=== PATIENT | female | born 1955 | race Caucasian/White ===

== ENCOUNTER 2018-01-27 13:28 | Emergency (ER) | payer MEDICARE, OTHER ==
[~2018-01-27] VITALS: Ht 160 cm; Wt 92.5 kg
[~2018-01-27 13:28] MED LIST: ALBIPROI; ALBU90OI INH; ALPR.25 PO; AMIT10 PO; AMOCLA500 PO; BUPR150T2; BUSP10 PO; BUSP15 PO; CYCL10 PO; Diflucan100 MG PO; ESCI20 PO; ESTR.625; FOLI1 PO; FURO40; GLIP5 PO; HUMIRA40 MG/0.1 SQ; HYDACE5 PO; HYDGUAL120 PO; HYDMOR2; Lantus100 UNIT/1 SC; MESA400ER; METHOTREXA25 MG/1 M3; METTREX2.5; MONT10T PO; Mucinex600 MG PO; OXYC10TA19; PANT40; PHENA200 PO; PRED20 PO; Prednisone20 MG PO; Prinivil10 MG PO; SITA100T2 PO; SULTRIDS PO; Simvastatin20 MG PO; TIOT18 IH; TIZANIDINE HCL4 MG PO; TRAZ100 PO; VITAMIN C500 MG PO; ZINC50 MG; Zithromax250 MG PO
[2018-01-27 14:43] LABS: BASOPHILS ABSOLUTE AUTO 0.02 K/mm3 (0.00-0.23); BASOPHILS PERCENT AUTO 0 % (0-2); EOSINOPHILS PERCENT AUTO 0 % (0-6); Hematocrit 43.3 % (33.0-51.0); Hemoglobin 14.5 g/dL (11.5-16.0); IMMATURE GRAN ABSOLUTE AUTO 0.07 K/mm3 (0.00-0.10); IMMATURE GRAN PERCENT AUTO 1 % (0-1); LYMPHOCYTES ABSOLUTE AUTO 0.75 K/mm3 (0.84-5.20); LYMPHOCYTES PERCENT AUTO 5 % (21-46); MONOCYTES ABSOLUTE AUTO 0.42 K/mm3 (0.16-1.47); MONOCYTES PERCENT AUTO 3 % (4-13); Mean Corpuscular HGB 31.2 pg (26.0-34.0); Mean Corpuscular HGB Conc 33.5 g/dL (31.5-36.5); Mean Corpuscular Volume 93 fL (80-100); Mean Platelet Volume 10.8 fL (9.1-12.4); NEUTROPHILS ABSOLUTE AUTO 13.31 K/mm3 (1.96-9.15); NEUTROPHILS PERCENT AUTO 91 % (41-73); Platelet Count 142 K/mm3 (150-400); RDW Coefficient Variation 13.2 % (11.7-14.2); Red Blood Cell Count 4.65 M/mm3 (3.80-5.20); White Blood Cell Count 14.57 K/mm3 (4.00-11.30)
[2018-01-27 15:02] LABS: Alanine Aminotransfer (ALT/SGP 26 U/L (12-78); Albumin, Blood 3.5 g/dL (3.4-5.0); Albumin/Globulin Ratio 0.9 (0.8-1.8); Alk Phos 91 U/L (50-136); Anion Gap 9 mmol/L (6-16); Aspartate Aminotrans (AST/SGOT 24 U/L (12-37); Bilirubin, Total 0.6 mg/dL (0.1-1.0); Blood Urea Nitrogen 16 mg/dL (8-24); CO2, Blood 29 mmol/L (21-32); Chloride, Blood 100 mmol/L (98-108); Creatinine, Blood 0.67 mg/dL (0.40-1.00); Globulin, Blood 3.9 g/dL (2.2-4.0); Glomerular Filtration Rate >60 (60-); Glucose, Blood 325 mg/dL (70-99); Potassium, Blood 3.7 mmol/L (3.5-5.5); Sodium, Blood 138 mmol/L (136-145); Total Protein, Blood 7.4 g/dL (6.4-8.2)
[2018-01-27] MEDS ORDERED: INSULANPEN (15:06)
[2018-01-27] MEDS ORDERED: BASAGLAR K100 UNIT/1 (15:08)
[2018-01-27] MEDS ORDERED: PRED20 PO (17:29)
[2018-01-27] MEDS ORDERED: Norco 10-325 T1 EACH PO (17:34)
== END 2018-01-27 17:14 | disposition home or self-care (01) ==
LOC: ER 13:28
PROVIDERS: Emergency Medicine
DX: K50.90 Crohn's disease, unspecified, without complications (principal); Z88.8 Allergy status to other drugs, medicaments and biological substances; Z88.2 Allergy status to sulfonamides; Z88.5 Allergy status to narcotic agent; Z88.1 Allergy status to other antibiotic agents; Z79.899 Other long term (current) drug therapy; Z79.4 Long term (current) use of insulin; Z79.891 Long term (current) use of opiate analgesic; Z79.52 Long term (current) use of systemic steroids; I10 Essential (primary) hypertension; J44.9 Chronic obstructive pulmonary disease, unspecified; E11.9 Type 2 diabetes mellitus without complications; F17.200 Nicotine dependence, unspecified, uncomplicated
CPT/HCPCS: 36415; 74177; 80053; 83690; 85025; 99284; Q9967

== ENCOUNTER 2018-02-20 20:44 | Inpatient (IN) | payer MEDICARE, OTHER ==
[~2018-02-20] VITALS: Ht 160 cm; Wt 93.8 kg
[2018-02-20 21:20] LABS: BASOPHILS ABSOLUTE AUTO 0.01 K/mm3 (0.00-0.23); BASOPHILS PERCENT AUTO 0 % (0-2); EOSINOPHILS ABSOLUTE AUTO 0.01 K/mm3 (0.00-0.68); EOSINOPHILS PERCENT AUTO 0 % (0-6); Hematocrit 41.7 % (33.0-51.0); Hemoglobin 13.8 g/dL (11.5-16.0); IMMATURE GRAN ABSOLUTE AUTO 0.06 K/mm3 (0.00-0.10); IMMATURE GRAN PERCENT AUTO 0 % (0-1); LYMPHOCYTES PERCENT AUTO 9 % (21-46); MONOCYTES ABSOLUTE AUTO 1.32 K/mm3 (0.16-1.47); MONOCYTES PERCENT AUTO 10 % (4-13); Mean Corpuscular HGB 31.7 pg (26.0-34.0); Mean Corpuscular HGB Conc 33.1 g/dL (31.5-36.5); Mean Corpuscular Volume 96 fL (80-100); Mean Platelet Volume 11.3 fL (9.1-12.4); NEUTROPHILS ABSOLUTE AUTO 11.18 K/mm3 (1.96-9.15); NEUTROPHILS PERCENT AUTO 81 % (41-73); Platelet Count 144 K/mm3 (150-400); RDW Coefficient Variation 14.2 % (11.7-14.2); RDW Standard Deviation 50.1 fL (35.1-46.3); Red Blood Cell Count 4.36 M/mm3 (3.80-5.20); White Blood Cell Count 13.88 K/mm3 (4.00-11.30)
[2018-02-20 21:32] LABS: Alanine Aminotransfer (ALT/SGP 33 U/L (12-78); Albumin, Blood 3.3 g/dL (3.4-5.0); Albumin/Globulin Ratio 0.9 (0.8-1.8); Alk Phos 65 U/L (50-136); Anion Gap 9 mmol/L (6-16); Aspartate Aminotrans (AST/SGOT 21 U/L (12-37); Bilirubin, Total 0.5 mg/dL (0.1-1.0); Blood Urea Nitrogen 21 mg/dL (8-24); Bun/Creatinine Ratio 26.2 (12.0-20.0); CO2, Blood 28 mmol/L (21-32); Calcium, Blood 9.2 mg/dL (8.5-10.1); Chloride, Blood 102 mmol/L (98-108); Globulin, Blood 3.8 g/dL (2.2-4.0); Glomerular Filtration Rate >60 (60-); Glucose, Blood 299 mg/dL (70-99); Potassium, Blood 4.3 mmol/L (3.5-5.5); Sodium, Blood 139 mmol/L (136-145); Total Protein, Blood 7.1 g/dL (6.4-8.2)
[2018-02-20 21:36] LABS: Source, Urine Clean Catch
[2018-02-20 21:46] LABS: Bilirubin, Urine Neg (Neg); Blood, Urine 5+ (Neg); Glucose Qualitative, Urine Neg (Neg); Ketones, Urine Neg (Neg); Leukocyte Esterase, Urine 2+ (Neg); Nitrite, Urine Neg (Neg); Protein, Urine Neg (Neg); Specific Gravity, Urine 1.025 (1.003-1.022); Urobilinogen, Urine NORM (Normal)
[2018-02-20 21:51] LABS: Appearance, Urine Clear (Clear); Color, Urine Yellow (P-Yellow)
[2018-02-20 21:52] LABS: Bacteria Many /hpf; Red Blood Cells, Urine 0-2 /hpf (0-2); Squamous Epithelial Cells Mod /hpf (Few)
[2018-02-21 03:29] LABS: Adenovirus F 40/41 Not Detected (NOT DETECT); Astrovirus Not Detected (NOT DETECT); Campylobacter Sp Not Detected (NOT DETECT); Cryptosporidium Not Detected (NOT DETECT); Cyclospora Cayetanensis Not Detected (NOT DETECT); E. Coli O157 Not Detected (NOT DETECT); Entamoeba Histolytica Not Detected (NOT DETECT); Enteroaggregative E. coli-EAEC Not Detected (NOT DETECT); Enteropathogenic E. coli-EPEC Not Detected (NOT DETECT); Enterotoxigenic E. coli-ETEC Not Detected (NOT DETECT); Giardia Lamblia Not Detected (NOT DETECT); Norovirus GI/GII Not Detected (NOT DETECT); Plesiomonas Shigelloides Not Detected (NOT DETECT); Rotavirus A Not Detected (NOT DETECT); Salmonella Sp Not Detected (NOT DETECT); Sapovirus Not Detected (NOT DETECT); Shiga Toxin-prod E. coli-STEC Not Detected (NOT DETECT); Shigella/Enteroin E. coli-EIEC Not Detected (NOT DETECT); Vibrio Cholerae Not Detected (NOT DETECT); Vibrio Sp Not Detected (NOT DETECT); Yersinia Enterocolitica Not Detected (NOT DETECT)
[2018-02-21 10:22] LABS: Hematocrit 39.5 % (33.0-51.0); Hemoglobin 13.1 g/dL (11.5-16.0); Mean Corpuscular HGB 31.3 pg (26.0-34.0); Mean Corpuscular HGB Conc 33.2 g/dL (31.5-36.5); Mean Corpuscular Volume 94 fL (80-100); Platelet Count 126 K/mm3 (150-400); RDW Coefficient Variation 14.3 % (11.7-14.2); RDW Standard Deviation 49.8 fL (35.1-46.3); Red Blood Cell Count 4.19 M/mm3 (3.80-5.20); White Blood Cell Count 14.63 K/mm3 (4.00-11.30)
[2018-02-21 10:42] LABS: Alanine Aminotransfer (ALT/SGP 32 U/L (12-78); Albumin, Blood 2.9 g/dL (3.4-5.0); Albumin/Globulin Ratio 0.9 (0.8-1.8); Alk Phos 53 U/L (50-136); Anion Gap 8 mmol/L (6-16); Aspartate Aminotrans (AST/SGOT 17 U/L (12-37); Bilirubin, Total 0.9 mg/dL (0.1-1.0); Blood Urea Nitrogen 17 mg/dL (8-24); Bun/Creatinine Ratio 28.2 (12.0-20.0); CO2, Blood 30 mmol/L (21-32); Calcium, Blood 8.4 mg/dL (8.5-10.1); Chloride, Blood 104 mmol/L (98-108); Globulin, Blood 3.4 g/dL (2.2-4.0); Glomerular Filtration Rate >60 (60-); Glucose, Blood 212 mg/dL (70-99); Potassium, Blood 4.4 mmol/L (3.5-5.5); Sodium, Blood 142 mmol/L (136-145); Total Protein, Blood 6.3 g/dL (6.4-8.2)
[2018-02-22 05:09] LABS: BASOPHILS ABSOLUTE AUTO 0.01 K/mm3 (0.00-0.23); BASOPHILS PERCENT AUTO 0 % (0-2); EOSINOPHILS PERCENT AUTO 0 % (0-6); Hematocrit 40.9 % (33.0-51.0); Hemoglobin 13.6 g/dL (11.5-16.0); IMMATURE GRAN ABSOLUTE AUTO 0.07 K/mm3 (0.00-0.10); IMMATURE GRAN PERCENT AUTO 1 % (0-1); LYMPHOCYTES ABSOLUTE AUTO 0.48 K/mm3 (0.84-5.20); LYMPHOCYTES PERCENT AUTO 4 % (21-46); MONOCYTES PERCENT AUTO 3 % (4-13); Mean Corpuscular HGB 31.4 pg (26.0-34.0); Mean Corpuscular HGB Conc 33.3 g/dL (31.5-36.5); Mean Corpuscular Volume 95 fL (80-100); Mean Platelet Volume 11.2 fL (9.1-12.4); NEUTROPHILS ABSOLUTE AUTO 11.31 K/mm3 (1.96-9.15); NEUTROPHILS PERCENT AUTO 93 % (41-73); Platelet Count 117 K/mm3 (150-400); RDW Coefficient Variation 13.8 % (11.7-14.2); Red Blood Cell Count 4.33 M/mm3 (3.80-5.20); White Blood Cell Count 12.17 K/mm3 (4.00-11.30)
[2018-02-22 05:29] LABS: Anion Gap 9 mmol/L (6-16); Blood Urea Nitrogen 19 mg/dL (8-24); Bun/Creatinine Ratio 35.5 (12.0-20.0); CO2, Blood 27 mmol/L (21-32); Calcium, Blood 8.4 mg/dL (8.5-10.1); Chloride, Blood 105 mmol/L (98-108); Creatinine, Blood 0.54 mg/dL (0.40-1.00); Glomerular Filtration Rate >60 (60-); Glucose, Blood 279 mg/dL (70-99); Sodium, Blood 141 mmol/L (136-145)
[2018-02-23 04:39] LABS: BASOPHILS ABSOLUTE AUTO 0.01 K/mm3 (0.00-0.23); BASOPHILS PERCENT AUTO 0 % (0-2); EOSINOPHILS PERCENT AUTO 0 % (0-6); Hematocrit 39.4 % (33.0-51.0); Hemoglobin 13.1 g/dL (11.5-16.0); IMMATURE GRAN ABSOLUTE AUTO 0.09 K/mm3 (0.00-0.10); IMMATURE GRAN PERCENT AUTO 1 % (0-1); LYMPHOCYTES ABSOLUTE AUTO 0.42 K/mm3 (0.84-5.20); LYMPHOCYTES PERCENT AUTO 3 % (21-46); MONOCYTES ABSOLUTE AUTO 0.53 K/mm3 (0.16-1.47); MONOCYTES PERCENT AUTO 4 % (4-13); Mean Corpuscular HGB 30.8 pg (26.0-34.0); Mean Corpuscular HGB Conc 33.2 g/dL (31.5-36.5); Mean Corpuscular Volume 93 fL (80-100); Mean Platelet Volume 11.2 fL (9.1-12.4); NEUTROPHILS ABSOLUTE AUTO 13.42 K/mm3 (1.96-9.15); NEUTROPHILS PERCENT AUTO 93 % (41-73); Platelet Count 110 K/mm3 (150-400); RDW Coefficient Variation 13.9 % (11.7-14.2); RDW Standard Deviation 47.6 fL (35.1-46.3); Red Blood Cell Count 4.25 M/mm3 (3.80-5.20); White Blood Cell Count 14.47 K/mm3 (4.00-11.30)
[2018-02-23 04:56] LABS: Anion Gap 7 mmol/L (6-16); Blood Urea Nitrogen 20 mg/dL (8-24); Bun/Creatinine Ratio 40.2 (12.0-20.0); CO2, Blood 28 mmol/L (21-32); Calcium, Blood 8.2 mg/dL (8.5-10.1); Chloride, Blood 107 mmol/L (98-108); Glomerular Filtration Rate >60 (60-); Glucose, Blood 300 mg/dL (70-99); Potassium, Blood 3.9 mmol/L (3.5-5.5); Sodium, Blood 142 mmol/L (136-145)
[2018-02-24 09:06] LABS: BASOPHILS ABSOLUTE AUTO 0.01 K/mm3 (0.00-0.23); BASOPHILS PERCENT AUTO 0 % (0-2); EOSINOPHILS PERCENT AUTO 0 % (0-6); Hemoglobin 13.4 g/dL (11.5-16.0); IMMATURE GRAN ABSOLUTE AUTO 0.11 K/mm3 (0.00-0.10); IMMATURE GRAN PERCENT AUTO 1 % (0-1); LYMPHOCYTES ABSOLUTE AUTO 0.36 K/mm3 (0.84-5.20); LYMPHOCYTES PERCENT AUTO 2 % (21-46); MONOCYTES ABSOLUTE AUTO 0.67 K/mm3 (0.16-1.47); MONOCYTES PERCENT AUTO 4 % (4-13); Mean Corpuscular HGB 30.9 pg (26.0-34.0); Mean Corpuscular HGB Conc 33.5 g/dL (31.5-36.5); Mean Corpuscular Volume 92 fL (80-100); Mean Platelet Volume 10.9 fL (9.1-12.4); NEUTROPHILS ABSOLUTE AUTO 14.22 K/mm3 (1.96-9.15); NEUTROPHILS PERCENT AUTO 93 % (41-73); Platelet Count 112 K/mm3 (150-400); RDW Standard Deviation 47.4 fL (35.1-46.3); Red Blood Cell Count 4.33 M/mm3 (3.80-5.20); White Blood Cell Count 15.37 K/mm3 (4.00-11.30)
[2018-02-24 09:30] LABS: Anion Gap 9 mmol/L (6-16); Blood Urea Nitrogen 21 mg/dL (8-24); CO2, Blood 28 mmol/L (21-32); Calcium, Blood 8.7 mg/dL (8.5-10.1); Chloride, Blood 107 mmol/L (98-108); Creatinine, Blood 0.57 mg/dL (0.40-1.00); Glomerular Filtration Rate >60 (60-); Glucose, Blood 298 mg/dL (70-99); Potassium, Blood 3.8 mmol/L (3.5-5.5); Sodium, Blood 144 mmol/L (136-145)
[2018-02-24] MEDS ORDERED: INSDET100 SC (11:58)
[2018-02-24] MEDS ORDERED: METCAR500 PO (12:00)
[2018-02-24] MEDS ORDERED: PRED20 PO (12:00)
[2018-02-24] MEDS ORDERED: CIPR500 PO (12:01)
[2018-02-24] MEDS ORDERED: AZO CRANBERRY1 EAC1 PO (12:02)
[2018-02-24] MEDS ORDERED: Novolog Fl100 UNIT/1 SC (12:07)
[2018-02-24] MEDS ORDERED: NICO21TP TOP (12:08)
== END 2018-02-24 12:47 | disposition home or self-care (01) | DRG 386 ==
LOC: ER 20:44 → MEDS 02-21
PROVIDERS: Emergency Medicine; Family Medicine; Internal Medicine
DX: K50.918 Crohn's disease, unspecified, with other complication (principal); K92.1 Melena; E86.0 Dehydration; E11.65 Type 2 diabetes mellitus with hyperglycemia; R30.0 Dysuria; B37.9 Candidiasis, unspecified; J44.9 Chronic obstructive pulmonary disease, unspecified; E66.9 Obesity, unspecified; Z68.35 Body mass index [BMI] 35.0-35.9, adult; F17.210 Nicotine dependence, cigarettes, uncomplicated; Z79.4 Long term (current) use of insulin; Z79.52 Long term (current) use of systemic steroids; Z79.891 Long term (current) use of opiate analgesic; Z79.899 Other long term (current) drug therapy
CPT/HCPCS: 36415; 80048; 80053; 81001; 82947; 84145; 85025; 85027; 85651; 86140; 87015; 87045; 87046; 87086; 87205; 87493; 87507; 87899; 94640; 94760; 96361; 96374; 96375; 99285-25; J0744; J1720; J1815; J2405; J2930; J3010; J7030

== ENCOUNTER → 2018-02-20 | Outpatient (CLI) | payer MEDICARE, OTHER ==
[~2018-02-20] MED LIST changes: +BASAGLAR K100 UNIT/1; +INSULANPEN; +Norco 10-325 T1 EACH PO
== END | disposition home or self-care (01) ==
LOC: LAB 15:22 → LAB FUT 02-19 15:50
DX: K50.113 Crohn's disease of large intestine with fistula (principal)
CPT/HCPCS: 87493

== ENCOUNTER 2018-03-11 17:55 | Inpatient (IN) | payer MEDICARE ==
[~2018-03-11] VITALS: Ht 160 cm; Wt 91.3 kg
[~2018-03-11 17:55] MED LIST changes: +AZO CRANBERRY1 EAC1 PO; +CIPR500 PO; +INSDET100 SC; +METCAR500 PO; +NICO21TP TOP; +Novolog Fl100 UNIT/1 SC; -ZINC50 MG; +ZINC50 MG PO
[2018-03-11 19:03] LABS: BASOPHILS ABSOLUTE AUTO 0.01 K/mm3 (0.00-0.23); BASOPHILS PERCENT AUTO 0 % (0-2); EOSINOPHILS PERCENT AUTO 0 % (0-6); Hematocrit 42.5 % (33.0-51.0); Hemoglobin 14.2 g/dL (11.5-16.0); IMMATURE GRAN ABSOLUTE AUTO 0.05 K/mm3 (0.00-0.10); IMMATURE GRAN PERCENT AUTO 1 % (0-1); LYMPHOCYTES ABSOLUTE AUTO 0.38 K/mm3 (0.84-5.20); LYMPHOCYTES PERCENT AUTO 4 % (21-46); MONOCYTES ABSOLUTE AUTO 0.19 K/mm3 (0.16-1.47); MONOCYTES PERCENT AUTO 2 % (4-13); Mean Corpuscular HGB 31.6 pg (26.0-34.0); Mean Corpuscular HGB Conc 33.4 g/dL (31.5-36.5); Mean Corpuscular Volume 94 fL (80-100); Mean Platelet Volume 10.8 fL (9.1-12.4); NEUTROPHILS ABSOLUTE AUTO 9.35 K/mm3 (1.96-9.15); NEUTROPHILS PERCENT AUTO 94 % (41-73); Platelet Count 106 K/mm3 (150-400); RDW Coefficient Variation 14.3 % (11.7-14.2); RDW Standard Deviation 49.9 fL (35.1-46.3); White Blood Cell Count 9.98 K/mm3 (4.00-11.30)
[2018-03-11 19:12] LABS: Alanine Aminotransfer (ALT/SGP 49 U/L (12-78); Albumin, Blood 3.1 g/dL (3.4-5.0); Albumin/Globulin Ratio 0.9 (0.8-1.8); Alk Phos 70 U/L (50-136); Anion Gap 8 mmol/L (6-16); Aspartate Aminotrans (AST/SGOT 24 U/L (12-37); Bilirubin, Total 0.6 mg/dL (0.1-1.0); Blood Urea Nitrogen 12 mg/dL (8-24); Bun/Creatinine Ratio 19.6 (12.0-20.0); CO2, Blood 29 mmol/L (21-32); Calcium, Blood 8.6 mg/dL (8.5-10.1); Chloride, Blood 100 mmol/L (98-108); Creatinine, Blood 0.61 mg/dL (0.40-1.00); Globulin, Blood 3.6 g/dL (2.2-4.0); Glomerular Filtration Rate >60 (60-); Glucose, Blood 452 mg/dL (70-99); Sodium, Blood 137 mmol/L (136-145); Total Protein, Blood 6.7 g/dL (6.4-8.2)
[2018-03-12] MEDS ORDERED: TIZANIDINE HCL4 MG PO (00:06)
[2018-03-12] MEDS ORDERED: Bisoprolol Fumar5 MG PO (00:16)
[2018-03-12 03:20] LABS: Source, Urine Clean Catch
[2018-03-12 03:25] LABS: Bilirubin, Urine Neg (Neg); Blood, Urine Neg (Neg); Glucose Qualitative, Urine 3+ (Neg); Ketones, Urine Neg (Neg); Leukocyte Esterase, Urine Neg (Neg); Nitrite, Urine Neg (Neg); Protein, Urine Neg (Neg); Urobilinogen, Urine NORM (Normal)
[2018-03-12 03:36] LABS: Appearance, Urine Clear (Clear); Color, Urine Yellow (P-Yellow)
[2018-03-13 04:22] LABS: BASOPHILS ABSOLUTE AUTO 0.01 K/mm3 (0.00-0.23); BASOPHILS PERCENT AUTO 0 % (0-2); EOSINOPHILS PERCENT AUTO 0 % (0-6); Hematocrit 40.8 % (33.0-51.0); Hemoglobin 13.5 g/dL (11.5-16.0); IMMATURE GRAN ABSOLUTE AUTO 0.03 K/mm3 (0.00-0.10); IMMATURE GRAN PERCENT AUTO 0 % (0-1); LYMPHOCYTES ABSOLUTE AUTO 0.62 K/mm3 (0.84-5.20); LYMPHOCYTES PERCENT AUTO 6 % (21-46); MONOCYTES PERCENT AUTO 4 % (4-13); Mean Corpuscular HGB 30.9 pg (26.0-34.0); Mean Corpuscular HGB Conc 33.1 g/dL (31.5-36.5); Mean Corpuscular Volume 93 fL (80-100); Mean Platelet Volume 11.2 fL (9.1-12.4); NEUTROPHILS ABSOLUTE AUTO 9.83 K/mm3 (1.96-9.15); NEUTROPHILS PERCENT AUTO 90 % (41-73); Platelet Count 104 K/mm3 (150-400); RDW Coefficient Variation 14.4 % (11.7-14.2); RDW Standard Deviation 49.6 fL (35.1-46.3); Red Blood Cell Count 4.37 M/mm3 (3.80-5.20); White Blood Cell Count 10.89 K/mm3 (4.00-11.30)
[2018-03-13 04:44] LABS: Alanine Aminotransfer (ALT/SGP 39 U/L (12-78); Albumin, Blood 2.9 g/dL (3.4-5.0); Albumin/Globulin Ratio 0.9 (0.8-1.8); Alk Phos 59 U/L (50-136); Anion Gap 7 mmol/L (6-16); Aspartate Aminotrans (AST/SGOT 18 U/L (12-37); Bilirubin, Total 1.1 mg/dL (0.1-1.0); Blood Urea Nitrogen 17 mg/dL (8-24); Bun/Creatinine Ratio 33.1 (12.0-20.0); C-REACTIVE PROTEIN, EXT RANGE 0.294 mg/dL (0.000-0.300); CO2, Blood 30 mmol/L (21-32); Calcium, Blood 8.7 mg/dL (8.5-10.1); Chloride, Blood 108 mmol/L (98-108); Creatinine, Blood 0.51 mg/dL (0.40-1.00); Globulin, Blood 3.4 g/dL (2.2-4.0); Glomerular Filtration Rate >60 (60-); Glucose, Blood 116 mg/dL (70-99); Potassium, Blood 3.9 mmol/L (3.5-5.5); Sodium, Blood 145 mmol/L (136-145); Total Protein, Blood 6.3 g/dL (6.4-8.2)
[2018-03-14] MEDS ORDERED: SIME80CH PO (09:33)
== END 2018-03-14 13:24 | disposition home or self-care (01) | DRG 387 ==
LOC: ER 17:55 → MEDS 23:46 → ENPENDDIS 03-14 08:42 → MEDS 03-14 13:24
PROVIDERS: Emergency Medicine; Internal Medicine
DX: K50.10 Crohn's disease of large intestine without complications (principal); Z90.49 Acquired absence of other specified parts of digestive tract; I10 Essential (primary) hypertension; J44.9 Chronic obstructive pulmonary disease, unspecified; F17.210 Nicotine dependence, cigarettes, uncomplicated; E11.9 Type 2 diabetes mellitus without complications; Z79.4 Long term (current) use of insulin; E78.5 Hyperlipidemia, unspecified; K76.0 Fatty (change of) liver, not elsewhere classified; E66.9 Obesity, unspecified
CPT/HCPCS: 36415; 80053; 81003; 82947; 83690; 85025; 86140; 96361; 96374; 99285-25; J1650; J2920; J2930; J3010; J7030

== ENCOUNTER 2018-03-19 06:02 | Observation (INO) | payer MEDICARE, OTHER ==
[~2018-03-19] VITALS: Ht 160 cm; Wt 93.1 kg
[~2018-03-19 06:02] MED LIST changes: +AZIT500 PO; +Bisoprolol Fumar5 MG PO; +GUAI600T33 PO; +Nystatin100000 UN1 PO; -OXYC10TA19; +OXYC10TA19 PO; +PRED5EL PO; +SIME80CH PO
[2018-03-19] MEDS ORDERED: PRED20 PO (06:38)
[2018-03-19 06:43] LABS: BASOPHILS ABSOLUTE AUTO 0.02 K/mm3 (0.00-0.23); BASOPHILS PERCENT AUTO 0 % (0-2); EOSINOPHILS ABSOLUTE AUTO 0.16 K/mm3 (0.00-0.68); EOSINOPHILS PERCENT AUTO 2 % (0-6); Hematocrit 43.1 % (33.0-51.0); Hemoglobin 13.8 g/dL (11.5-16.0); IMMATURE GRAN ABSOLUTE AUTO 0.07 K/mm3 (0.00-0.10); IMMATURE GRAN PERCENT AUTO 1 % (0-1); LYMPHOCYTES ABSOLUTE AUTO 1.76 K/mm3 (0.84-5.20); LYMPHOCYTES PERCENT AUTO 18 % (21-46); MONOCYTES ABSOLUTE AUTO 2.34 K/mm3 (0.16-1.47); MONOCYTES PERCENT AUTO 24 % (4-13); Mean Corpuscular HGB 31.7 pg (26.0-34.0); Mean Corpuscular Volume 99 fL (80-100); Mean Platelet Volume 10.9 fL (9.1-12.4); NEUTROPHILS ABSOLUTE AUTO 5.46 K/mm3 (1.96-9.15); NEUTROPHILS PERCENT AUTO 56 % (41-73); Platelet Count 117 K/mm3 (150-400); RDW Coefficient Variation 13.6 % (11.7-14.2); RDW Standard Deviation 50.2 fL (35.1-46.3); Red Blood Cell Count 4.36 M/mm3 (3.80-5.20); White Blood Cell Count 9.81 K/mm3 (4.00-11.30)
[2018-03-19 06:59] LABS: Alanine Aminotransfer (ALT/SGP 32 U/L (12-78); Albumin, Blood 2.9 g/dL (3.4-5.0); Albumin/Globulin Ratio 0.8 (0.8-1.8); Alk Phos 69 U/L (50-136); Anion Gap 2 mmol/L (6-16); Aspartate Aminotrans (AST/SGOT 16 U/L (12-37); Bilirubin, Total 0.8 mg/dL (0.1-1.0); Blood Urea Nitrogen 8 mg/dL (8-24); Bun/Creatinine Ratio 15.5 (12.0-20.0); CO2, Blood 43 mmol/L (21-32); Calcium, Blood 8.4 mg/dL (8.5-10.1); Chloride, Blood 100 mmol/L (98-108); Creatinine, Blood 0.52 mg/dL (0.40-1.00); Globulin, Blood 3.8 g/dL (2.2-4.0); Glomerular Filtration Rate >60 (60-); Glucose, Blood 125 mg/dL (70-99); Potassium, Blood 3.7 mmol/L (3.5-5.5); Sodium, Blood 145 mmol/L (136-145); Total Protein, Blood 6.7 g/dL (6.4-8.2)
[2018-03-24 10:54] LABS: Source, Urine Clean Catch
[2018-03-24] MEDS ORDERED: METO50ER PO (10:57)
[2018-03-24] MEDS ORDERED: Budesonide0.5 MG/2 M INH (10:57)
[2018-03-24] MEDS ORDERED: PRED S O P BOTHEYES (10:58)
[2018-03-24] MEDS ORDERED: Humalog100 UNIT/3 SC ×2 (10:59→11:03)
[2018-03-24 11:04] LABS: Bilirubin, Urine Neg (Neg); Blood, Urine Neg (Neg); Glucose Qualitative, Urine Neg (Neg); Ketones, Urine Neg (Neg); Leukocyte Esterase, Urine Neg (Neg); Nitrite, Urine Neg (Neg); Protein, Urine Neg (Neg); Specific Gravity, Urine 1.015 (1.003-1.022); Urobilinogen, Urine NORM (Normal)
[2018-03-24] MEDS ORDERED: LEVFLO500 PO (11:04)
[2018-03-24] MEDS ORDERED: ALBU3IS INH (11:04)
[2018-03-24] MEDS ORDERED: Acidophilus La1 EACH PO (11:04)
[2018-03-24] MEDS ORDERED: VARE1 PO (11:05)
[2018-03-24] MEDS ORDERED: NYST237S PO (11:05)
[2018-03-24 11:09] LABS: Appearance, Urine Clear (Clear); Color, Urine Yellow (P-Yellow)
== END 2018-03-24 14:11 | disposition home or self-care (01) ==
LOC: ER 06:02 → MEDS 06:03 → ER 06:03 → MEDS 06:03 → ER 03-20 06:03 → MEDS 03-20 06:03
PROVIDERS: Emergency Medicine; Internal Medicine
DX: J96.21 Acute and chronic respiratory failure with hypoxia (principal); J44.1 Chronic obstructive pulmonary disease with (acute) exacerbation; E11.9 Type 2 diabetes mellitus without complications; K50.90 Crohn's disease, unspecified, without complications; E87.6 Hypokalemia; K75.81 Nonalcoholic steatohepatitis (NASH); K74.60 Unspecified cirrhosis of liver; I10 Essential (primary) hypertension; F17.210 Nicotine dependence, cigarettes, uncomplicated; Z88.5 Allergy status to narcotic agent; Z88.6 Allergy status to analgesic agent; Z88.1 Allergy status to other antibiotic agents; Z79.899 Other long term (current) drug therapy; Z79.4 Long term (current) use of insulin; Z79.2 Long term (current) use of antibiotics
CPT/HCPCS: 36415; 71046; 80053; 81003; 82947; 85025; 87070; 87205; 93005; 93010; 94640; 94667; 94760; 94761; 96365; 96366; 96375; 99285-25; A9270; G0378; J1650; J1956; J2930

== ENCOUNTER → 2018-11-01 | Outpatient (CLI) | payer MEDICARE, OTHER ==
[~2018-11-01] MED LIST changes: +ALBU3IS INH; +Acidophilus La1 EACH PO; +Budesonide0.5 MG/2 M INH; +Humalog100 UNIT/3 SC; +LEVFLO500 PO; +METO50ER PO; +NYST237S PO; +Narcan 0.40.4 MG/ML; +PRED S O P BOTHEYES; +VARE1 PO
== END | disposition home or self-care (01) ==
LOC: LAB SHORT 16:02 → LAB SRC 16:02
DX: R30.0 Dysuria (principal)
CPT/HCPCS: 87077; 87086; 87186

== ENCOUNTER → 2018-12-13 | Outpatient (CLI) | payer MEDICARE, OTHER ==
[2018-12-13 15:47] LABS: Source, Urine Clean Catch
[2018-12-13 17:25] LABS: Bilirubin, Urine Neg (Neg); Blood, Urine Neg (Neg); Glucose Qualitative, Urine Neg (Neg); Ketones, Urine 1+ (Neg); Leukocyte Esterase, Urine 1+ (Neg); Nitrite, Urine Neg (Neg); Protein, Urine 1+ (Neg); Specific Gravity, Urine 1.025 (1.003-1.022); Urobilinogen, Urine 1+ (Normal)
[2018-12-13 17:55] LABS: Appearance, Urine Hazy (Clear); Color, Urine Yellow (P-Yellow)
[2018-12-13 17:56] LABS: Bacteria Mod /hpf; Squamous Epithelial Cells Many /hpf (Few)
[2018-12-13 17:57] LABS: Calcium Oxalate Crystals Mod /hpf
== END | disposition home or self-care (01) ==
LOC: LAB SHORT 15:45 → LAB SRC 15:45 → EDSTATUS 11-03 12:30 → LAB FUT 11-03 12:30
PROVIDERS: Nurse Practitioner Family
DX: N30.00 Acute cystitis without hematuria (principal)
CPT/HCPCS: 81001; 87086

== ENCOUNTER → 2019-01-21 | Outpatient (CLI) | payer MEDICARE, OTHER ==
[2019-01-26 08:14] LABS: HPV 16 Positive (Negative); HPV 18 Negative (Negative); HPV OTHER HR TYPES Negative (Negative)
== END | disposition home or self-care (01) ==
LOC: LAB SHORT 17:19 → LAB 17:19
PROVIDERS: Registered Nurse
DX: Z12.4 Encounter for screening for malignant neoplasm of cervix (principal)
CPT/HCPCS: 87624; G0123

== ENCOUNTER 2020-02-10 12:06 | Day surgery (SDC) | payer MEDICARE, OTHER ==
[~2020-02-10] VITALS: Ht 160 cm; Wt 94.1 kg
[~2020-02-10 12:06] MED LIST changes: +ANORO ELLIPTA1 EAC1 INH; +BASAGLAR K100 UNIT/3 SC; +Cymbalta20 MG PO; +FURO40 PO; +Flovent Disku250 MCG INH; +IPRAT-ALBUT 0.5-3 ML INH; +PULMICORT0.5 MG/21 INH
--- NOTE | 2020-02-10 14:58 | NUR ---
02/10/20 1458 Dorothea Arias SIMETHICONE USED DURING PROCEDURE.
--- NOTE | 2020-02-10 16:18 | NUR ---
02/10/20 7693 Dorothea Arias PROVIDED AT 7203. PT TOLERATED WELL.
== END 2020-02-10 16:24 | disposition home or self-care (01) ==
LOC: ORSCSDS 12:06
PROVIDERS: Internal Medicine Gastroenterology
PROC: 0DBE8ZX Excision of Large Intestine, Via Natural or Artificial Opening Endoscopic, Diagnostic (ICD-10-PCS; principal; 2020-02-10 13:15)
PROC: 0DBN8ZX Excision of Sigmoid Colon, Via Natural or Artificial Opening Endoscopic, Diagnostic (ICD-10-PCS; principal; 2020-02-10 13:15)
DX: K50.90 Crohn's disease, unspecified, without complications (principal); D12.5 Benign neoplasm of sigmoid colon; R10.31 Right lower quadrant pain; K64.8 Other hemorrhoids; R19.7 Diarrhea, unspecified; I10 Essential (primary) hypertension; I25.10 Atherosclerotic heart disease of native coronary artery without angina pectoris; J44.9 Chronic obstructive pulmonary disease, unspecified; K21.9 Gastro-esophageal reflux disease without esophagitis; F17.210 Nicotine dependence, cigarettes, uncomplicated; E11.9 Type 2 diabetes mellitus without complications; E78.5 Hyperlipidemia, unspecified; Z99.81 Dependence on supplemental oxygen; E66.01 Morbid (severe) obesity due to excess calories; Z68.36 Body mass index [BMI] 36.0-36.9, adult; Z79.4 Long term (current) use of insulin; Z79.899 Other long term (current) drug therapy
CPT/HCPCS: 82947; 88305; J2704; J7120

== ENCOUNTER → 2021-03-13 | Outpatient (CLI) | payer MEDICARE, OTHER | LOC: LAB SHORT 14:30 | DX: Z48.817 Encounter for surgical aftercare following surgery on the skin and subcutaneous tissue (principal); Z48.02 Encounter for removal of sutures | CPT/HCPCS: 87070; 87205 ==

== ENCOUNTER → 2021-06-12 | Outpatient (CLI) | payer MEDICARE, OTHER | END | disposition home or self-care (01) | LOC: LAB SHORT 20:00 | DX: I10 Essential (primary) hypertension (principal); E11.51 Type 2 diabetes mellitus with diabetic peripheral angiopathy without gangrene | CPT/HCPCS: 82043 ==

== ENCOUNTER 2021-09-06 09:53 | Day surgery (SDC) | payer MEDICARE, OTHER ==
[~2021-09-06] VITALS: Ht 160 cm; Wt 96.8 kg
== END 2021-09-06 12:54 | disposition home or self-care (01) ==
LOC: ORSCSDS 09:53
PROVIDERS: Internal Medicine Gastroenterology
PROC: 0DJ08ZZ Inspection of Upper Intestinal Tract, Via Natural or Artificial Opening Endoscopic (ICD-10-PCS; principal; 2021-09-06 11:15)
DX: K74.60 Unspecified cirrhosis of liver (principal); I85.00 Esophageal varices without bleeding; Z13.810 Encounter for screening for upper gastrointestinal disorder; K76.6 Portal hypertension; J44.9 Chronic obstructive pulmonary disease, unspecified; K31.89 Other diseases of stomach and duodenum; K21.9 Gastro-esophageal reflux disease without esophagitis; E66.9 Obesity, unspecified; Z68.37 Body mass index [BMI] 37.0-37.9, adult; F41.8 Other specified anxiety disorders; E11.9 Type 2 diabetes mellitus without complications; I10 Essential (primary) hypertension; F17.210 Nicotine dependence, cigarettes, uncomplicated; Z79.84 Long term (current) use of oral hypoglycemic drugs; Z79.899 Other long term (current) drug therapy
CPT/HCPCS: 82947; J2001; J2250; J2405; J2704; J7120; J7799

== ENCOUNTER → 2021-10-28 | Outpatient (CLI) | payer MEDICARE, OTHER | LOC: LAB SHORT 12:54 | DX: L02.211 Cutaneous abscess of abdominal wall (principal) | CPT/HCPCS: 87070; 87205 ==

== ENCOUNTER 2021-12-14 00:11 | Inpatient (IN) | payer MEDICARE, OTHER ==
[~2021-12-14] VITALS: Ht 160 cm; Wt 84.3 kg
[~2021-12-14 00:11] MED LIST changes: +Bupropion HCl75 MG PO; +Buspirone HCl15 MG PO; +ERYT1OIN; +FLUC150A PO; +HUMIRA PEN40 MG/0.2 SC; +LISI20 PO; +NALOXONE HCL4 MG; +OMEP20ER PO; +TRELEGY ELLIPT1 EAC1 INH; +TRIA15CR3
[2021-12-14 01:56] LABS: BASOPHILS ABSOLUTE AUTO 0.08 K/mm3 (0.00-0.23); BASOPHILS PERCENT AUTO 1 % (0-2); EOSINOPHILS ABSOLUTE AUTO 0.26 K/mm3 (0.00-0.68); EOSINOPHILS PERCENT AUTO 3 % (0-6); Hematocrit 35.9 % (33.0-51.0); Hemoglobin 11.7 g/dL (11.5-16.0); IMMATURE GRAN ABSOLUTE AUTO 0.05 K/mm3 (0.00-0.10); IMMATURE GRAN PERCENT AUTO 1 % (0-1); LYMPHOCYTES ABSOLUTE AUTO 1.49 K/mm3 (0.84-5.20); LYMPHOCYTES PERCENT AUTO 18 % (21-46); MONOCYTES PERCENT AUTO 13 % (4-13); Mean Corpuscular HGB 30.5 pg (26.0-34.0); Mean Corpuscular HGB Conc 32.6 g/dL (31.5-36.5); Mean Corpuscular Volume 94 fL (80-100); Mean Platelet Volume 10.7 fL (9.1-12.4); NEUTROPHILS ABSOLUTE AUTO 5.52 K/mm3 (1.96-9.15); NEUTROPHILS PERCENT AUTO 65 % (41-73); Platelet Count 127 K/mm3 (150-400); RDW Coefficient Variation 14.7 % (11.7-14.2); Red Blood Cell Count 3.84 M/mm3 (3.80-5.20)
[2021-12-14 01:59] LABS: Albumin, Blood 2.3 g/dL (3.4-5.0); Albumin/Globulin Ratio 0.5 (0.8-1.8); Bilirubin, Total 1.6 mg/dL (0.1-1.0); Bun/Creatinine Ratio 22.6 (12.0-20.0); Calcium, Blood 9.2 mg/dL (8.5-10.1); Creatinine, Blood 1.33 mg/dL (0.40-1.00); Globulin, Blood 4.4 g/dL (2.2-4.0); Potassium, Blood 3.4 mmol/L (3.5-5.5); Total Protein, Blood 6.7 g/dL (6.4-8.2)
[2021-12-14 02:32] LABS: Bilirubin, Direct 0.8 mg/dL (0.0-0.3)
[2021-12-14 02:40] LABS: International Normalized Ratio 1.44; Prothrombin Time Results 14.8 Sec (9.7-11.5)
[2021-12-14 06:23] LABS: Bun/Creatinine Ratio 22.8 (12.0-20.0); Calcium, Blood 8.6 mg/dL (8.5-10.1); Creatinine, Blood 1.14 mg/dL (0.40-1.00); Potassium, Blood 3.5 mmol/L (3.5-5.5)
--- NOTE | 2021-12-14 21:45 | NUR ---
NURSE NOTE: ALEXA HUANG NOTIFIED PATIENTS INABILITY TO TAKE SCHEDULED PO MEDICATIONS DUE TO CONTINUED NAUSEA AND VOMITING. PATIENT UNABLE TO TOLERATE SIPS OF ANY FLUID. PATIENT HAS NO PRN ANTIEMETIC MEDICATIONS ORDERED DUE TO PROLONGED QT INTERVAL- INFORMED PLAN TO ADMINISTER IV ATIVAN. CONCERN OF PATIENT BEING A DIABETIC AND UNABLE TO TAKE PO'S, CURRENT FLUIDS OF NORMAL SALINE- REQUESTING IF APPROPRIATE TO CHANGE FLUIDS TO HAVE DEXTROSE. ALEXA HUANG GAVE TELEPHONE ORDER FOR ONE TIME DOSE 12.5MG IV PHENERGAN, CHANGE FLUIDS TO D5 0.45 NS TO RUN AT 125ML/HR. REQUESTED UPDATED MAG AND POTASSIUM DUE TO CONTINUED VOMITING, MD DECLINED DUE TO NOT BEING NECESSARY, RECENT LAB DRAW- NEW LABS NOT REQUIRED AT THIS TIME. 2249- ALEXA HUANG NOTIFIED MAGNESIUM WAS NEVER COLLECTED, REQUESTING LAB DUE TO CONTINUED VOMITING. APPROVED FOR LAB DRAW- REQUEST FOR LAB TO OBTAIN OFF OF PRIOR BLOOD DRAW PRIOR TO STICKING PATIENT. INFORMED CONTINUED VOMITING POST ADMINISTRATION OF IV ATIVAN AND PHENERGAN. GAVE TELEPHONE ORDER FOR PRN IV COMPAZINE 5 MG Q4 HOURS PRN.
--- NOTE | 2021-12-15 02:05 | NUR ---
NURSE NOTE: MD NOTIFIED OF INCREASED CONCERN FOR PATIENTS CONDITION. PT UNABLE TO CALL FOR ASSISTANCE, WHEN ROUNDING PATIENT HAS BEEN FOUND 5 TIMES COVERED IN EMESIS. PT EMESIS HAS CHANGED COLOR FROM A GREEN BILE APPEARANCE TO RED/BROWN. CONCERN FOR POSSIBLE BLEED AND FOR PATIENTS ABILITY TO PROTECT AIRWAY DUE TO INCREASED VOMITING, INABLITY TO CONTROL SECRETIONS DUE TO CONFUSION. INCREASED CONFUSION PATIENT IS OCCASIONALLY ORIENTED TO SELF ONLY RESPONDING TO HER NAME, VISUAL AND AUDITORY HALLUCINATIONS AND INABLITY TO FOLLOW COMMANDS. DUE TO CURRENT STATE MD ORDERED TRANSFER TO PCU- PLAN TO PLACE NG TUBE, RECTAL TUBE TO BE PLACED ONCE TRANSFERRED ON UNIT.
[2021-12-15 02:21] LABS: BASOPHILS ABSOLUTE AUTO 0.05 K/mm3 (0.00-0.23); BASOPHILS PERCENT AUTO 1 % (0-2); EOSINOPHILS ABSOLUTE AUTO 0.05 K/mm3 (0.00-0.68); EOSINOPHILS PERCENT AUTO 1 % (0-6); Hematocrit 34.7 % (33.0-51.0); Hemoglobin 11.4 g/dL (11.5-16.0); IMMATURE GRAN ABSOLUTE AUTO 0.05 K/mm3 (0.00-0.10); IMMATURE GRAN PERCENT AUTO 1 % (0-1); LYMPHOCYTES ABSOLUTE AUTO 1.36 K/mm3 (0.84-5.20); LYMPHOCYTES PERCENT AUTO 14 % (21-46); MONOCYTES ABSOLUTE AUTO 1.24 K/mm3 (0.16-1.47); MONOCYTES PERCENT AUTO 13 % (4-13); Mean Corpuscular HGB 30.8 pg (26.0-34.0); Mean Corpuscular HGB Conc 32.9 g/dL (31.5-36.5); Mean Corpuscular Volume 94 fL (80-100); Mean Platelet Volume 10.6 fL (9.1-12.4); NEUTROPHILS ABSOLUTE AUTO 6.85 K/mm3 (1.96-9.15); NEUTROPHILS PERCENT AUTO 71 % (41-73); Platelet Count 128 K/mm3 (150-400); RDW Standard Deviation 51.2 fL (35.1-46.3)
[2021-12-15 02:39] LABS: Albumin, Blood 2.4 g/dL (3.4-5.0); Albumin/Globulin Ratio 0.6 (0.8-1.8); Bilirubin, Total 1.7 mg/dL (0.1-1.0); Bun/Creatinine Ratio 22.3 (12.0-20.0); Calcium, Blood 8.7 mg/dL (8.5-10.1); Creatinine, Blood 1.03 mg/dL (0.40-1.00); Globulin, Blood 4.2 g/dL (2.2-4.0); Potassium, Blood 3.7 mmol/L (3.5-5.5); Total Protein, Blood 6.6 g/dL (6.4-8.2)
[2021-12-15 03:19] LABS: Source, Urine Foley catheter
[2021-12-15 03:21] LABS: Bilirubin, Urine Neg (Neg); Blood, Urine Neg (Neg); Glucose Qualitative, Urine Neg (Neg); Ketones, Urine 2+ (Neg); Leukocyte Esterase, Urine Neg (Neg); Nitrite, Urine Neg (Neg); Protein, Urine 1+ (Neg); Urobilinogen, Urine NORM (Normal)
[2021-12-15 03:26] LABS: Appearance, Urine Clear (Clear); Color, Urine Yellow (P-Yellow)
--- NOTE | 2021-12-15 06:38 | NUR ---
SHIFT SUMMARY PATIENT ARRIVED TO ICU AT 0225 FROM MEDICAL FLOOR. PATIENT ARRIVED ON 2LPM VIA NC-USES 3LPM AT HOME. PATIENT IS CONFUSED, NONSENSICAL BUT ANSWERS TO HER NAME, TRACKS TO SOUND, AND FOLLOWS SIMPLE COMMANDS. NGT PLACED ON ARRIVAL WITH IMMEDIATE 100ML OF DARK REDDISH BROWN OUT. BY END OF SHIFT IT HAS TURNED LIGHT RED. ZAYAS PLACED AND LACTULOSE ENEMA ADMINISTERED. AMMONIA IMPROVED FROM 136 TO 39. NO OTHER CHANGES DURING SHIFT.
--- NOTE | 2021-12-15 08:00 | NUR ---
[place] of Care: Care assumed at 0700hr. Patient appears to be sleeping, but occasionally restless in bed, moving all extremities. Opens eyes to verbal stimuli, but quickly falls back to sleep. Only mumbles words, incomprehensible. Follows simple commands to squeeze hands, move extremities. VSS, heart rhythm shows sinus tach, 100-110. NG in place to LIS, small amount of maroon colored drainage noted in tubing. Peripheral IV's x2 patent and intact. Johnson cath patent and intact, draining clear yellow urine. Lactulose enema administered this morning. Small amount of stool, mixed with enema per incontinent BM following enema. Stool appeared brown and loose, no s/s of blood.
--- NOTE | 2021-12-15 10:00 | NUR ---
Tx to PCU: Bed assignment received ([id number]). Transfered to PCU 12 via bed without difficulty. All belongings sent with patient to new room. Medications including Sandostatin send with patient. Report called to Tyler LIU. Tyler states she would administer new medication orders placed by Dr. Epps.
[2021-12-15 11:12] LABS: Influenza A, PCR NEGATIVE (NEGATIVE); Influenza B, PCR NEGATIVE (NEGATIVE); Resp Syncytial Virus, PCR NEGATIVE (NEGATIVE); SARS-Cov-2 (COVID-19) PCR, MMC NEGATIVE (NEGATIVE)
--- NOTE | 2021-12-15 14:46 | NUR ---
12/15/21 1446 Jennifer Arceo A procedure cancelled by anesthesia. due to increased levol of confusion
--- NOTE | 2021-12-15 18:34 | NUR ---
SHIFT SUMMARY: PT TRANSFERED TO PCU F/ICU, ARRIVING TO UNIT APPROX 1015 TODAY. PT CONTINUES CONFUSED, ORIENTED TO SELF AND CITY. PT INTERMITTENTLY AGITATED, MUMBLING, AND PULLING AT TUBES/CORDS, BILATERAL SOFT WRIST RESTRAINTS IN PLACE T/OUT SHIFT TO PROTECT PT AND EQUIPMENT. PT MAINTATINS O2 SATS ON 2 L/MIN. SIN TACH ON MONITOR. PT TO/FROM IMAGING DEPT FOR CT SCAN. NGT REMAINS IN PLACE TO LIS WITH GREENISH BROWN OUTPUT. ZAYAS CATHETER PATENT, DRAINING TO GRAVITY. PT W/SMALL AMOUNT OF STOOL T/OUT SHIFT, CLEANED NEEDED. PT REPOSITIONED PER PROTOCOL. FAMILY AT BEDSIDE DURING VISITING HOURS. WILL CONTINUE TO MONITOR AND TREAT ACCORDINGLY UNTIL CHANGE OF SHIFT.
--- NOTE | 2021-12-15 22:35 | NUR ---
NEURO: A/O to self only, responds to verbal stimuli. Speech is garbled and nonsensical and mumbled. Pupils 3 sluggish bl, wont open eyes upon command, eyes constant movement. Tremors noted t/o body. According to boyfriend, the tremors began 4 months ago in her hands, and 2 months ago in her legs. States that pt has been falling more recently and 3 wks ago had a fall that he believes she injured her head then, which is also when the confusion/N/V began. Patient has on bl SWR to protect lines, falls, and NGT. PAIN: States she has pain in her back, FACES scale 5. Reposition q2. RESP: Clear on top, fine crackles at bases. Maintains over 93% on 1L NC. CARDIOVASCULAR: Sinus tach on tele. Last QT measured at 0.32, BP stable. Strong +2 radial pulses bl, and faint tibial/pedal bl. Trace edema bl forearms. GI: Moderate abdominal distention noted with hypoactive bowel sounds. NGT secured in R nostril and draining green/brown fluid to intermittent suction. URINARY: Johnson cath in place draining small amounts of bi urine. Placement rechecked considering amount of fluid patient has received and catheter is patent. INTEGUMENTARY: Scattered bruising BUE, small abrasion on R knee. PSYCHOSOCIAL: Patient seems anxious and appears to be hallucinating, talking to no one in her room. Will update as changes occur
[2021-12-16 03:41] LABS: BASOPHILS ABSOLUTE AUTO 0.05 K/mm3 (0.00-0.23); BASOPHILS PERCENT AUTO 0 % (0-2); EOSINOPHILS ABSOLUTE AUTO 0.46 K/mm3 (0.00-0.68); EOSINOPHILS PERCENT AUTO 3 % (0-6); Hematocrit 30.4 % (33.0-51.0); Hemoglobin 10.2 g/dL (11.5-16.0); IMMATURE GRAN ABSOLUTE AUTO 0.09 K/mm3 (0.00-0.10); IMMATURE GRAN PERCENT AUTO 1 % (0-1); LYMPHOCYTES ABSOLUTE AUTO 1.64 K/mm3 (0.84-5.20); LYMPHOCYTES PERCENT AUTO 12 % (21-46); MONOCYTES ABSOLUTE AUTO 2.19 K/mm3 (0.16-1.47); MONOCYTES PERCENT AUTO 16 % (4-13); Mean Corpuscular HGB Conc 33.6 g/dL (31.5-36.5); Mean Corpuscular Volume 92 fL (80-100); Mean Platelet Volume 10.5 fL (9.1-12.4); NEUTROPHILS ABSOLUTE AUTO 9.69 K/mm3 (1.96-9.15); NEUTROPHILS PERCENT AUTO 69 % (41-73); Platelet Count 114 K/mm3 (150-400); RDW Coefficient Variation 15.1 % (11.7-14.2); RDW Standard Deviation 50.7 fL (35.1-46.3); Red Blood Cell Count 3.29 M/mm3 (3.80-5.20); White Blood Cell Count 14.12 K/mm3 (4.00-11.30)
[2021-12-16 03:57] LABS: Alanine Aminotransfer (ALT/SGP 39 U/L (12-78); Albumin, Blood 2.2 g/dL (3.4-5.0); Albumin/Globulin Ratio 0.6 (0.8-1.8); Alk Phos 59 U/L (50-136); Anion Gap 5 mmol/L (6-16); Aspartate Aminotrans (AST/SGOT 48 U/L (12-37); Bilirubin, Total 1.7 mg/dL (0.1-1.0); Blood Urea Nitrogen 14 mg/dL (8-24); CO2, Blood 34 mmol/L (21-32); Calcium, Blood 8.1 mg/dL (8.5-10.1); Chloride, Blood 101 mmol/L (98-108); Creatinine, Blood 0.87 mg/dL (0.40-1.00); Glomerular Filtration Rate >60 (60-); Glucose, Blood 242 mg/dL (70-99); Potassium, Blood 3.2 mmol/L (3.5-5.5); Sodium, Blood 140 mmol/L (136-145); Total Protein, Blood 6.2 g/dL (6.4-8.2)
--- NOTE | 2021-12-16 18:49 | NUR ---
SHIFT SUMMARY: MENTATION APPEARS TO BE IMPROVING. PT MORE ALERT AND ANSWERING SIMPLE QUESTIONS. PT RESTS INTERMITTENTLY BUT OFTEN IS MOVING ALL EXTREMITIES AND ATTEMPTING TO PULL AT LINES/TUBES. BILATERAL SWR CONTINUE IN PLACE, PT TOLERATING WELL. PT CONTINUES TO MAINTAIN O2 SATS >92% ON 1L/MIN. ST ON MONITOR. INDWELLING ZAYAS CONTINUES TO DRAIN TO GRAVITY. RECTAL TUBE PLACED TOWARDS THE END OF THIS SHIFT D/TO FREQUENT BM AND REDDENING MARCEL AREA. DIETARY DEPT WAS CONSULTED, INFUSION OF PPN INITIATED PER ORDERS. PT'S FAMILY MEMBERS TO/FROM BEDSIDE T/OUT DAY, UPDATED OFTEN ON PT STATUS AND PLAN OF CARE. PT CURRENTLY RESTING IN BED, WILL CONTINUE TO MONITOR AND TREAT ACCORDINGLY UNTIL CHANGE OF SHIFT.
[2021-12-16 20:16] LABS: C DIFFICILE DNA NEGATIVE (Negative)
--- NOTE | 2021-12-17 06:21 | NUR ---
Overnight without issues, VSS, pt mentation slowly improving, ammonia 64 this am (down 10 points since y/d), pt still in restraints for safety, did pull her rectal tube out. will continue to monitor
[2021-12-17 07:19] LABS: Anion Gap 5 mmol/L (6-16); Blood Urea Nitrogen 7 mg/dL (8-24); Bun/Creatinine Ratio 8.5 (12.0-20.0); CO2, Blood 33 mmol/L (21-32); Calcium, Blood 8.2 mg/dL (8.5-10.1); Chloride, Blood 105 mmol/L (98-108); Creatinine, Blood 0.82 mg/dL (0.40-1.00); Glomerular Filtration Rate >60 (60-); Glucose, Blood 188 mg/dL (70-99); Magnesium, Blood 1.7 mg/dL (1.6-2.4); Phosphorus, Blood 1.7 mg/dL (2.5-4.9); Potassium, Blood 3.5 mmol/L (3.5-5.5); Sodium, Blood 143 mmol/L (136-145); Triglycerides 85 mg/dL (30-160)
--- NOTE | 2021-12-17 16:15 | NUR ---
SHIFT SUMMARY Pt was very confused and only oriented to herself this morning but as the day has gone by her mentation has improved but now she is much more active and wanting to get up and walk. She is having almost constant bowel movements which I suspect is the cause of her unrest. She knows when she needs to have a BM but when we put her on the bedpan she has already gone. With x 2-3 max assist she is able to stand at the side of the bed and this after noon she was able to transfer to a recliner, which is where she is now. While she is redirectable and can follow instructions her memory is poor and she needs constant redirection. She has the chair alarm under her right now. Her NG tube was dcd this morning and she has been eating and drinking small amounts. Extensive oral care was done this morning and her dentures were removed and cleaned. A new IV was started in her right upper arm and has been working well throughout the day. Her family has been here on and off today and while her daughter is helpful, her partner argues with her and gets her more aggitated, they are out eating now. She is medical status and waiting a bed upstairs. She has her call light in reach but she calls out for help instead of using her light.
[2021-12-18 05:24] LABS: BASOPHILS ABSOLUTE AUTO 0.06 K/mm3 (0.00-0.23); BASOPHILS PERCENT AUTO 1 % (0-2); EOSINOPHILS ABSOLUTE AUTO 0.77 K/mm3 (0.00-0.68); EOSINOPHILS PERCENT AUTO 6 % (0-6); Hematocrit 31.9 % (33.0-51.0); Hemoglobin 10.5 g/dL (11.5-16.0); IMMATURE GRAN ABSOLUTE AUTO 0.05 K/mm3 (0.00-0.10); IMMATURE GRAN PERCENT AUTO 0 % (0-1); LYMPHOCYTES ABSOLUTE AUTO 2.14 K/mm3 (0.84-5.20); LYMPHOCYTES PERCENT AUTO 17 % (21-46); MONOCYTES ABSOLUTE AUTO 2.23 K/mm3 (0.16-1.47); MONOCYTES PERCENT AUTO 18 % (4-13); Mean Corpuscular HGB 31.2 pg (26.0-34.0); Mean Corpuscular HGB Conc 32.9 g/dL (31.5-36.5); Mean Corpuscular Volume 95 fL (80-100); NEUTROPHILS ABSOLUTE AUTO 7.17 K/mm3 (1.96-9.15); NEUTROPHILS PERCENT AUTO 58 % (41-73); Platelet Count 106 K/mm3 (150-400); RDW Coefficient Variation 15.5 % (11.7-14.2); RDW Standard Deviation 52.5 fL (35.1-46.3); Red Blood Cell Count 3.37 M/mm3 (3.80-5.20); White Blood Cell Count 12.42 K/mm3 (4.00-11.30)
--- NOTE | 2021-12-18 05:43 | NUR ---
SHIFT SUMMARY PT A&0 X2. PT IS CONFUSED ON WHERE SHE IS AND CONTINUES TO TRY TO GET OUT OF BED. EMILIE VEST PLACED. PT IS NOT ON TELE. VSS. PT HAS ZAYAS CATHETER DRAINING TO GRAVITY. TOTAL URINE OUPUT IS 625 ML. BED BATH, CATHETER CARE, AND FULL LINEN CHANGE COMPLETED AT BEGINNING OF SHIFT. PT TOLERATED ACTIVITY FAIR ALTHOUGH WAS CONFUSED AND CONTINUED ASKING IF SHE "COULD GET UP". PT REPOSITIONED AND HOB ELEVATED. PT WAS TURNED Q2 ORDERED. PT TOLERATED TURNS AND REPOSITIONING FAIRLY. PT HAS IV RIGHT UPPER ARM; IV IS PATENT AND FLUSHES WELL. DRESSING IS DRY AND INTACT. SANDOSTATIN INFUSING AT RATE PER EMAR. POWERGLIDE IN LEFT UPPER ARM; FLUSHES WELL AND DRESSING IS INTACT. BED IS IN LOWEST POSITION, SIDE RAILS ARE UP, AND CALL LIGHT IS WITHIN REACH.
[2021-12-18 05:55] LABS: Alanine Aminotransfer (ALT/SGP 56 U/L (12-78); Albumin, Blood 2.1 g/dL (3.4-5.0); Albumin/Globulin Ratio 0.6 (0.8-1.8); Alk Phos 55 U/L (50-136); Anion Gap 5 mmol/L (6-16); Aspartate Aminotrans (AST/SGOT 65 U/L (12-37); Blood Urea Nitrogen 9 mg/dL (8-24); Bun/Creatinine Ratio 11.1 (12.0-20.0); CO2, Blood 32 mmol/L (21-32); Calcium, Blood 8.2 mg/dL (8.5-10.1); Chloride, Blood 105 mmol/L (98-108); Creatinine, Blood 0.81 mg/dL (0.40-1.00); Globulin, Blood 3.6 g/dL (2.2-4.0); Glomerular Filtration Rate >60 (60-); Glucose, Blood 115 mg/dL (70-99); Magnesium, Blood 1.4 mg/dL (1.6-2.4); Potassium, Blood 3.4 mmol/L (3.5-5.5); Sodium, Blood 142 mmol/L (136-145); Total Protein, Blood 5.7 g/dL (6.4-8.2)
--- NOTE | 2021-12-18 17:44 | NUR ---
SHIFT SUMMARY; ASSUMED CARE AT 0700. ALERT AND ORIENTED X2. EMILIE VEST IN PLACE. DIFFICULT TO REDIRECT. ZAYAS IN PLACE DRAINING NIKHIL CLEAR URINE. DID NOT TAKE AM MEDS, ATTEMPTED BUT SPIT OUT AND COULD NOT FOLLOW DIRECTIONS TO SWALLOW, ATTEMPED APPLESAUCE, SPIT OUT ALSO. SPEECH EVAL ORDERED. SEVERAL SMEAR BM DURING SHIFT IN ATTENDS. ASSISTED TO BEDSIDE COMMODE IN AFTERNOON BY CEO NA AND PT. LARGE HARD BOWEL MOVEMENT. VSS, 3L 02 VIA NC WHICH IS HOME O2 BASELINE. PG TO UPPER LEFT ARM IN PLACE. REPORT GIVEN TO ALEXA TOM ON MEDICAL FLOOR TO ASSUME CARE FOR IN HOUSE TRANSFER.
--- NOTE | 2021-12-18 19:15 | NUR ---
PT ARRIVED TO ROOM 329 FROM PCU AT APPOX 1740 AND SETTLED IN TO BED. RESTRAINTS REAPPLIED AND CALL LIGHT PUT WITHIN REACH. NO REPORTS OF PAIN OR NAUSEA. IMMEDIATELY FELL ASLEEP AND HAS BEEN SLEEPING SINCE ARRIVAL TO FLOOR.
[2021-12-19 04:48] LABS: Hematocrit 33.4 % (33.0-51.0); Hemoglobin 10.9 g/dL (11.5-16.0); Mean Corpuscular HGB Conc 32.6 g/dL (31.5-36.5); Mean Corpuscular Volume 95 fL (80-100); Mean Platelet Volume 10.6 fL (9.1-12.4); Platelet Count 150 K/mm3 (150-400); RDW Coefficient Variation 15.8 % (11.7-14.2); RDW Standard Deviation 53.1 fL (35.1-46.3); Red Blood Cell Count 3.52 M/mm3 (3.80-5.20); White Blood Cell Count 10.35 K/mm3 (4.00-11.30)
--- NOTE | 2021-12-19 05:13 | NUR ---
Patient with VSS on RA overnight. Restraint vest in place overnight. Patient calm, sleeping most of the night. A&O x1. Johnson patent with clear dk yellow urine. Patient able to take her HS meds with sips of water. Skin inspection reveals no acute skin issues.
[2021-12-19 05:32] LABS: Alanine Aminotransfer (ALT/SGP 56 U/L (12-78); Albumin, Blood 2.1 g/dL (3.4-5.0); Albumin/Globulin Ratio 0.5 (0.8-1.8); Alk Phos 57 U/L (50-136); Anion Gap 7 mmol/L (6-16); Aspartate Aminotrans (AST/SGOT 66 U/L (12-37); Blood Urea Nitrogen 8 mg/dL (8-24); Bun/Creatinine Ratio 11.4 (12.0-20.0); CO2, Blood 31 mmol/L (21-32); Calcium, Blood 8.3 mg/dL (8.5-10.1); Chloride, Blood 103 mmol/L (98-108); Globulin, Blood 4.1 g/dL (2.2-4.0); Glomerular Filtration Rate >60 (60-); Glucose, Blood 52 mg/dL (70-99); Magnesium, Blood 1.9 mg/dL (1.6-2.4); Phosphorus, Blood 2.7 mg/dL (2.5-4.9); Potassium, Blood 2.8 mmol/L (3.5-5.5); Sodium, Blood 141 mmol/L (136-145); Total Protein, Blood 6.2 g/dL (6.4-8.2)
--- NOTE | 2021-12-20 04:59 | NUR ---
Patient with VSS on O2/@l overnight. Sheeba DUCKWORTH. Urinating QS. Alert to self and situation. Able to swallow pills whole with water. No acute skin issues noted. patient continues to clear mentally. Able to follow commands. Hold conversation. Continue plan of care.
[2021-12-20 05:08] LABS: Hemoglobin 9.4 g/dL (11.5-16.0); Mean Corpuscular HGB Conc 33.6 g/dL (31.5-36.5); Mean Corpuscular Volume 92 fL (80-100); Mean Platelet Volume 10.7 fL (9.1-12.4); NRBC ABSOLUTE 0.04 K/mm3 (0.00-0.02); NRBC Auto 0.4 /100 WBC (0.0-0.2); Platelet Count 97 K/mm3 (150-400); RDW Coefficient Variation 15.7 % (11.7-14.2); RDW Standard Deviation 51.4 fL (35.1-46.3); Red Blood Cell Count 3.03 M/mm3 (3.80-5.20); White Blood Cell Count 10.13 K/mm3 (4.00-11.30)
[2021-12-20 05:33] LABS: Anion Gap 5 mmol/L (6-16); Blood Urea Nitrogen 10 mg/dL (8-24); Bun/Creatinine Ratio 12.1 (12.0-20.0); CO2, Blood 30 mmol/L (21-32); Calcium, Blood 7.8 mg/dL (8.5-10.1); Chloride, Blood 107 mmol/L (98-108); Creatinine, Blood 0.83 mg/dL (0.40-1.00); Glomerular Filtration Rate >60 (60-); Glucose, Blood 141 mg/dL (70-99); Potassium, Blood 3.3 mmol/L (3.5-5.5); Sodium, Blood 142 mmol/L (136-145)
--- NOTE | 2021-12-20 17:32 | NUR ---
DAY SHIFT SUMMARY PT WAS ADMITTED FOR N/V RELATED TO ENCEPHALOPATHY, SHE ALSO HAS INCREASE AMMONIA LEVELS. PT TAKES MEDICATIONS WHOLE WITH WATER. PT IS A ONE PERSON ASSIST TO THE BEDSIDE COMMODE. ATTENDS ARE CHANGED PRN. PT HAS THE BED ALARM ACTIVE. PT ATTEMPTS TO LEAVE THE BED INDEPENDENTLY, REMIND HER TO USE THE CALL LIGHT TO ASK FOR ASSISTANCE. PT CAN BE CONFUSED AT TIMES. PT OBEYS COMMANDS AND CAN HOLD A CONVERSATION. PT HAS A BOYFRIEND NAMED ARSLAN THAT VISITS. PT HAD OTHER FAMILY VISIT TODAY, TOO. PT IS A DIABETIC, ACHS. PT IS ON A NC 2 L. WILL CONTINUE TO ASSESS AND MONITOR FOR THE REMAINDER OF THE SHIFT UNTIL NOC SHIFT ARRIVES.
--- NOTE | 2021-12-21 04:31 | NUR ---
Patient with low grade temp over night. Home O2 on at 2L /NC. All other VSS. Paitent with several episodes of vomiting in the night. Night doctor paged for medications. Zofran administered with little relief. No signs of blood in the vomit. Patient up with SBA to BSC to void and stool. Patient with 3 loose stools secondary to lactulose admin. Patient continues to be confused. She is awake and alert but she makes little sense when conversing. Able to make needs known.
[2021-12-21 05:24] LABS: Hematocrit 31.9 % (33.0-51.0); Hemoglobin 10.3 g/dL (11.5-16.0); Mean Corpuscular HGB 31.2 pg (26.0-34.0); Mean Corpuscular HGB Conc 32.3 g/dL (31.5-36.5); Mean Platelet Volume 10.6 fL (9.1-12.4); Platelet Count 135 K/mm3 (150-400); RDW Coefficient Variation 16.3 % (11.7-14.2); RDW Standard Deviation 55.6 fL (35.1-46.3); White Blood Cell Count 13.14 K/mm3 (4.00-11.30)
[2021-12-21 05:26] LABS: Mean Corpuscular Volume 97 fL (80-100)
[2021-12-21 05:45] LABS: Anion Gap 7 mmol/L (6-16); Blood Urea Nitrogen 9 mg/dL (8-24); CO2, Blood 27 mmol/L (21-32); Calcium, Blood 7.9 mg/dL (8.5-10.1); Chloride, Blood 109 mmol/L (98-108); Creatinine, Blood 0.82 mg/dL (0.40-1.00); Glomerular Filtration Rate >60 (60-); Glucose, Blood 88 mg/dL (70-99); Potassium, Blood 3.4 mmol/L (3.5-5.5); Sodium, Blood 143 mmol/L (136-145)
--- NOTE | 2021-12-21 18:53 | NUR ---
PT ALERT, ORIENTED TO PERSON AND YEAR AND KNOWS SHES AT THE HOSPITAL. PT HAD FEW EPISODES OF VOMITING TODAY, BUT SO FAR HAS TOLERATED EATING DINNER. IV ACCESS WAS LOST THIS AFTERNOON. POWERGLIDE ACCESS WAS ATTEMPTED, BUT UNSUCCESSFUL. PT HAD MULTIPLE LOOSE BM'S TODAY WITH 1 PERSON ASSIST TO BSC. TELEMETRY SHOWS PT TO BE SINUS RHTYHM. VITALS HAVE REMAINED STABLE.
--- NOTE | 2021-12-22 16:28 | NUR ---
SHIFT SUMMARY: PT. IS A&0X4, VITALS ARE STABLE, AND FAMILY VISITED BEDSIDE. DAUGHTER REQUESTED THAT SHE GETS UPDATES BECAUSE SHE IS THE NEXT IF KIN. PHONE NUMBER [phone]. PT. C/O ITCHING AND DISCHARGE IN HER MARCEL AREA, AND STATED THAT SHE FREQUENTLY GETS YEAST INFECTIONS WHEN ON ANTIBITOTICS. PT. STATES, "IT FEELS LIKE A YEAST INFECTION". SHE C/O IRRITATION IN HER MOUTH THAT MAKES HER THINK SHE IS GETTING ORAL THRUSH. NOTIFIED, AND PT. MEDICATED PEWR EMAR. PT. HAS A BED ALARM AND DOES NOT CALL APPROPRIATLEY WHEN NEEDING TO GET UP TO USE THE RESTROOM. PT. AMBULATES 1 PERSON W/ FWW TO BATHROOM. SHE HAS BEEN HAVING LOOSE STOOLS.
--- NOTE | 2021-12-23 06:09 | NUR ---
SHIFT SUMMARY PATIENT RESTED ON AND OFF THROUGHOUT THE NIGHT, UP MULTIPLE TIMES TO THE BATHROOM WITH LOOSE STOOLS D/T LACTULOSE, SBA TO THE RESTROOM, A&O X4, DENIES SHORTNESS OF BREATH, REPORTING PAIN TO HER ABDOMEN REQUESTING HER AT HOME DOSE OF PAIN MEDICATION, STATES SHE TAKES NORCO AND TIZANADINE AT HOME, EDUCATION PROVIDED TO PATIENT ABOUT THE DOCTORS PLAN OF CARE, PATIENT VERBALIZED UNDERSTANDING AND STATED HER PAIN IS TOLERABLE AT THIS TIME AND SHE WILL SPEAK WITH THE DOCTOR IN THE AM, DENIES N&V
[2021-12-23 08:18] LABS: Hematocrit 28.3 % (33.0-51.0); Hemoglobin 9.3 g/dL (11.5-16.0); Mean Corpuscular HGB Conc 32.9 g/dL (31.5-36.5); Mean Corpuscular Volume 94 fL (80-100); Mean Platelet Volume 10.8 fL (9.1-12.4); Platelet Count 132 K/mm3 (150-400); RDW Coefficient Variation 16.7 % (11.7-14.2); RDW Standard Deviation 55.5 fL (35.1-46.3); White Blood Cell Count 10.79 K/mm3 (4.00-11.30)
[2021-12-23 08:36] LABS: Anion Gap 4 mmol/L (6-16); Blood Urea Nitrogen 14 mg/dL (8-24); Bun/Creatinine Ratio 18.1 (12.0-20.0); CO2, Blood 26 mmol/L (21-32); Calcium, Blood 7.9 mg/dL (8.5-10.1); Chloride, Blood 112 mmol/L (98-108); Creatinine, Blood 0.77 mg/dL (0.40-1.00); Glomerular Filtration Rate >60 (60-); Glucose, Blood 95 mg/dL (70-99); Potassium, Blood 3.5 mmol/L (3.5-5.5); Sodium, Blood 142 mmol/L (136-145)
--- NOTE | 2021-12-23 18:37 | NUR ---
SHIFT SUMMARY; PATIENT MET WITH RN MENTAL HEALTH ANDRZEJ RIVERO TODAY. SHE IS CHANGED TO A REGULAR DIET BY MD PATIENT DOES NOT LIKE THE DIABETIC DIET. ORDER IS FOR NO SUGAR PACKETS AND ALSO NO ADDITIONAL SUGAR FOODS. PATIENT IS UP TO BATHROOM USING FWW WITHOUT ASSIST SHE IS AO X 4 TODAY WITH OCCASIONAL LAPSES OF MEMORY. OT IS CHANGING HER TO HOME WITH [employer] REC[facility]MEND[facility] AND PT WILL DECIDE TOMMOROW IF HOME WITH HOME HEALTH. HER CBG ARE LOW THAT SHE DOES NOT REQUIRE ANY ADDITIONAL INSULIN. SHE TAKES HER PILLS WHOLE WITH WATER WITHOUT DIFF. WILL CONTINUE TO MONITOR THIS PATIENT CLOSELY UNTIIL HAND OFF AND REPORT TO ONCOMING NOC SHIFT RN
[2021-12-24 05:33] LABS: Triglycerides 86 mg/dL (30-160)
--- NOTE | 2021-12-24 05:41 | NUR ---
SHIFT SUMMARY PATIENT HAD DIFFICULTY SLEEPING THIS SHIFT, PRN TIZANADINE OBTAINED TO HELP PATIENT SLEEP AND RELAX BACK SPASMS HOWEVER DO TO THE PATIENTS N&V SHE DID NOT TAKE MEDICATION, PATIENT VOMITTED APPROX 3 TIMES THIS SHIFT, CHANGED IV ZOFRAN TO PO ZOFRAN WITH LITTLE RELIEF, A&O 3-4, PATIENT UP TO THE BATHROOM MULTIPLE TIMES THIS SHIFT
--- NOTE | 2021-12-24 18:02 | NUR ---
SHIFT SUMMARY PT IS AOX4. PT IS COOPERATIVE AND FOLLOWS DIRECTIONS. I HELD PT'S SPIRONALACTONE THIS AM DUE TO LOW BP, I ALSO HELD PROPANOLOL THIS EVENING DUE TO LOW BP. TOOK LACTULOSE TODAY WITH SYRINGE AND ICE CREAM. PT IS INDEPENDENT TO THE RESTROOM. PT IS EXPERIENCING N/V, TREATED WITH ZOFRAN PO PER EMAR. PT IS HAVING BROWN, LIQUID STOOLS. PLAN FOR THIS PT IS A SNIF. PT'S DAUGHTER WAS HERE TODAY AND SPOKE WITH THE DOCTOR ABOUT PROGNOSIS AND PLAN. WILL CONTINUE TO MONITOR AND ASSESS PT UNTIL NOC SHIFT ARRIVES.
--- NOTE | 2021-12-25 04:37 | NUR ---
SHIFT SUMMARY ADMITTED FOR N/V. FULL CODE. PLAN IS FOR PLACEMENT VS. HOME W/HH. ACHS CHEMSTICKS. LACTULOSE IS SCHEDULED, HX OF CIRRHOSIS. RA. A&O X4. REGULAR DIET. INDEPENDENT IN ROOM. HOME HUMIRA SHOT GIVEN THIS SHIFT.
[2021-12-25 06:27] LABS: Anion Gap 7 mmol/L (6-16); Blood Urea Nitrogen 18 mg/dL (8-24); Bun/Creatinine Ratio 22.1 (12.0-20.0); CO2, Blood 25 mmol/L (21-32); Chloride, Blood 107 mmol/L (98-108); Creatinine, Blood 0.81 mg/dL (0.40-1.00); Glomerular Filtration Rate >60 (60-); Glucose, Blood 136 mg/dL (70-99); Potassium, Blood 3.8 mmol/L (3.5-5.5); Sodium, Blood 139 mmol/L (136-145)
[2021-12-25] MEDS ORDERED: Enulose10 GM/15 M PO (11:27)
[2021-12-25] MEDS ORDERED: ONDA4 PO ×2 (11:28)
[2021-12-25] MEDS ORDERED: RIFA550T2 PO ×3 (11:30→11:32)
[2021-12-25] MEDS ORDERED: PROP10 PO ×2 (11:30)
[2021-12-25] MEDS ORDERED: SPIR25 PO ×2 (11:32)
[2021-12-25] MEDS ORDERED: DELTASONE20 MG PO ×2 (11:37)
--- NOTE | 2021-12-25 14:32 | NUR ---
DISCHARGE SUMMARY PATIENT IS ALERT AND ORIENTED X3-4. PATIENT HAS HAD NO ACUTE EVENTS THIS SHIFT. VITAL SIGNS REVIEWED. PATIENT HAS HAD NO COMPLAINTS OF PAIN, NAUSEA, VOMITTING OR SOB THIS SHIFT. PATIENT WAS WHEELED OUT BY COLLABORATIVE TEACHER AND PATIENTS FAMILY.
== END 2021-12-25 14:33 | disposition home health service (06) | DRG 441 ==
LOC: ER 00:11 → ICUE 04:57 → ERHOLD 04:57 → PCU 04:57 → ICUE 11:17 → MEDS 11:18 → ICUE 12-15 02:20 → PCU 12-15 10:02 → MEDS 12-15 15:50
PROVIDERS: Internal Medicine; Student in an Organized Health Care Education/Training Program; ADMIT Internal Medicine
DX: K72.90 Hepatic failure, unspecified without coma (principal); K29.71 Gastritis, unspecified, with bleeding; J96.21 Acute and chronic respiratory failure with hypoxia; I85.11 Secondary esophageal varices with bleeding; N17.9 Acute kidney failure, unspecified; K50.90 Crohn's disease, unspecified, without complications; Z20.822 Contact with and (suspected) exposure to COVID-19; E87.6 Hypokalemia; E86.0 Dehydration; K74.69 Other cirrhosis of liver; R11.2 Nausea with vomiting, unspecified; E11.65 Type 2 diabetes mellitus with hyperglycemia; Z78.1 Physical restraint status; R94.31 Abnormal electrocardiogram [ECG] [EKG]; I10 Essential (primary) hypertension; K75.81 Nonalcoholic steatohepatitis (NASH); J44.9 Chronic obstructive pulmonary disease, unspecified; F17.210 Nicotine dependence, cigarettes, uncomplicated; Z88.1 Allergy status to other antibiotic agents; Z88.2 Allergy status to sulfonamides; Z88.6 Allergy status to analgesic agent; Z88.5 Allergy status to narcotic agent; Z90.49 Acquired absence of other specified parts of digestive tract; Z88.8 Allergy status to other drugs, medicaments and biological substances; Z79.899 Other long term (current) drug therapy; Z79.84 Long term (current) use of oral hypoglycemic drugs; Z90.710 Acquired absence of both cervix and uterus; Z98.890 Other specified postprocedural states
CPT/HCPCS: 0241U; 36415; 51703; 70450; 71045; 74177; 80048; 80053; 82105; 82140; 82248; 82947; 83690; 83735; 84100; 84478; 85025; 85027; 85610; 86381; 87493; 92526; 92610; 93005; 93010; 94640; 94664; 94760; 94762; 96365-59; 96366; 96367; 96375; 96376; 97110; 97116; 97162; 97166; 97530; 97535; 99285-25; A9270; C1751; C9113; G0378; J0696; J0744; J0780; J1815; J2060; J2354; J2405; J2550; J2765; J3411; J3475; J3480; J7030; J7040; J7042; J7060; J7120; Q9967

== ENCOUNTER 2021-12-27 13:16 | Observation (INO) | payer MEDICARE, OTHER ==
[~2021-12-27] VITALS: Ht 160 cm; Wt 83.7 kg
[~2021-12-27 13:16] MED LIST changes: +DELTASONE20 MG PO; +Enulose10 GM/15 M PO; +ONDA4 PO; +PROP10 PO; +RIFA550T2 PO; +SPIR25 PO
[2021-12-27 13:58] LABS: BASOPHILS ABSOLUTE AUTO 0.04 K/mm3 (0.00-0.23); BASOPHILS PERCENT AUTO 0 % (0-2); EOSINOPHILS ABSOLUTE AUTO 0.42 K/mm3 (0.00-0.68); EOSINOPHILS PERCENT AUTO 4 % (0-6); Hematocrit 34.9 % (33.0-51.0); Hemoglobin 11.3 g/dL (11.5-16.0); IMMATURE GRAN ABSOLUTE AUTO 0.06 K/mm3 (0.00-0.10); IMMATURE GRAN PERCENT AUTO 1 % (0-1); LYMPHOCYTES ABSOLUTE AUTO 2.02 K/mm3 (0.84-5.20); LYMPHOCYTES PERCENT AUTO 18 % (21-46); MONOCYTES ABSOLUTE AUTO 1.12 K/mm3 (0.16-1.47); MONOCYTES PERCENT AUTO 10 % (4-13); Mean Corpuscular HGB Conc 32.4 g/dL (31.5-36.5); Mean Corpuscular Volume 96 fL (80-100); Mean Platelet Volume 10.9 fL (9.1-12.4); NEUTROPHILS ABSOLUTE AUTO 7.76 K/mm3 (1.96-9.15); NEUTROPHILS PERCENT AUTO 68 % (41-73); Platelet Count 159 K/mm3 (150-400); RDW Coefficient Variation 17.8 % (11.7-14.2); RDW Standard Deviation 60.8 fL (35.1-46.3); Red Blood Cell Count 3.64 M/mm3 (3.80-5.20); White Blood Cell Count 11.42 K/mm3 (4.00-11.30)
[2021-12-27 14:16] LABS: Albumin, Blood 2.1 g/dL (3.4-5.0); Albumin/Globulin Ratio 0.5 (0.8-1.8); Bilirubin, Total 1.5 mg/dL (0.1-1.0); Calcium, Blood 8.8 mg/dL (8.5-10.1); Globulin, Blood 4.2 g/dL (2.2-4.0); Potassium, Blood 4.5 mmol/L (3.5-5.5); Total Protein, Blood 6.3 g/dL (6.4-8.2)
[2021-12-27 15:06] LABS: International Normalized Ratio 1.34; Prothrombin Time Results 13.8 Sec (9.7-11.5)
--- NOTE | 2021-12-27 18:44 | NUR ---
SHIFT SUMMARY- PT ADMITTED TO MED FLOOR. PT A&O X3. PT WITH FRIEND AT BEDSIDE. PT IN BED WITH SIDE RAILS AND CALL LIGHT AT HAND.
--- NOTE | 2021-12-27 19:35 | NUR ---
ADMISSION: PATIENT WAS IN ROOM WHEN REPORT WAS RECIEVED AT BEDSIDE. PATIENT HAD REFUSED REPEAT LACTIC AND IT IS NOTED THAT BLOOD GLUCOSE AT 79 AT 1428. IN ER 1L BOLUS OF NS AND PROTONIX WERE GIVEN. NO REPEAT BG WAS DRAWN. BG IS 78 AT 1918 SNACK IS GIVEN OF PEANUT BUTTER GRAMS AND PUDDING ARE GIVEN 50% EATEN. RECHECK @ 1925 IS 84. PATIENT CONTINUES TO EAT SNACK AND MILK IS GIVEN. PATIENT AGREED TO HAVE REPEAT LACTIC DRAWN. PATIENT IS ORIENTED TO ROOM AND CALL SANCHEZ. B ED ALARM IS ON FOR SAFETY. PATIENT WAS ASSISTED TO BSC WITH NO DIZZINESS BP IS 133/118.
[2021-12-27] MEDS ORDERED: ESCI20 PO ×2 (20:15)
[2021-12-27] MEDS ORDERED: Simvastatin20 MG PO ×2 (20:15)
[2021-12-27] MEDS ORDERED: TRAZ100 PO ×2 (20:16)
[2021-12-27] MEDS ORDERED: GLIP5 PO ×2 (20:17)
[2021-12-27] MEDS ORDERED: FLUT.05NI ×2 (20:18)
[2021-12-27] MEDS ORDERED: Phenergan25 M1 PO ×2 (20:19)
[2021-12-27] MEDS ORDERED: LISI20 PO ×2 (20:22)
[2021-12-27] MEDS ORDERED: BASAGLAR K100 UNIT/8 SC ×2 (20:23)
[2021-12-27] MEDS ORDERED: OXYC10TA19 PO ×2 (20:25)
[2021-12-27] MEDS ORDERED: ZANAFLEX PO ×2 (20:25)
[2021-12-27] MEDS ORDERED: ERYT.5TO BOTHEYES ×2 (20:36)
[2021-12-27] MEDS ORDERED: TRELEGY ELLIPT1 EAC1 INH ×2 (20:37)
[2021-12-27] MEDS ORDERED: SPIRONOLACTONE25 MG PO ×2 (20:39)
[2021-12-27] MEDS ORDERED: PRED20 PO ×2 (20:40)
[2021-12-27 21:08] LABS: Source, Urine Clean Catch
[2021-12-27 21:20] LABS: Bilirubin, Urine Neg (Neg); Blood, Urine 1+ (Neg); Glucose Qualitative, Urine Neg (Neg); Ketones, Urine Neg (Neg); Leukocyte Esterase, Urine 1+ (Neg); Nitrite, Urine Neg (Neg); Protein, Urine Neg (Neg); Specific Gravity, Urine 1.015 (1.003-1.022); Urobilinogen, Urine NORM (Normal)
[2021-12-27 21:33] LABS: Appearance, Urine Hazy (Clear); Color, Urine Yellow (P-Yellow)
[2021-12-27 21:34] LABS: Bacteria Few /hpf; Red Blood Cells, Urine 0-2 /hpf (0-2); Squamous Epithelial Cells Many /hpf (Few); Yeast/Fungi Urine Mod /hpf
--- NOTE | 2021-12-27 22:44 | NUR ---
CARDIAC: BP IS CONSISTANTLY LOW, AFTER BOLUS AND MIDODRINE. TELI CALLED TO REPORT A PROLONGED QTC OF 0.50 AND BRADICARDIC AT TIMES. WHICH IS NOT NEW FOR PATIENT BG IS 93 AFTER SNACKS AND JUICE PER DR CHEEMA ORDER. DR STEVEN IS CALLED AND UPDATED ON ABOVE INFORMATION. ORDER TO PLACE LILY HOSE AND REPEAT BP. THIS DID NOT INPROVE BP AND DR JULIO WAS UPDATED AGAIN. ORDERS TO GIVE ALBUMIN AND RECHECK BP AFTER ADMIN.
--- NOTE | 2021-12-28 00:26 | NUR ---
CARDIAC: BP IS 80/55 HR BRADICARDIC IN THE 50'S LOW 46. PATIENT REMAINS ASYMPTOMATIC.CALL IS PLACED TO DR GOODRICH, AWAITING CALL BACK.
--- NOTE | 2021-12-28 01:30 | NUR ---
CARDIAC: DR GOODRICH WAS NPTIFIED OF BP, PATIENT REMAINS ASYMPTOMATIC. ORDER OBTAINED TO NOT CALL UNLESS MAP IS BELOW 60 AND PATIENT REMAINS ASYMPTOMATIC.
--- NOTE | 2021-12-28 06:18 | NUR ---
SHIFT SUMMARY: PATIENT SLEPT WELL. BP THIS AM WAS 107/54, BLOOD GLUCOSE WAS 75. SNACK WAS GIVEN AND PATIENT ATE A FEW BITES OF GRAM CRACKER AND PEANUT BUTTER. APPLE JUICE WAS ALSO GIVEN. PATIENT WAS ASSISTED TO THE BSC, NO DIZZINESS REPORTED. BED ALARM IS ON FOR SAFETY.
[2021-12-28 09:46] LABS: BASOPHILS ABSOLUTE AUTO 0.07 K/mm3 (0.00-0.23); BASOPHILS PERCENT AUTO 1 % (0-2); EOSINOPHILS ABSOLUTE AUTO 0.46 K/mm3 (0.00-0.68); EOSINOPHILS PERCENT AUTO 4 % (0-6); Hematocrit 31.3 % (33.0-51.0); Hemoglobin 10.2 g/dL (11.5-16.0); IMMATURE GRAN ABSOLUTE AUTO 0.07 K/mm3 (0.00-0.10); IMMATURE GRAN PERCENT AUTO 1 % (0-1); LYMPHOCYTES ABSOLUTE AUTO 1.59 K/mm3 (0.84-5.20); LYMPHOCYTES PERCENT AUTO 14 % (21-46); MONOCYTES PERCENT AUTO 10 % (4-13); Mean Corpuscular HGB 31.5 pg (26.0-34.0); Mean Corpuscular HGB Conc 32.6 g/dL (31.5-36.5); Mean Corpuscular Volume 97 fL (80-100); Mean Platelet Volume 10.7 fL (9.1-12.4); NEUTROPHILS PERCENT AUTO 71 % (41-73); Platelet Count 147 K/mm3 (150-400); RDW Coefficient Variation 17.9 % (11.7-14.2); RDW Standard Deviation 61.5 fL (35.1-46.3); Red Blood Cell Count 3.24 M/mm3 (3.80-5.20); White Blood Cell Count 11.79 K/mm3 (4.00-11.30)
[2021-12-28 10:10] LABS: Albumin, Blood 2.4 g/dL (3.4-5.0); Anion Gap 6 mmol/L (6-16); Blood Urea Nitrogen 21 mg/dL (8-24); Bun/Creatinine Ratio 20.2 (12.0-20.0); CO2, Blood 25 mmol/L (21-32); Calcium, Blood 8.3 mg/dL (8.5-10.1); Chloride, Blood 108 mmol/L (98-108); Creatinine, Blood 1.04 mg/dL (0.40-1.00); Glomerular Filtration Rate 53 (60-); Glucose, Blood 82 mg/dL (70-99); Phosphorus, Blood 3.4 mg/dL (2.5-4.9); Potassium, Blood 4.2 mmol/L (3.5-5.5); Sodium, Blood 139 mmol/L (136-145)
--- NOTE | 2021-12-28 17:35 | NUR ---
SHIFT SUMMARY PT ADMITTED FOR HYPOTENSION. PT BP HAS BEEN IMPROVING SINCE ADMINISTRATION OF MIDODRINE TODAY. PT IS AOX4. 1 ASSIST TO THE BEDSIDE COMMODE. MIDODRINE IS ADMINISTERED IF SYSTOLIC IS BELOW 130. PT'S BOYFRIEND HAS BEEN IN AND OUT ALL DAY. PT IS COOPERATIVE AND FOLLOWS COMMANDS. PT IS ON TELE. PT DENIES ANY PAIN AT THIS TIME. PT IS ABLE TO POSITION HERSELF IN BED. PT IS THOUGHT TO DISCHARGE TONIGHT OR TOMORROW, AWAITING ORDERS. WILL CONTINUE TO MONITOR AND ASSESS UNTIL NOC SHIFT ARRIVES.
--- NOTE | 2021-12-28 18:05 | NUR ---
I HAVE READ AND REVIEWED THE RN GASTROENTEROLOGY DOCUMENTATION FOR THIS PATIENT INCLUDING THE SHIFT ASSESSMENT. I AM IN AGGREEMENT WITH HER DOCUMENTATION
--- NOTE | 2021-12-29 06:32 | NUR ---
SHIFT SUMMARY: PATIENT HAS SLEPT WELL, VSS. PATIENT REPORTS NO DIZZINESS WHEN UP OOB. NO ACUTE CHANGES THIS SHIFT.
[2021-12-29] MEDS ORDERED: VISBIOME 112.51 EACH PO ×2 (09:59)
[2021-12-29] MEDS ORDERED: ASCO500 PO ×2 (10:00)
--- NOTE | 2021-12-29 18:24 | NUR ---
PATIENT WAS DISHARGED TO HOME TODAY. BOYFRIEND TAKES HER HOME. RX MEDICATIONS WERE TO BE FAXED TO [facility]. FAX REMAINED BUSY SO COPY OF MEDICATION DISCHARGE ORDERS PROVIDED TO PATIENT AND SHE WILL TAKE IT TO PHARMACY. THIS RN CALLED [facility] AND LET THEM KNOW THAT STILL COULD NOT FAX TO THERE MACHINE AND SHE WOULD BE BRINGING IN THE MED REC. SEISMOGRAPH CHIEF OK TO DO SO AND WILL CALL MED FLOOR IF ANY PROBLEMS.
== END 2021-12-29 13:10 | disposition home health service (06) ==
LOC: ER 13:16 → MEDS 17:48
PROVIDERS: Physician Assistant; ADMIT Family Medicine
DX: I95.9 Hypotension, unspecified (principal); J44.9 Chronic obstructive pulmonary disease, unspecified; K75.81 Nonalcoholic steatohepatitis (NASH); K74.69 Other cirrhosis of liver; E11.9 Type 2 diabetes mellitus without complications; I10 Essential (primary) hypertension; F17.210 Nicotine dependence, cigarettes, uncomplicated; D64.9 Anemia, unspecified; K21.9 Gastro-esophageal reflux disease without esophagitis; E72.20 Disorder of urea cycle metabolism, unspecified; E87.2 Acidosis; D72.829 Elevated white blood cell count, unspecified; R00.1 Bradycardia, unspecified; Z88.6 Allergy status to analgesic agent; Z88.1 Allergy status to other antibiotic agents; Z88.5 Allergy status to narcotic agent; Z88.2 Allergy status to sulfonamides; Z88.8 Allergy status to other drugs, medicaments and biological substances; Z91.09 Other allergy status, other than to drugs and biological substances; Z79.84 Long term (current) use of oral hypoglycemic drugs
CPT/HCPCS: 36415; 36416; 74177; 80053; 80069; 81001; 82140; 82533; 82947; 83605; 85025; 85610; 85730; 86850; 86900; 86901; 87086; 93005; 93010; 93306; 94640; 94760; 96361; 96374; 99285-25; A9270; C9113; J0696; J1815; J7030; J7120; J7512; P9046; Q9967

== ENCOUNTER 2022-01-31 21:24 | Inpatient (IN) | payer MEDICARE, OTHER ==
[~2022-01-31] VITALS: Ht 160 cm; Wt 72.6 kg
[~2022-01-31 21:24] MED LIST changes: +ASCO500 PO; +BASAGLAR K100 UNIT/8 SC; +ERYT.5TO BOTHEYES; +FLUT.05NI; +Phenergan25 M1 PO; +SPIRONOLACTONE25 MG PO; +VISBIOME 112.51 EACH PO; +ZANAFLEX PO
[2022-01-31 22:10] LABS: BASOPHILS ABSOLUTE AUTO 0.05 K/mm3 (0.00-0.23); BASOPHILS PERCENT AUTO 1 % (0-2); EOSINOPHILS ABSOLUTE AUTO 0.18 K/mm3 (0.00-0.68); EOSINOPHILS PERCENT AUTO 3 % (0-6); Hematocrit 39.3 % (33.0-51.0); Hemoglobin 12.9 g/dL (11.5-16.0); IMMATURE GRAN ABSOLUTE AUTO 0.03 K/mm3 (0.00-0.10); IMMATURE GRAN PERCENT AUTO 1 % (0-1); LYMPHOCYTES ABSOLUTE AUTO 1.71 K/mm3 (0.84-5.20); LYMPHOCYTES PERCENT AUTO 27 % (21-46); MONOCYTES ABSOLUTE AUTO 0.99 K/mm3 (0.16-1.47); MONOCYTES PERCENT AUTO 15 % (4-13); Mean Corpuscular HGB 31.9 pg (26.0-34.0); Mean Corpuscular HGB Conc 32.8 g/dL (31.5-36.5); Mean Corpuscular Volume 97 fL (80-100); NEUTROPHILS ABSOLUTE AUTO 3.45 K/mm3 (1.96-9.15); NEUTROPHILS PERCENT AUTO 54 % (41-73); Platelet Count 99 K/mm3 (150-400); RDW Coefficient Variation 15.7 % (11.7-14.2); RDW Standard Deviation 56.5 fL (35.1-46.3); Red Blood Cell Count 4.04 M/mm3 (3.80-5.20); White Blood Cell Count 6.41 K/mm3 (4.00-11.30)
[2022-01-31 22:18] LABS: Albumin, Blood 2.5 g/dL (3.4-5.0); Albumin/Globulin Ratio 0.7 (0.8-1.8); Bilirubin, Direct 0.6 mg/dL (0.0-0.3); Bilirubin, Indirect 0.7 mg/dL (0.1-0.7); Bilirubin, Total 1.3 mg/dL (0.1-1.0); Calcium, Blood 9.1 mg/dL (8.5-10.1); Creatinine, Blood 1.67 mg/dL (0.40-1.00); Globulin, Blood 3.8 g/dL (2.2-4.0); Magnesium, Blood 2.7 mg/dL (1.6-2.4); Potassium, Blood 3.3 mmol/L (3.5-5.5); Total Protein, Blood 6.3 g/dL (6.4-8.2)
[2022-01-31 22:54] LABS: Base Excess Venous 2.4 mmol/L; PCO2 Venous 43.7 mmHg (38-42); PO2 Venous 59.7 mmHg (38-42)
[2022-01-31 23:36] LABS: Influenza A, PCR NEGATIVE (NEGATIVE); Influenza B, PCR NEGATIVE (NEGATIVE); Resp Syncytial Virus, PCR NEGATIVE (NEGATIVE); SARS-Cov-2 (COVID-19) PCR, MMC NEGATIVE (NEGATIVE)
[2022-02-01 00:29] LABS: Source, Urine Clean Catch
[2022-02-01 00:33] LABS: Bilirubin, Urine Neg (Neg); Blood, Urine 3+ (Neg); Glucose Qualitative, Urine Neg (Neg); Ketones, Urine 1+ (Neg); Leukocyte Esterase, Urine 1+ (Neg); Nitrite, Urine Neg (Neg); Protein, Urine 1+ (Neg); Urobilinogen, Urine NORM (Normal)
[2022-02-01 00:41] LABS: Appearance, Urine Cloudy (Clear); Color, Urine Amber (P-Yellow)
[2022-02-01 00:42] LABS: Amorphous Mod (0-Heavy); Bacteria Many /hpf; Squamous Epithelial Cells Mod /hpf (Few)
--- NOTE | 2022-02-01 04:48 | NUR ---
PT ARRIVED AT THE FLOOR AT 0345. SHE IS VERY WEAK. COMPLAINS OF PAIN WHEN TURNING AND IS HAVING YELLOW LIQUID STOOLS. SHE CLAIMS THIS HAS BEEN AFREQUENT IN THE LAST WEEK ALONG WITH NAUSEA AND VOMITING. SHE IS CONFUSED AND DOES NOT USE THE CALL LIGHT BUT CALLS OUT. SHE KNOWS SHE IS IN THE HOSPITAL BUT FOLLOWS DIRECTIONS POORLY AND CANNOT STATE WHY SHE IS HERE. SHE ALSO STATED THE YEAR IS 1999. CALL LIGHT WITHIN REACH
[2022-02-01 05:34] LABS: BASOPHILS ABSOLUTE AUTO 0.07 K/mm3 (0.00-0.23); BASOPHILS PERCENT AUTO 1 % (0-2); EOSINOPHILS PERCENT AUTO 3 % (0-6); Hematocrit 39.4 % (33.0-51.0); Hemoglobin 12.5 g/dL (11.5-16.0); IMMATURE GRAN ABSOLUTE AUTO 0.01 K/mm3 (0.00-0.10); IMMATURE GRAN PERCENT AUTO 0 % (0-1); LYMPHOCYTES PERCENT AUTO 26 % (21-46); MONOCYTES ABSOLUTE AUTO 1.36 K/mm3 (0.16-1.47); MONOCYTES PERCENT AUTO 17 % (4-13); Mean Corpuscular HGB 31.5 pg (26.0-34.0); Mean Corpuscular HGB Conc 31.7 g/dL (31.5-36.5); Mean Corpuscular Volume 99 fL (80-100); Mean Platelet Volume 11.3 fL (9.1-12.4); NEUTROPHILS ABSOLUTE AUTO 4.22 K/mm3 (1.96-9.15); NEUTROPHILS PERCENT AUTO 53 % (41-73); Platelet Count 131 K/mm3 (150-400); RDW Coefficient Variation 15.9 % (11.7-14.2); RDW Standard Deviation 57.9 fL (35.1-46.3); Red Blood Cell Count 3.97 M/mm3 (3.80-5.20); White Blood Cell Count 7.96 K/mm3 (4.00-11.30)
[2022-02-01 06:13] LABS: Albumin, Blood 2.3 g/dL (3.4-5.0); Albumin/Globulin Ratio 0.6 (0.8-1.8); Bilirubin, Total 1.4 mg/dL (0.1-1.0); Bun/Creatinine Ratio 17.7 (12.0-20.0); Calcium, Blood 8.4 mg/dL (8.5-10.1); Creatinine, Blood 1.3 mg/dL (0.40-1.00); Globulin, Blood 3.9 g/dL (2.2-4.0); Potassium, Blood 3.6 mmol/L (3.5-5.5); Total Protein, Blood 6.2 g/dL (6.4-8.2)
[2022-02-01 11:28] LABS: C DIFFICILE DNA NEGATIVE (Negative)
--- NOTE | 2022-02-01 17:49 | NUR ---
DAYSHIFT SUMMARY Patient oriented to self, place, disoriented to time/situation. Lactulose given TID, multiple yellow liquid stools this shift. Ammonia level 91 admission now 73. PO intake this shift, CBGs <100, no SSI needed. Patient weak, OOB with staff assistance, transfer to [facility]. Patient easily distracted, difficulty following direction during transfers. IV fluids infusing. No other concerns at this time, will continue lactulose and monitor stools.
--- NOTE | 2022-02-01 22:56 | NUR ---
PT had begun wandering into other PT's room prior to HS meds but was redirectable so he was given new rx 5 mg zyprexa oral dis tab at HS as PRN. Less than 2 hours later he was wandering intrusively into other PT's rooms & was not redirectable , he refused to stop & had to have 2 staff physiscally escort him back to room. He also was attempting to push open locked door to special care unit. CAFETERIA CLERK Sinpu updated & he rx 5 mg iv haldol in 2 .5 mg doses twice, second dose 20 mins after first of PT still agitated.
--- NOTE | 2022-02-02 02:49 | NUR ---
pt HAD IV INFILTRATE LT ARM REMOVED SALINE LOCK & WRAPPED ARM ELEVATED TO DECREASE EDEMA. pt REPEATEDLY REFUSED iv RESTART. sHE HAS TELE MONITORING nsr & iv RX EVERY 48 HOURS. MD STEEL UPDATED & ORDER TO HAVE NO IV ACCESS BUT WILL REAPPROACH IN AM. HELD 0000 LACTULOSE DUE TO MULTIPLE LIQUID YELLOW STOOLS.
[2022-02-02 05:02] LABS: BASOPHILS ABSOLUTE AUTO 0.06 K/mm3 (0.00-0.23); BASOPHILS PERCENT AUTO 1 % (0-2); EOSINOPHILS ABSOLUTE AUTO 0.26 K/mm3 (0.00-0.68); EOSINOPHILS PERCENT AUTO 4 % (0-6); Hematocrit 36.6 % (33.0-51.0); IMMATURE GRAN ABSOLUTE AUTO 0.03 K/mm3 (0.00-0.10); IMMATURE GRAN PERCENT AUTO 0 % (0-1); LYMPHOCYTES ABSOLUTE AUTO 1.85 K/mm3 (0.84-5.20); LYMPHOCYTES PERCENT AUTO 27 % (21-46); MONOCYTES ABSOLUTE AUTO 1.17 K/mm3 (0.16-1.47); MONOCYTES PERCENT AUTO 17 % (4-13); Mean Corpuscular HGB 31.8 pg (26.0-34.0); Mean Corpuscular HGB Conc 32.8 g/dL (31.5-36.5); Mean Corpuscular Volume 97 fL (80-100); Mean Platelet Volume 10.9 fL (9.1-12.4); NEUTROPHILS ABSOLUTE AUTO 3.49 K/mm3 (1.96-9.15); NEUTROPHILS PERCENT AUTO 51 % (41-73); Platelet Count 96 K/mm3 (150-400); RDW Coefficient Variation 15.9 % (11.7-14.2); RDW Standard Deviation 56.6 fL (35.1-46.3); Red Blood Cell Count 3.77 M/mm3 (3.80-5.20); White Blood Cell Count 6.86 K/mm3 (4.00-11.30)
[2022-02-02 05:32] LABS: Albumin, Blood 2.3 g/dL (3.4-5.0); Albumin/Globulin Ratio 0.6 (0.8-1.8); Bilirubin, Total 1.6 mg/dL (0.1-1.0); Bun/Creatinine Ratio 21.1 (12.0-20.0); Calcium, Blood 8.7 mg/dL (8.5-10.1); Globulin, Blood 3.7 g/dL (2.2-4.0); Potassium, Blood 3.1 mmol/L (3.5-5.5)
--- NOTE | 2022-02-02 18:14 | NUR ---
SHIFT SUMMARY: PT A/O X 4 STANDBY ASSIST WITH WALKER AND GAIT BELT. PT HAS DONE WELL THROUGHOUT SHIFT. SHE IS GETTING UP TO BATHROOM WITH MINIMAL ASSIST, SHE IS PLEASANT AND COOPERATIVE WITH CARES. SHE HAS HAD 6 BM'S IN THE LAST 24 HOURS. SHE HAS HAD VISITORS IN HER ROOM THROUGHOUT THE DAY AND SHE IS OBSERVED INTERACTING WELL AND TALKING AND LAUGHING WITH VISITORS. PT DID EXPRESS CONCERNS WITH HER CARE AT HOME STATING SHE NEEDS A BATH AID TO COME TO HER HOUSE AND SHE IS WORRIED BECAUSE HER HOME HEALTH SERVICES WERE GOING TO END SOON. ADVISED SHE NEEDED TO REPORT HER CONCERNS TO HOME HEALTH AGENCY AND PCP FOR FURTHER RESOURCES ONCE HER HOME HEALTH SERVICES END. PT AND SPOUSE IN ROOM VU.
--- NOTE | 2022-02-03 06:09 | NUR ---
PT continues on tele monitor with NSR. She is gaining strenght with ability to tolerate seated shower & ambulate to bathroom multiple times with SBA & FWW. She had improved appetite & says she can taste food for the first time in 6 months or so. Skin care provided after shower with some improvement noted in excoriation. Tirtated lactulose for at least 4 bowel movements, has liquid yellow stools multiple times. PT on room air, has home oxygen available PRN. Has supportive Spouse. Pleasant & able to make needs known.
[2022-02-03 09:19] LABS: Bun/Creatinine Ratio 18.1 (12.0-20.0); Calcium, Blood 8.7 mg/dL (8.5-10.1); Creatinine, Blood 0.94 mg/dL (0.40-1.00); Potassium, Blood 3.4 mmol/L (3.5-5.5)
[2022-02-03] MEDS ORDERED: GUAI600T33 PO (11:59)
[2022-02-03] MEDS ORDERED: LEVO750 PO (12:01)
== END 2022-02-03 13:09 | disposition home health service (06) | DRG 442 ==
LOC: ER 21:24 → ERHOLD 02-01 01:13 → MEDS 02-01 03:20
PROVIDERS: Family Medicine; Internal Medicine; Student in an Organized Health Care Education/Training Program; ADMIT Internal Medicine
DX: K72.00 Acute and subacute hepatic failure without coma (principal); N39.0 Urinary tract infection, site not specified; N17.9 Acute kidney failure, unspecified; K50.90 Crohn's disease, unspecified, without complications; Z20.822 Contact with and (suspected) exposure to COVID-19; I95.9 Hypotension, unspecified; B96.1 Klebsiella pneumoniae [K. pneumoniae] as the cause of diseases classified elsewhere; K74.69 Other cirrhosis of liver; K75.81 Nonalcoholic steatohepatitis (NASH); E87.6 Hypokalemia; I10 Essential (primary) hypertension; E11.9 Type 2 diabetes mellitus without complications; F17.210 Nicotine dependence, cigarettes, uncomplicated; J44.9 Chronic obstructive pulmonary disease, unspecified; Z88.1 Allergy status to other antibiotic agents; Z88.2 Allergy status to sulfonamides; Z88.6 Allergy status to analgesic agent; Z88.5 Allergy status to narcotic agent; Z79.84 Long term (current) use of oral hypoglycemic drugs; Z79.52 Long term (current) use of systemic steroids; Z79.899 Other long term (current) drug therapy; Z88.8 Allergy status to other drugs, medicaments and biological substances; Z91.09 Other allergy status, other than to drugs and biological substances; Z90.49 Acquired absence of other specified parts of digestive tract; Z90.710 Acquired absence of both cervix and uterus; Z98.890 Other specified postprocedural states
CPT/HCPCS: 0241U; 36415; 70450; 71045; 80048; 80053; 80076; 81001; 82140; 82803; 82947; 83605; 83690; 83735; 84145; 84484; 85025; 87077; 87086; 87186; 87493; 93005; 93010; 94640; 94664; 94760; 96360; 96361; 97110; 97116; 97161; 97165; 97530; 99285-25; A9270; J1956; J3480; J7030; J7050

== ENCOUNTER 2022-02-05 16:02 | Inpatient (IN) | payer MEDICARE, OTHER ==
[~2022-02-05] VITALS: Ht 160 cm; Wt 76.8 kg
[~2022-02-05 16:02] MED LIST changes: +BUPR150ER PO; -Bupropion HCl75 MG PO; +GLIP2.5ER PO; +LEVO750 PO
[2022-02-05 17:08] LABS: BASOPHILS PERCENT AUTO 2 % (0-2); EOSINOPHILS ABSOLUTE AUTO 0.35 K/mm3 (0.00-0.68); EOSINOPHILS PERCENT AUTO 6 % (0-6); Hematocrit 31.3 % (33.0-51.0); Hemoglobin 10.2 g/dL (11.5-16.0); IMMATURE GRAN ABSOLUTE AUTO 0.03 K/mm3 (0.00-0.10); IMMATURE GRAN PERCENT AUTO 1 % (0-1); LYMPHOCYTES ABSOLUTE AUTO 1.62 K/mm3 (0.84-5.20); LYMPHOCYTES PERCENT AUTO 26 % (21-46); MONOCYTES ABSOLUTE AUTO 0.63 K/mm3 (0.16-1.47); MONOCYTES PERCENT AUTO 10 % (4-13); Mean Corpuscular HGB 32.1 pg (26.0-34.0); Mean Corpuscular HGB Conc 32.6 g/dL (31.5-36.5); Mean Corpuscular Volume 98 fL (80-100); Mean Platelet Volume 11.3 fL (9.1-12.4); NEUTROPHILS PERCENT AUTO 56 % (41-73); Platelet Count 89 K/mm3 (150-400); RDW Coefficient Variation 15.6 % (11.7-14.2); Red Blood Cell Count 3.18 M/mm3 (3.80-5.20); White Blood Cell Count 6.23 K/mm3 (4.00-11.30)
[2022-02-05 17:35] LABS: Magnesium, Blood 1.9 mg/dL (1.6-2.4)
[2022-02-05 17:36] LABS: Albumin/Globulin Ratio 0.6 (0.8-1.8); Bilirubin, Total 0.7 mg/dL (0.1-1.0); Bun/Creatinine Ratio 33.1 (12.0-20.0); Calcium, Blood 8.5 mg/dL (8.5-10.1); Globulin, Blood 3.4 g/dL (2.2-4.0); Potassium, Blood 3.4 mmol/L (3.5-5.5); Total Protein, Blood 5.4 g/dL (6.4-8.2)
[2022-02-05 18:03] LABS: Influenza A, PCR NEGATIVE (NEGATIVE); Influenza B, PCR NEGATIVE (NEGATIVE); Resp Syncytial Virus, PCR NEGATIVE (NEGATIVE); SARS-Cov-2 (COVID-19) PCR, MMC NEGATIVE (NEGATIVE)
[2022-02-05 19:02] LABS: Source, Urine Straight Cath
[2022-02-05 19:26] LABS: Bilirubin, Urine Neg (Neg); Blood, Urine Neg (Neg); Color, Urine Yellow (P-Yellow); Glucose Qualitative, Urine Neg (Neg); Ketones, Urine Neg (Neg); Leukocyte Esterase, Urine Neg (Neg); Nitrite, Urine Neg (Neg); Protein, Urine Neg (Neg); Urobilinogen, Urine NORM (Normal)
[2022-02-05 19:37] LABS: Appearance, Urine Hazy (Clear)
[2022-02-05 19:38] LABS: Bacteria Mod /hpf; Red Blood Cells, Urine 0-2 /hpf (0-2); Squamous Epithelial Cells Rare /hpf (Few)
[2022-02-05 19:39] LABS: Hyaline Casts 0-2 /lpf (0-2); Mucus Light (0-Heavy); Yeast/Fungi Urine Mod /hpf
[2022-02-05 22:58] LABS: Hematocrit 30.6 % (33.0-51.0); Hemoglobin 10.3 g/dL (11.5-16.0)
--- NOTE | 2022-02-06 01:11 | NUR ---
ARRIVAL TO ICU PT ARRIVED TO ICU 12 VIA ED BED AT 2235 AND TRANSFERED OVER TO ICU BED VIA SLIDE SHEET. PT IS ALERT/ORIENTED X4 AND IS ABLE TO MAKE HER NEEDS KNOWN; PT STATES THAT SHE STILL FEELS "HAZY" THOUGH. AFEBRILE. SPO2 >95% ON RA. HR 50-60'S. BP UPON ARRIVAL TO ICU 92/57 MAP 65; PO MIDODRINE GIVEN WHEN MAP CONSISTANTLY <65. EXCORIATION NOTED TO GLUTEAL FOLD; PICTURE IN CHART, BARRIER CREAM APPLIED. SEE ADMISSION ASSESSMENT FOR FULL ASSESSMENT. Evita MCDANIELS CALLED AND WAS PROVIDED UPDATE ABOUT PT AND PROVIDED PHONE NUMBER IN CASE OF EMERGENCY. ARSLAN'S NUMBER IS [phone].
[2022-02-06 03:49] LABS: BASOPHILS ABSOLUTE AUTO 0.07 K/mm3 (0.00-0.23); BASOPHILS PERCENT AUTO 1 % (0-2); EOSINOPHILS ABSOLUTE AUTO 0.34 K/mm3 (0.00-0.68); EOSINOPHILS PERCENT AUTO 5 % (0-6); Hematocrit 30.5 % (33.0-51.0); Hemoglobin 10.3 g/dL (11.5-16.0); IMMATURE GRAN ABSOLUTE AUTO 0.04 K/mm3 (0.00-0.10); IMMATURE GRAN PERCENT AUTO 1 % (0-1); LYMPHOCYTES ABSOLUTE AUTO 1.66 K/mm3 (0.84-5.20); LYMPHOCYTES PERCENT AUTO 25 % (21-46); MONOCYTES ABSOLUTE AUTO 0.82 K/mm3 (0.16-1.47); MONOCYTES PERCENT AUTO 13 % (4-13); Mean Corpuscular HGB 32.2 pg (26.0-34.0); Mean Corpuscular HGB Conc 33.8 g/dL (31.5-36.5); Mean Corpuscular Volume 95 fL (80-100); Mean Platelet Volume 11.4 fL (9.1-12.4); NEUTROPHILS ABSOLUTE AUTO 3.65 K/mm3 (1.96-9.15); NEUTROPHILS PERCENT AUTO 55 % (41-73); Platelet Count 85 K/mm3 (150-400); RDW Coefficient Variation 15.6 % (11.7-14.2); RDW Standard Deviation 55.1 fL (35.1-46.3); White Blood Cell Count 6.58 K/mm3 (4.00-11.30)
[2022-02-06 04:06] LABS: Albumin, Blood 1.9 g/dL (3.4-5.0); Albumin/Globulin Ratio 0.7 (0.8-1.8); Bilirubin, Total 2.8 mg/dL (0.1-1.0); Bun/Creatinine Ratio 32.1 (12.0-20.0); Calcium, Blood 7.6 mg/dL (8.5-10.1); Creatinine, Blood 0.84 mg/dL (0.40-1.00); Globulin, Blood 2.9 g/dL (2.2-4.0); Potassium, Blood 3.4 mmol/L (3.5-5.5); Total Protein, Blood 4.8 g/dL (6.4-8.2)
--- NOTE | 2022-02-06 07:12 | NUR ---
END OF SHIFT SUMMARY NO ACUTE EVENTS OVERNIGHT. PT WAS ABLE TO SLEEP ON AND OFF SINCE ARRIVAL TO ICU. PT IS A/O X4 AND ABLE TO MAKE HER NEEDS KNOWN BUT STATES THAT SHE FEELS "FOGGY" AND "HAZEY". AFEBRILE. SPO2 >95% ON RA. HR 50-60'S. SBP 80-90'S; MAP 60-70'S; CALLED DR GOODRICH REGARDING BP WHEN MAP CONSISTANTLY <65; NEW ORDER FOR ONE TIME DOES OF MIDODRINE GIVEN. NO BM OR UO. GLUCOSE WAS 51 FROM THIS AM LABS; DR GOODRICH CALLED AND PROVIDED NEW ORDER FOR D5 250ML BOLUS. REPORT GIVEN TO SANDRA Polo RN.
--- NOTE | 2022-02-06 07:53 | NUR ---
REPORT FROM MIGUEL ISAAC RN, PATIENT ALERT AND ORIENTED, MAKES NEEDS KNOWN, LAB TRYING TO DRAW PATIENT NOW, PATIENT EDUCATED THAT SHE CAN REFUSE BLOOD DRAWS, NPO, NO DISTRESS, CALL LIGHT WIHT IN REACH, TM
[2022-02-06 08:32] LABS: Hematocrit 34.1 % (33.0-51.0)
--- NOTE | 2022-02-06 08:57 | NUR ---
DR LIVE ROUNDED, REPORT BS 52, INCREASED DIET TO FULL LIQUID NO RED FOODS, CHANGED PATIENT STATUS TO PCU, AND D5 ONE TIME. PT/OT ORDERED, CALL LIGHT WITH IN REACH, ON PHONE WITH FRIEND/BOYFRIEND ARSLAN QUIJANO, EL
--- NOTE | 2022-02-06 11:41 | NUR ---
Supportive visit this AM. Spoke with Primary RN Radha and discussed case. Pt no longer ICU status and will transfer in house. No new concerns at this time. Pt resting in bed upon arrival. Pt reports living at home with her boyfriend who is supportive of her needs. She reports having a child who lives in [place]. She reports at baseline she is able to ambulate around the house with a cane and is able to bathe and dress her self. She reports at times finding these activities difficult but has home health in assisting with PT. Gentle education on routine conversations with PCP and developing multiple plans as chronic illnesses progress. Offered therapeutic listening as Pt reports she has been experiencing light headedness and dizziness when she is up ambulating. Instructed Pt to check her blood pressure everyday before taking any blood pressure medication. Continued therapeutic listening and answered questions. Ended visit as Chaplain Daniel in to visit with Pt. Palliative Care will remain available.
--- NOTE | 2022-02-06 11:51 | NUR ---
Spiritual Care Visit. Dropped in on pts. visit with Palliative Care, Pt. welcomed Spiritual care visit when Palliative care nurse Guanaco concluded his visit. Pt. is unsettled by not being able to recover at home and having to be readmitted to Hospital. Pt. is pleasant and cooperative, but displays evidence of frustration. Pt. verbalizes her desire to be able to work outside at her home. Listen theraputically with a calming presence. Eastablish rapport with Pt. Pt. displays evidence of trust and reduced anxiety. Pt. verbalized that alie has been part of her life in the past. Prayed with Pt. Pt. verbalized gratitude for the spiritual care visit, and welcomed this clinical assessment manager to return.
--- NOTE | 2022-02-06 11:59 | NUR ---
ASSUME CARE: I have assumed care of this patient.
--- NOTE | 2022-02-06 12:22 | NUR ---
PROVIDER PHONE CALL: Dr Marie called per patient request. Telephone order to change foods from liquid to soft.
[2022-02-06 15:30] LABS: Hematocrit 36.9 % (33.0-51.0)
--- NOTE | 2022-02-06 18:32 | NUR ---
SHIFT SUMMARY: Pt awake and alert, interacting with family and friend at bedside. She has made several requests for "good" food today. Diet was advanced from liquid to soft foods. Pt's significant other was asked to verify home food choices with RN as pt is requesting he bring in food that is outside of her ordered diet. She worked with PT and OT today to ambulate around room. Pt transferrs well independantly with standby assist. GI consult was discontinued after discussion with Dr Marie. Questionable run of torsades vs. artifact for which chem 8 and magnesium levels obtained; see notes for rhythm strip.
[2022-02-06 18:46] LABS: Magnesium, Blood 1.8 mg/dL (1.6-2.4)
[2022-02-06 18:49] LABS: Bun/Creatinine Ratio 23.8 (12.0-20.0); Calcium, Blood 8.3 mg/dL (8.5-10.1); Creatinine, Blood 0.88 mg/dL (0.40-1.00); Potassium, Blood 3.5 mmol/L (3.5-5.5)
--- NOTE | 2022-02-06 19:05 | NUR ---
Assumed care. Report received from dayshift RN. Pt alert and oriented, on room air, resting in bed att. VS stable, no acute needs at this time. Will continue to monitor.
[2022-02-07 05:21] LABS: BASOPHILS ABSOLUTE AUTO 0.09 K/mm3 (0.00-0.23); BASOPHILS PERCENT AUTO 1 % (0-2); EOSINOPHILS ABSOLUTE AUTO 0.25 K/mm3 (0.00-0.68); EOSINOPHILS PERCENT AUTO 3 % (0-6); Hematocrit 33.7 % (33.0-51.0); Hemoglobin 11.3 g/dL (11.5-16.0); IMMATURE GRAN ABSOLUTE AUTO 0.05 K/mm3 (0.00-0.10); IMMATURE GRAN PERCENT AUTO 1 % (0-1); LYMPHOCYTES ABSOLUTE AUTO 1.86 K/mm3 (0.84-5.20); LYMPHOCYTES PERCENT AUTO 21 % (21-46); MONOCYTES ABSOLUTE AUTO 1.25 K/mm3 (0.16-1.47); MONOCYTES PERCENT AUTO 14 % (4-13); Mean Corpuscular HGB 31.7 pg (26.0-34.0); Mean Corpuscular HGB Conc 33.5 g/dL (31.5-36.5); Mean Corpuscular Volume 95 fL (80-100); Mean Platelet Volume 10.8 fL (9.1-12.4); NEUTROPHILS ABSOLUTE AUTO 5.25 K/mm3 (1.96-9.15); NEUTROPHILS PERCENT AUTO 60 % (41-73); NRBC ABSOLUTE 0.02 K/mm3 (0.00-0.02); NRBC Auto 0.2 /100 WBC (0.0-0.2); Platelet Count 101 K/mm3 (150-400); RDW Coefficient Variation 15.7 % (11.7-14.2); RDW Standard Deviation 53.9 fL (35.1-46.3); Red Blood Cell Count 3.56 M/mm3 (3.80-5.20); White Blood Cell Count 8.75 K/mm3 (4.00-11.30)
[2022-02-07 05:58] LABS: Albumin, Blood 2.2 g/dL (3.4-5.0); Albumin/Globulin Ratio 0.6 (0.8-1.8); Bilirubin, Total 1.2 mg/dL (0.1-1.0); Bun/Creatinine Ratio 19.7 (12.0-20.0); Calcium, Blood 8.4 mg/dL (8.5-10.1); Creatinine, Blood 0.91 mg/dL (0.40-1.00); Globulin, Blood 3.6 g/dL (2.2-4.0); Potassium, Blood 3.4 mmol/L (3.5-5.5); Total Protein, Blood 5.8 g/dL (6.4-8.2)
[2022-02-07 06:11] LABS: Adenovirus F 40/41 Not Detected (NOT DETECT); Astrovirus Not Detected (NOT DETECT); Campylobacter Sp Not Detected (NOT DETECT); Cryptosporidium Not Detected (NOT DETECT); Cyclospora Cayetanensis Not Detected (NOT DETECT); E. Coli O157 Not Detected (NOT DETECT); Entamoeba Histolytica Not Detected (NOT DETECT); Enteroaggregative E. coli-EAEC Not Detected (NOT DETECT); Enteropathogenic E. coli-EPEC Not Detected (NOT DETECT); Enterotoxigenic E. coli-ETEC Not Detected (NOT DETECT); Giardia Lamblia Not Detected (NOT DETECT); Norovirus GI/GII Not Detected (NOT DETECT); Plesiomonas Shigelloides Not Detected (NOT DETECT); Rotavirus A Not Detected (NOT DETECT); Salmonella Sp Not Detected (NOT DETECT); Sapovirus Not Detected (NOT DETECT); Shiga Toxin-prod E. coli-STEC Not Detected (NOT DETECT); Shigella/Enteroin E. coli-EIEC Not Detected (NOT DETECT); Vibrio Cholerae Not Detected (NOT DETECT); Vibrio Sp Not Detected (NOT DETECT); Yersinia Enterocolitica Not Detected (NOT DETECT)
--- NOTE | 2022-02-07 06:17 | NUR ---
SHIFT SUMMARY. PT RESTED IN BED THROUGHOUT SHIFT, UP TO BEDSIDE COMMMODE TWICE. C/O PAIN IN SHOULDER, DR. QUISPE CONTACTED, ORDERS OBTAINED FOR TYLENOL, 650 MG PO Q6 PRN. PT VERY RELUCTANT TO ALLOW LAB DRAWS, ATTEMPTED PG IN EVIE, ABLE TO GET LABS DRAWN DURING THEN. NO ACUTE EVENTS OVERNIGHT, SEE ASSESSMENT FOR FURTHER DETAILS. WILL CONTINUE TO MONITOR AND REPORT OFF TO DAYSHIFT RN.
--- NOTE | 2022-02-07 07:06 | NUR ---
ASSUMED CARE: PT RESTING QUIETLY AT THIS TIME. NSR IN 80S ON TELE. NO ACUTE NEEDS OR CONCERNS AT THIS TIME.
--- NOTE | 2022-02-07 10:16 | NUR ---
DR LIVE CAME TO SEE PT AND MADE THEM AWARE THAT WE ARE WAITING FOR A SNF DISCHARGE. PT AND FAMILY ADAMANT THAT THEY DID NOT WANT TO BE DISCHARGED HOME TODAY. PT'S IV IS TENDER WITH FLUSHING BUT NO SIGNS OF SWELLING. DISCUSSED WITH CHEMICAL LIBRARIAN AND POWERGLIDE DEFERRED AT THIS TIME.
--- NOTE | 2022-02-07 10:30 | NUR ---
PT TRANSFERRED TO ROOM 308. REPORT GIVEN TO GRISEL LIU. AUTOMOTIVE SALES MANAGER SPOKE WITH PT PRIOR TO DC ABOUT GOING HOME WITH A PALLIATIVE CARE RESOURCE. AUTOMOTIVE SALES MANAGER STATES SHE WILL ENSURE THAT PT'S GETS CONTACTED REGARDING THIS RESOURCE BECAUSE HE STATED HE DID NOT THINK PT COULD COME HOME. MEDICAL FLOOR RN AWARE OF THIS PLAN.
--- NOTE | 2022-02-07 15:14 | NUR ---
Spiritual Care Visit. Pt. is awake and welcomes my visit. Pt. is unsettled by the fear of being discharged without knowing if her health issues have been addressed. Listen empathetically and discuss with Pt. some of the instructions she received from Palliative Care the previous day. Pt. displays evidence agreement and trust. Pt. also displays moments of agitation. Pastoral marriage counselor is given and rapport is re-established. Prayed for Pt. Pt. verbalized gratitude for the spiritual care visit.
[2022-02-07] MEDS ORDERED: HUMIRA PEN40 MG/0.2 SC (15:59)
--- NOTE | 2022-02-07 19:19 | NUR ---
SHALA IS ALERT AND ORIENTED AND COOPERATIVE WITH CARE. PATIENT STATES SHE WILL DISCHARGE HOME TOMORROW. 1PA WIH FWW. NO NEW CONCERNS THIS SHIFT. WILL CONTINUE TO MONITOR
--- NOTE | 2022-02-08 04:42 | NUR ---
SUBSTATION OPERATOR TRANSFORMING SUMMARY ADMITTED FOR HYPOTENSION. PT WAS ICU TRANSFER YESTERDAY. SHE IS A SBA WITH FWW TO THE BATHROOM. ON RA. PT IS ALERT AND ORIENTED X4. SHE IS REQUESTING TO BE DISCHARGED HOME WITH HOME HEALTH TODAY DESPITE URGING OF SIGNIFICANT OTHER TO GO TO A SNF. PT DID NOT HAVE ANY EVENTS THROUGH THE SHIFT. BP THROUGHOUT THE SHIFT WAS 100S/70S, IMPROVED.
[2022-02-08 05:23] LABS: BASOPHILS ABSOLUTE AUTO 0.07 K/mm3 (0.00-0.23); BASOPHILS PERCENT AUTO 1 % (0-2); EOSINOPHILS ABSOLUTE AUTO 0.23 K/mm3 (0.00-0.68); EOSINOPHILS PERCENT AUTO 2 % (0-6); Hemoglobin 10.8 g/dL (11.5-16.0); IMMATURE GRAN ABSOLUTE AUTO 0.06 K/mm3 (0.00-0.10); IMMATURE GRAN PERCENT AUTO 1 % (0-1); LYMPHOCYTES ABSOLUTE AUTO 1.51 K/mm3 (0.84-5.20); LYMPHOCYTES PERCENT AUTO 13 % (21-46); MONOCYTES ABSOLUTE AUTO 1.54 K/mm3 (0.16-1.47); MONOCYTES PERCENT AUTO 13 % (4-13); Mean Corpuscular HGB Conc 33.8 g/dL (31.5-36.5); Mean Corpuscular Volume 95 fL (80-100); Mean Platelet Volume 11.2 fL (9.1-12.4); NEUTROPHILS ABSOLUTE AUTO 8.21 K/mm3 (1.96-9.15); NEUTROPHILS PERCENT AUTO 71 % (41-73); Platelet Count 84 K/mm3 (150-400); RDW Coefficient Variation 15.8 % (11.7-14.2); RDW Standard Deviation 53.9 fL (35.1-46.3); Red Blood Cell Count 3.37 M/mm3 (3.80-5.20); White Blood Cell Count 11.62 K/mm3 (4.00-11.30)
[2022-02-08 05:49] LABS: Albumin, Blood 2.2 g/dL (3.4-5.0); Albumin/Globulin Ratio 0.7 (0.8-1.8); Bilirubin, Total 1.4 mg/dL (0.1-1.0); Bun/Creatinine Ratio 19.9 (12.0-20.0); Calcium, Blood 8.6 mg/dL (8.5-10.1); Creatinine, Blood 0.8 mg/dL (0.40-1.00); Globulin, Blood 3.2 g/dL (2.2-4.0); Potassium, Blood 3.8 mmol/L (3.5-5.5); Total Protein, Blood 5.4 g/dL (6.4-8.2)
--- NOTE | 2022-02-08 17:37 | NUR ---
SHIFT SUMMARY; PATIENT HAS DECIIDED THAT SHE WOULD LIKE TO GO TO SNF TO [facility] FOR 2 WEEKS PRIOR TO RETURNING HOME. HER BOYFRIEND IS IN AGREEMENT WITH THIS. PATIENT HAD NO ACUTE CHANGES IN CONDITION NOTED TODAY. ALL BLOOD PRESSURES TODAY WERE ABOVE 100 SYSTOLIC. SHE DID NOT COMPLAIN OF DIZZYNESS OR WEAKNESS TODAY. SHE DID HOWEVER COMPLAIN OF NAUSEA AND IS CURRENTLY RECIEIVING 5MG PO METOCLOPRMIDE (REGLAN)
--- NOTE | 2022-02-08 21:50 | NUR ---
PT FOUND TO BE WANDERING THE HALLWAY WITH HER WALKER AND GOT CONFUSED ABOUT WHERE SHE WAS AND WAS AND GOING INTO OTHER PATIENT ROOMS. ATTEMPTED TO PUT BED ALARM ON BUT PT UPSET WITH THIS SO WAS LEFT OFF BUT PT REMINDED TO CALL BEFORE GETTING OUT OF BED. PT ALSO UPSET WITH ADA DIET ORDER AND DEMANDING FOR ME TO "CALL THE DOCTOR" TO GET HER A ROOT BEER. PT GIVEN A ROOT BEER. PT S.O. CALLED SAYING HE WAS UPSET THAT WE REFUSED HER A SODA AND HAD HER BED ALARM ON. WASTE ELIMINATION INFORMED HIM THAT SHE WAS GIVEN A SODA ALREADY AND HER BED ALARM WAS NOT ON.
--- NOTE | 2022-02-09 05:19 | NUR ---
SAFETY TECH SUMMARY PT WITH POSSIBLE DISCHARGE TO SNF TOMORROW. SHE IS AGREEABLE AT THIS TIME. PT IS 1P SBA WITH FWW. SHE WAS FOUND WANDERING THE HALLWAY AND INTO OTHER PATIENT ROOMS AND WAS GUIDED BACK TO HER ROOM. I STRESSED TO HER THE IMPORTANCE OF CALLING BEFORE GETTING UP. PT MEDICATED WITH PM TRAZADONE AND MUSCLE RELAXER PER HER HOME RX. SHE HAS BEEN SLEEPING THROUGHOUT THE SHIFT.
--- NOTE | 2022-02-09 16:49 | NUR ---
SHIFT SUMMARY; PATIENT RECEIVING MIDODRINE PO THROUGHOUT DAY PER EMAR FOR LOW BLOOD PRESSURES. PATIENT STILL HAS MINIMAL APPETITE AND IS STILL RECEIVING REGLAN PO FOR NAUSEA. SHE AMBULATES IN HALLWAY USING FWW WITHOUT DIFFICULTY AND HAS PLEASANT AFFECT AND IS COOPERATIVE WITH CARE. HER BLOOD SUGARS ARE WNL IN THE AM AND SHE RECEIVES 1 UNIT INSULIN AT NOON FOR CHEM BG OF 166.
--- NOTE | 2022-02-09 22:56 | NUR ---
2200 PT LYING IN BED, REPORTS A LITTLE NAUSEA BUT DENIES NEED FOR ANY MEDS FOR IT AT THIS TIME. REPORTS MUSCLE PAIN R/T COUGHING IN R CW OF 6-7/10, WILL MEDICATE ORDERED AND EVAL FOR EFFECT. PT HAS AN OCCASIONAL NONPRODUCTIVE COUGH. SLIGHT REDNESS ON HER BOTTOM. SCRATCHES AND SCABS ON UE'S, 2 SCRAPES ON R ELBOW AND FA, PT REPORTS THESE ARE FROM HER DOGS. BS WAS 169. PT DECLINES SCD'S AT THIS TIME. NO OTHER APPARENT SIGNS OF DISTRESS. CALL LIGHT IS IN REACH.
--- NOTE | 2022-02-10 00:59 | NUR ---
02/09/22 2359 PT HAD N/V, CALLED AND GOT ZOFRAN PO ORDERED, ADMINISTERED, WILL EVAL FOR EFFECT. NO OTHER APPARENT SIGNS OF DISTRESS. CALL LIGHT IS IN REACH.
--- NOTE | 2022-02-10 04:36 | NUR ---
0200 PT LYING IN BED, EYES CLOSED, APPEARS TO BE RESTING. BREATHING IS EVEN, UNLABORED. NO APPARENT SIGNS OF DISTRESS. CALL LIGHT IS IN REACH.
--- NOTE | 2022-02-10 04:36 | NUR ---
0400 PT LYING IN BED, EYES CLOSED, WAKES EASILY TO VERBAL STIMULI. NO APPARENT SIGNS OF DISTRESS. CALL LIGHT IS IN REACH.
--- NOTE | 2022-02-10 04:36 | NUR ---
PT IS AAO X 4, ON RA. PT HAD NAUSEA, GOT ZOFRAN X 1 PO AND HAS REGLAN SCHEDULED. PT HAS RCW/NECK/R SHOULDER PAIN, GOT TYLENOL X 1. BS WAS 169. SLIGHT REDNESS ON BOTTOM. SCABS AND SCRATCHES ON UE'S, 2 SCRAPES ON R FA AND ELBOW.
[2022-02-10 05:14] LABS: BASOPHILS ABSOLUTE AUTO 0.08 K/mm3 (0.00-0.23); BASOPHILS PERCENT AUTO 1 % (0-2); EOSINOPHILS ABSOLUTE AUTO 0.41 K/mm3 (0.00-0.68); EOSINOPHILS PERCENT AUTO 5 % (0-6); Hemoglobin 10.5 g/dL (11.5-16.0); Mean Corpuscular HGB 32.2 pg (26.0-34.0); Mean Corpuscular HGB Conc 33.9 g/dL (31.5-36.5); Mean Corpuscular Volume 95 fL (80-100); Platelet Count 91 K/mm3 (150-400); RDW Coefficient Variation 15.9 % (11.7-14.2); RDW Standard Deviation 54.1 fL (35.1-46.3); Red Blood Cell Count 3.26 M/mm3 (3.80-5.20); White Blood Cell Count 8.25 K/mm3 (4.00-11.30)
[2022-02-10] MEDS ORDERED: Phenergan25 M1 PO (05:15)
[2022-02-10] MEDS ORDERED: BASAGLAR K100 UNIT/8 SC (05:16)
[2022-02-10] MEDS ORDERED: LISI20 PO (05:17)
[2022-02-10] MEDS ORDERED: SPIRONOLACTONE25 MG PO (05:20)
[2022-02-10] MEDS ORDERED: OXYC10TA19 PO (05:21)
[2022-02-10 05:22] LABS: IMMATURE GRAN ABSOLUTE AUTO 0.03 K/mm3 (0.00-0.10); IMMATURE GRAN PERCENT AUTO 0 % (0-1); LYMPHOCYTES ABSOLUTE AUTO 1.58 K/mm3 (0.84-5.20); LYMPHOCYTES PERCENT AUTO 19 % (21-46); MONOCYTES ABSOLUTE AUTO 1.67 K/mm3 (0.16-1.47); MONOCYTES PERCENT AUTO 20 % (4-13); NEUTROPHILS ABSOLUTE AUTO 4.48 K/mm3 (1.96-9.15); NEUTROPHILS PERCENT AUTO 54 % (41-73)
[2022-02-10] MEDS ORDERED: PROP10 PO (05:24)
[2022-02-10] MEDS ORDERED: BUDESONIDE0.5 MG/25 INH (05:24)
[2022-02-10] MEDS ORDERED: OMEP20ER PO (05:24)
[2022-02-10] MEDS ORDERED: SITA100T2 PO (05:28)
[2022-02-10] MEDS ORDERED: ZANAFLEX PO (05:29)
[2022-02-10 05:38] LABS: Albumin/Globulin Ratio 0.6 (0.8-1.8); Bilirubin, Total 1.3 mg/dL (0.1-1.0); Bun/Creatinine Ratio 20.7 (12.0-20.0); Calcium, Blood 8.3 mg/dL (8.5-10.1); Creatinine, Blood 0.68 mg/dL (0.40-1.00); Globulin, Blood 3.6 g/dL (2.2-4.0); Potassium, Blood 3.4 mmol/L (3.5-5.5); Total Protein, Blood 5.6 g/dL (6.4-8.2)
--- NOTE | 2022-02-10 06:06 | NUR ---
PT LYING IN BED,EYES CLOSED, APPEARS TO BE RESTING. BREATHING IS EVEN, UNLABORED. NO APPARENT SIGNS OF DISTRESS. CALL LIGHT IS IN REACH. NO OTHER CHANGES THIS SHIFT.
--- NOTE | 2022-02-10 18:05 | NUR ---
SHIFT SUMMARY PT ALERT AND ORIENTED, FOLLOWS COMMANDS. PT BP REMAINS STABLE WITH SCHEDULED MIDODRINE. NO C/O NAUSEA/VOMITING TODAY, PT RECEIVED SCHEDULED MEDICATIONS. STILL PENDING SNF PLACEMENT. NO C/O PAIN. WILL CONTINUE TO MONITOR.
--- NOTE | 2022-02-11 04:02 | NUR ---
SHIFT SUMMARY A/OX4, 1P ASSIST WITH FWW TO BATHROOM. DENIES PAIN OR SOB. VSS, NO ACUTE CHANGES AT THIS TIME. BED IN LOWEST POSITION WITH CALL LIGHT IN REACH. WILL CONTINUE TO MONITOR AND REPORT TO ONCOMING RN.
[2022-02-11] MEDS ORDERED: METO5A PO (11:52)
[2022-02-11] MEDS ORDERED: Midodrine HCl2.5 MG PO (11:53)
[2022-02-11] MEDS ORDERED: ONDA4 PO (11:54)
--- NOTE | 2022-02-11 14:05 | NUR ---
DISCHARGE INSTRUCTIONS, FOLLOWUP, AND MEDICATIONS GIVEN TO PATIENT. PT VOICED COMPLETE UNDERSTANDING AND HAS NO QUESTIONS AT THIS TIME. NO IV PRESENT, COLLECTING PERSONAL ITEMS. WILL CONTNUE TO MONITOR.
== END 2022-02-11 12:14 | disposition home health service (06) | DRG 315 ==
LOC: ER 16:02 → ICUW 22:10 → MEDS 22:10 → ICUW 22:25 → MEDS 02-07 10:53
PROVIDERS: Family Medicine; Internal Medicine; Physician Assistant; ADMIT Internal Medicine
PROC: 30233N1 Transfusion of Nonautologous Red Blood Cells into Peripheral Vein, Percutaneous Approach (ICD-10-PCS; principal; 2022-02-05)
DX: I95.9 Hypotension, unspecified (principal); K50.10 Crohn's disease of large intestine without complications; N39.0 Urinary tract infection, site not specified; K50.90 Crohn's disease, unspecified, without complications; K52.9 Noninfective gastroenteritis and colitis, unspecified; K29.00 Acute gastritis without bleeding; J44.9 Chronic obstructive pulmonary disease, unspecified; E87.6 Hypokalemia; K74.60 Unspecified cirrhosis of liver; K75.81 Nonalcoholic steatohepatitis (NASH); D69.6 Thrombocytopenia, unspecified; E11.9 Type 2 diabetes mellitus without complications; Z88.5 Allergy status to narcotic agent; Z88.8 Allergy status to other drugs, medicaments and biological substances; Z88.2 Allergy status to sulfonamides; Z88.6 Allergy status to analgesic agent; Z79.899 Other long term (current) drug therapy; Z98.890 Other specified postprocedural states; Z90.710 Acquired absence of both cervix and uterus; Z90.49 Acquired absence of other specified parts of digestive tract; F17.210 Nicotine dependence, cigarettes, uncomplicated; Z20.822 Contact with and (suspected) exposure to COVID-19; E86.0 Dehydration
CPT/HCPCS: 0241U; 36415; 36430; 71045; 74177; 80048; 80053; 81001; 82140; 82272; 82947; 83605; 83735; 84484; 85014; 85018; 85025; 86850; 86900; 86901; 86923; 87040; 87086; 87106; 87507; 93005; 93010; 94640; 94664; 94760; 94762; 97110; 97116; 97162; 97166; 97530; 97535; 99285-25; A9270; C1751; J7030; J7060; P9016; Q9967

== ENCOUNTER 2022-03-26 01:55 | Inpatient (IN) | payer MEDICARE, OTHER ==
[~2022-03-26] VITALS: Ht 170.2 cm; Wt 77.0 kg
[~2022-03-26 01:55] MED LIST changes: +BUDESONIDE0.5 MG/25 INH; +Cipro500 MG PO; +METO5A PO; +Midodrine HCl2.5 MG PO
[2022-03-26 02:24] LABS: BASOPHILS ABSOLUTE AUTO 0.06 K/mm3 (0.00-0.23); BASOPHILS PERCENT AUTO 1 % (0-2); EOSINOPHILS ABSOLUTE AUTO 0.33 K/mm3 (0.00-0.68); EOSINOPHILS PERCENT AUTO 4 % (0-6); Hematocrit 35.1 % (33.0-51.0); Hemoglobin 11.6 g/dL (11.5-16.0); IMMATURE GRAN ABSOLUTE AUTO 0.02 K/mm3 (0.00-0.10); IMMATURE GRAN PERCENT AUTO 0 % (0-1); LYMPHOCYTES ABSOLUTE AUTO 1.65 K/mm3 (0.84-5.20); LYMPHOCYTES PERCENT AUTO 19 % (21-46); MONOCYTES ABSOLUTE AUTO 1.08 K/mm3 (0.16-1.47); MONOCYTES PERCENT AUTO 13 % (4-13); Mean Corpuscular HGB 30.9 pg (26.0-34.0); Mean Corpuscular Volume 94 fL (80-100); Mean Platelet Volume 10.7 fL (9.1-12.4); NEUTROPHILS PERCENT AUTO 63 % (41-73); Platelet Count 169 K/mm3 (150-400); RDW Coefficient Variation 14.9 % (11.7-14.2); RDW Standard Deviation 50.9 fL (35.1-46.3); Red Blood Cell Count 3.75 M/mm3 (3.80-5.20); White Blood Cell Count 8.54 K/mm3 (4.00-11.30)
[2022-03-26 02:44] LABS: Albumin, Blood 2.5 g/dL (3.4-5.0); Albumin/Globulin Ratio 0.6 (0.8-1.8); Bilirubin, Total 1.8 mg/dL (0.1-1.0); Bun/Creatinine Ratio 19.5 (12.0-20.0); Calcium, Blood 8.9 mg/dL (8.5-10.1); Creatinine, Blood 0.97 mg/dL (0.40-1.00); Globulin, Blood 4.3 g/dL (2.2-4.0); Potassium, Blood 3.7 mmol/L (3.5-5.5); Total Protein, Blood 6.8 g/dL (6.4-8.2)
[2022-03-26 03:06] LABS: Source, Urine Straight Cath
[2022-03-26 03:07] LABS: Blood, Urine 1+ (Neg); Glucose Qualitative, Urine Neg (Neg); Ketones, Urine 1+ (Neg); Leukocyte Esterase, Urine 1+ (Neg); Nitrite, Urine Neg (Neg); Protein, Urine 2+ (Neg); Specific Gravity, Urine 1.025 (1.003-1.022); Urobilinogen, Urine 2+ (Normal)
[2022-03-26 03:19] LABS: Appearance, Urine Clear (Clear); Bilirubin, Urine 1+ (Neg); Color, Urine Amber (P-Yellow)
[2022-03-26 03:20] LABS: Bacteria Few /hpf; Mucus Light (0-Heavy); Red Blood Cells, Urine 0-2 /hpf (0-2); Squamous Epithelial Cells Mod /hpf (Few); White Blood Cells, Urine 0-2 /hpf (0-5); Yeast/Fungi Urine Few /hpf
[2022-03-26 03:32] LABS: U Amphetamine Screen Not Detected; U Barbituate Screen Not Detected; U Benzodiazapine Screen Not Detected; U Buprenorphine Screen Not Detected; U Cannabinoids Screen DETECTED; U Cocaine Screen Not Detected; U Methadone Screen Not Detected; U Methamphetamine Screen Not Detected; U Opiates Screen Not Detected; U Oxycodone Screen Not Detected; U Phencyclidine Screen Not Detected; U Propoxyphene Screen Not Detected
[2022-03-26 11:44] LABS: International Normalized Ratio 1.41; Prothrombin Time Results 14.5 Sec (9.7-11.5)
--- NOTE | 2022-03-26 18:24 | NUR ---
PT SUMMARY: PT ARRIVED IN THE UNIT FROM [facility], PT WAS TRANSFERRED TP PCU BED VIA SLIDER SHEET, PT WAS ONLY RESPONSIVE TO VERBAL STIMULI, HAS IO PLACED ON LEFT ANT TIBIA THAT WAS REMOVED AFTER POWERGLIDE WAS PALCED ONTO EVIE. PT WOKE UP CAME ALERT BEFORE LUNCH TIME WAS A LITTLE CONFUSED TRIED TO GET OUT OF BED WHILE AT BEDSIDE. PT WAS REDIRECTED EVENTUALLY CLEARED UP, PT CAME ALERT AND TALKING KNWOS SHE'S IN THE HOSPITAL BUT COULDNT REMEMBER WHAT HAPPENED BEFORE SHE GOT INTO THE HOSPITAL BUT REMEMBERED THAT SHE FELL AND LOSS CONSCIOUSNESS. PT IS HERE FOR ENCEPALOPATHY PT HAS RECTAL TUBE IN PLACE LACTULOSE ENEMA WAS ADMINISTERED THROUGH RECTAL TUBE. DIET RESUMED PT ABLE TO TOLERATE FOOD AND LIQUIDS WITH NO ISSUES. PT HAS BEEN PLEASANT AND COOPERATIVE T/O THE SHIFT. PT HAS PRESSURE SORE ON LEFT BUTTOCK STAGE 2, COVERED WITH MEPILEX, HAS SCRAPES AND SCABS ALL T/O FROM FALLS AT HOME PER PT. INCONTINENT OF URINE CHANGED ATTENDS TWICE FOR THE SHIFT. PT C/O ALL OVER PAIN PT STATED SHE TAKES PAIN MEDICINE AT HOME, ONLY MUSCLE RELAXER NOTED ON HOME MEDICATION LIST, ADDRESSED TO PROVIDER ORDER PLACED FOR TYLENOL AND ROBAXIN PT NOW RESTING IN BED, BED ALARM ON FOR SAFETY, CALL LIGHTS IN REACH, WILL REPORT TO ONCOMING SHIFT
--- NOTE | 2022-03-26 20:07 | NUR ---
CALL TO HOSPITALIST RESIDENT MD AJ PT IS NOW ALERT, EATING AND DRINKING WITHOUT ISSUE. REQUEST TO CONSIDER CHANGING THE LACTULOSE FROM ENEMA ROUTE TO ORAL. DR. AJ TO MAKE CHANGES TO MEDICATION ORDER.
[2022-03-26] MEDS ORDERED: FURO40 PO (21:25)
[2022-03-26] MEDS ORDERED: POTCHL20ER PO (21:26)
[2022-03-26] MEDS ORDERED: FLORAJEN PO (21:34)
[2022-03-27 04:57] LABS: BASOPHILS ABSOLUTE AUTO 0.08 K/mm3 (0.00-0.23); BASOPHILS PERCENT AUTO 1 % (0-2); EOSINOPHILS ABSOLUTE AUTO 0.56 K/mm3 (0.00-0.68); EOSINOPHILS PERCENT AUTO 7 % (0-6); Hematocrit 29.4 % (33.0-51.0); Hemoglobin 10.1 g/dL (11.5-16.0); IMMATURE GRAN ABSOLUTE AUTO 0.02 K/mm3 (0.00-0.10); IMMATURE GRAN PERCENT AUTO 0 % (0-1); LYMPHOCYTES ABSOLUTE AUTO 2.26 K/mm3 (0.84-5.20); LYMPHOCYTES PERCENT AUTO 26 % (21-46); MONOCYTES ABSOLUTE AUTO 1.25 K/mm3 (0.16-1.47); MONOCYTES PERCENT AUTO 15 % (4-13); Mean Corpuscular HGB 31.2 pg (26.0-34.0); Mean Corpuscular HGB Conc 34.4 g/dL (31.5-36.5); Mean Corpuscular Volume 91 fL (80-100); Mean Platelet Volume 10.9 fL (9.1-12.4); NEUTROPHILS ABSOLUTE AUTO 4.39 K/mm3 (1.96-9.15); NEUTROPHILS PERCENT AUTO 51 % (41-73); Platelet Count 142 K/mm3 (150-400); RDW Coefficient Variation 14.9 % (11.7-14.2); RDW Standard Deviation 49.8 fL (35.1-46.3); Red Blood Cell Count 3.24 M/mm3 (3.80-5.20); White Blood Cell Count 8.56 K/mm3 (4.00-11.30)
[2022-03-27 05:13] LABS: Bun/Creatinine Ratio 23.4 (12.0-20.0); Calcium, Blood 8.8 mg/dL (8.5-10.1); Creatinine, Blood 0.86 mg/dL (0.40-1.00); Potassium, Blood 3.1 mmol/L (3.5-5.5)
--- NOTE | 2022-03-27 13:09 | NUR ---
RECTAL TUBE FOUND PULLED OUT BY THIS RN AT 1252. PT WAS FOUND RETURNING TO BED FROM USING BEDSIDE COMMODE. WHEN CLEANING UP PT, RECTAL TUBE WAS DISLODGED. LIQUID AND SOME SMALL FORMED STOOL PRESENT IN PT ATTENDS. PT CLEANED, NEW ATTENDS IN PLACE, AND RECTAL TUBE NOT READMINISTERED.
--- NOTE | 2022-03-27 18:31 | NUR ---
SHIFT SUMMARY PT A/O X3, SOME CONFUSION. PT WILL FORGET IN MID SENTENCE WHAT SHE WAS TALKING ABOUT AT TIMES. VSS THROUGHOUT SHIFT WITH O2 SATS HIGH 90'S ON RA. NO REPORT OF CHEST PAIN/PRESSURE THORUGHOUT SHIFT. NO REPORT OF SOB THROUGHOUT SHIFT. PT WAS UP TO BEDSIDE COMMODE A COUPLE OF TIMES DURING SHIFT, TOLORATED WELL. RECTAL DISLODGED DURING SHIFT, PT NOW HAS ATTENDS IN PLACE. PT NEEDING REMINDERS TO DRINK ALL OF THE PRESCRIBED LACTULOSE WHEN GIVEN.
[2022-03-27] MEDS ORDERED: OXYC10TA19 PO (22:45)
[2022-03-28 05:01] LABS: BASOPHILS ABSOLUTE AUTO 0.08 K/mm3 (0.00-0.23); BASOPHILS PERCENT AUTO 1 % (0-2); EOSINOPHILS ABSOLUTE AUTO 0.49 K/mm3 (0.00-0.68); EOSINOPHILS PERCENT AUTO 6 % (0-6); Hematocrit 28.4 % (33.0-51.0); Hemoglobin 9.4 g/dL (11.5-16.0); IMMATURE GRAN ABSOLUTE AUTO 0.03 K/mm3 (0.00-0.10); IMMATURE GRAN PERCENT AUTO 0 % (0-1); LYMPHOCYTES ABSOLUTE AUTO 1.97 K/mm3 (0.84-5.20); LYMPHOCYTES PERCENT AUTO 22 % (21-46); MONOCYTES ABSOLUTE AUTO 1.37 K/mm3 (0.16-1.47); MONOCYTES PERCENT AUTO 16 % (4-13); Mean Corpuscular HGB 30.5 pg (26.0-34.0); Mean Corpuscular HGB Conc 33.1 g/dL (31.5-36.5); Mean Corpuscular Volume 92 fL (80-100); Mean Platelet Volume 11.3 fL (9.1-12.4); NEUTROPHILS PERCENT AUTO 56 % (41-73); Platelet Count 130 K/mm3 (150-400); RDW Coefficient Variation 15.1 % (11.7-14.2); RDW Standard Deviation 50.3 fL (35.1-46.3); Red Blood Cell Count 3.08 M/mm3 (3.80-5.20); White Blood Cell Count 8.84 K/mm3 (4.00-11.30)
[2022-03-28 05:18] LABS: Bun/Creatinine Ratio 23.1 (12.0-20.0); Calcium, Blood 8.4 mg/dL (8.5-10.1); Creatinine, Blood 0.78 mg/dL (0.40-1.00); Potassium, Blood 2.9 mmol/L (3.5-5.5)
--- NOTE | 2022-03-28 06:29 | NUR ---
FAIRLY UNEVENTFUL NIGHT WITH THE EXCEPTION OF ONE EPISODE OF VOMITING. PT DENIED ANY NAUSEA OR FEELING OTHERWISE ILL PRIOR TO THE EPISODE. CARE WAS PROVIDED BY OUR ACCOUNTING PRACTICE MANAGER AND PATIENT SLEPT COMFORTABLY FOLLOWING THAT EPISODE, WHICH OCCURRED AROUND 01:15 THIS MORNING. PATIENT REQUESTED OXYCODONE LAST NIGHT AND I WAS ABLE TO CONFIRM WITH HER SPOUSE, ARSLAN PATEL, THAT SHE DOES HAVE A PRESCRIPTION FOR OXYCODONE. HER HOME MEDICATION LIST WAS UPDATED WITH THIS PRESCRIPTION AND NEW ORDER PLACED THIS MORNING FOR ROXICODONE.
[2022-03-28 12:28] LABS: Hematocrit 29.3 % (33.0-51.0); Hemoglobin 9.7 g/dL (11.5-16.0)
[2022-03-28 15:04] LABS: Bun/Creatinine Ratio 23.8 (12.0-20.0); Calcium, Blood 8.3 mg/dL (8.5-10.1); Creatinine, Blood 0.8 mg/dL (0.40-1.00); Potassium, Blood 3.8 mmol/L (3.5-5.5)
--- NOTE | 2022-03-28 18:29 | NUR ---
DISCHARAGE UPDATE DISCHARGE PACKET GONE OVER WITH PT AND PT AT 1810. PT LEFT UNIT AT 1825 VIA WHEELCHAIR AND ON RA. PT ABLE TO TRANSFER SELF TO AND FROM WHEELCHAIR ON HER OWN. DISCHARGE PACKET IN BAG ALONG WITH PERSONAL BELONGINGS AND WITH DURING DISCHARGE. PRESCRIPTION HARD SCRIPT WITH PT DURING DISCHARGE.
== END 2022-03-28 18:24 | disposition home or self-care (01) | DRG 441 ==
LOC: ER 01:55 → PCU 05:38
PROVIDERS: Emergency Medicine; Family Medicine; Hospitalist; ADMIT Family Medicine
PROC: 30233N1 Transfusion of Nonautologous Red Blood Cells into Peripheral Vein, Percutaneous Approach (ICD-10-PCS; principal; 2022-03-26)
DX: K72.90 Hepatic failure, unspecified without coma (principal); G92.8 Other toxic encephalopathy; E72.20 Disorder of urea cycle metabolism, unspecified; E87.2 Acidosis; K50.90 Crohn's disease, unspecified, without complications; N39.0 Urinary tract infection, site not specified; K75.81 Nonalcoholic steatohepatitis (NASH); I10 Essential (primary) hypertension; D64.9 Anemia, unspecified; K74.60 Unspecified cirrhosis of liver; J44.9 Chronic obstructive pulmonary disease, unspecified; E87.6 Hypokalemia; F17.210 Nicotine dependence, cigarettes, uncomplicated; E11.649 Type 2 diabetes mellitus with hypoglycemia without coma; Z91.14 Patient's other noncompliance with medication regimen; Z90.710 Acquired absence of both cervix and uterus; Z98.890 Other specified postprocedural states; Z90.49 Acquired absence of other specified parts of digestive tract; Z87.440 Personal history of urinary (tract) infections; Z86.718 Personal history of other venous thrombosis and embolism; Z88.1 Allergy status to other antibiotic agents; Z88.2 Allergy status to sulfonamides; Z88.8 Allergy status to other drugs, medicaments and biological substances; Z79.2 Long term (current) use of antibiotics; Z79.4 Long term (current) use of insulin; Z79.899 Other long term (current) drug therapy
CPT/HCPCS: 36415; 70450; 71045; 80048; 80053; 81001; 82140; 82947; 83605; 83735; 84100; 85014; 85018; 85025; 85610; 85730; 87040; 94640; 94664; 94760; 96374; 99285-25; A9270; C1751; J0696; J1650; J7060; J7120

== ENCOUNTER 2022-04-21 23:11 | Inpatient (IN) | payer MEDICARE, OTHER ==
[~2022-04-21] VITALS: Ht 160 cm; Wt 76.6 kg
[~2022-04-21 23:11] MED LIST changes: +FLORAJEN PO; +POTCHL20ER PO
[2022-04-21 23:49] LABS: BASOPHILS ABSOLUTE AUTO 0.08 K/mm3 (0.00-0.23); BASOPHILS PERCENT AUTO 1 % (0-2); EOSINOPHILS ABSOLUTE AUTO 0.19 K/mm3 (0.00-0.68); EOSINOPHILS PERCENT AUTO 2 % (0-6); Hematocrit 36.8 % (33.0-51.0); IMMATURE GRAN ABSOLUTE AUTO 0.03 K/mm3 (0.00-0.10); IMMATURE GRAN PERCENT AUTO 0 % (0-1); LYMPHOCYTES ABSOLUTE AUTO 1.78 K/mm3 (0.84-5.20); LYMPHOCYTES PERCENT AUTO 17 % (21-46); MONOCYTES ABSOLUTE AUTO 1.53 K/mm3 (0.16-1.47); MONOCYTES PERCENT AUTO 15 % (4-13); Mean Corpuscular HGB 31.5 pg (26.0-34.0); Mean Corpuscular HGB Conc 32.6 g/dL (31.5-36.5); Mean Corpuscular Volume 97 fL (80-100); Mean Platelet Volume 11.2 fL (9.1-12.4); NEUTROPHILS ABSOLUTE AUTO 6.76 K/mm3 (1.96-9.15); NEUTROPHILS PERCENT AUTO 65 % (41-73); Platelet Count 161 K/mm3 (150-400); RDW Coefficient Variation 16.7 % (11.7-14.2); RDW Standard Deviation 58.3 fL (35.1-46.3); Red Blood Cell Count 3.81 M/mm3 (3.80-5.20); White Blood Cell Count 10.37 K/mm3 (4.00-11.30)
[2022-04-22 00:08] LABS: Albumin, Blood 2.3 g/dL (3.4-5.0); Albumin/Globulin Ratio 0.5 (0.8-1.8); Bilirubin, Total 2.1 mg/dL (0.1-1.0); Bun/Creatinine Ratio 16.2 (12.0-20.0); Calcium, Blood 8.5 mg/dL (8.5-10.1); Creatinine, Blood 1.11 mg/dL (0.40-1.00); Globulin, Blood 5.1 g/dL (2.2-4.0); Potassium, Blood 4.6 mmol/L (3.5-5.5); Total Protein, Blood 7.4 g/dL (6.4-8.2)
[2022-04-22 02:00] LABS: Source, Urine Straight Cath
[2022-04-22 02:16] LABS: Appearance, Urine Hazy (Clear); Bilirubin, Urine Neg (Neg); Blood, Urine Neg (Neg); Color, Urine Yellow (P-Yellow); Glucose Qualitative, Urine Neg (Neg); Ketones, Urine Neg (Neg); Leukocyte Esterase, Urine 1+ (Neg); Nitrite, Urine Neg (Neg); Protein, Urine Neg (Neg); Specific Gravity, Urine 1.025 (1.003-1.022); Urobilinogen, Urine NORM (Normal)
[2022-04-22 02:32] LABS: U Amphetamine Screen Not Detected; U Barbituate Screen Not Detected; U Benzodiazapine Screen Not Detected; U Buprenorphine Screen Not Detected; U Cannabinoids Screen Not Detected; U Cocaine Screen Not Detected; U Methadone Screen Not Detected; U Methamphetamine Screen Not Detected; U Opiates Screen Not Detected; U Oxycodone Screen Not Detected; U Phencyclidine Screen Not Detected; U Propoxyphene Screen Not Detected
[2022-04-22 02:35] LABS: Bacteria Mod /hpf; Calcium Oxalate Crystals Few /hpf; Hyaline Casts 25-50 /lpf (0-2); Red Blood Cells, Urine 0-2 /hpf (0-2); Squamous Epithelial Cells Few /hpf (Few); Yeast/Fungi Urine Mod /hpf
[2022-04-22 06:59] LABS: International Normalized Ratio 1.19; Prothrombin Time Results 12.4 Sec (9.7-11.5)
--- NOTE | 2022-04-22 18:47 | NUR ---
SHIFT SUMMARY PT UP FROM ED TO ROOM. PT ALERT AND ORIENTED BUT VERY FORGETFUL. PT X 1 ASSIST WITH WALKER/GAIT BELT TO BATHROOM. SCHEDULED LACTULOSE, AM AMMONIA LEVEL. WILL CONTINUE TO MONITOR. CALL LIGHT WITHIN REACH
--- NOTE | 2022-04-23 04:01 | NUR ---
SHIFT SUMMARY: A/OX 3, CAN BE VERY FORGETFUL. DIFFICULTY FOLLOWING CONVERSATION AT TIMES. PT REMAINS CONTINENT- CALLING APPROPRIATLEY. 2 LOOSE BOWEL MOVEMENTS TONIGHT. PT DID COMPLAIN OF PAIN TONIGHT REQUESTING HOME DOSE OF OXYCODON AND SLEEPING MEDICATIONS- JOLEEN HUANG DECLINED ORDERING HOME PAIN MEDICATION AND SLEEPING MEDICATION DUE TO REMAINING CONFUSION- MD ORDERED ONE TIME DOSE OF FENTANYL 25MCG X1 FOR PAIN CONTROL. PER PT GAVE SOME RELIEF. BED ALARM REMAINS ACTIVATED, BED IN LOW POSITION, CALL SANCHEZ AND BELONGINGS IN REACH.
[2022-04-23 05:33] LABS: BASOPHILS ABSOLUTE AUTO 0.06 K/mm3 (0.00-0.23); BASOPHILS PERCENT AUTO 1 % (0-2); EOSINOPHILS ABSOLUTE AUTO 0.27 K/mm3 (0.00-0.68); EOSINOPHILS PERCENT AUTO 4 % (0-6); Hematocrit 30.3 % (33.0-51.0); Hemoglobin 9.9 g/dL (11.5-16.0); IMMATURE GRAN ABSOLUTE AUTO 0.01 K/mm3 (0.00-0.10); IMMATURE GRAN PERCENT AUTO 0 % (0-1); LYMPHOCYTES PERCENT AUTO 24 % (21-46); MONOCYTES ABSOLUTE AUTO 1.43 K/mm3 (0.16-1.47); MONOCYTES PERCENT AUTO 19 % (4-13); Mean Corpuscular HGB 30.8 pg (26.0-34.0); Mean Corpuscular HGB Conc 32.7 g/dL (31.5-36.5); Mean Corpuscular Volume 94 fL (80-100); NEUTROPHILS ABSOLUTE AUTO 3.98 K/mm3 (1.96-9.15); NEUTROPHILS PERCENT AUTO 53 % (41-73); Platelet Count 130 K/mm3 (150-400); RDW Coefficient Variation 16.2 % (11.7-14.2); RDW Standard Deviation 55.6 fL (35.1-46.3); Red Blood Cell Count 3.21 M/mm3 (3.80-5.20); White Blood Cell Count 7.55 K/mm3 (4.00-11.30)
[2022-04-23 06:15] LABS: Albumin, Blood 2.5 g/dL (3.4-5.0); Albumin/Globulin Ratio 0.6 (0.8-1.8); Bilirubin, Total 1.4 mg/dL (0.1-1.0); Bun/Creatinine Ratio 20.2 (12.0-20.0); Calcium, Blood 8.8 mg/dL (8.5-10.1); Creatinine, Blood 0.89 mg/dL (0.40-1.00); Potassium, Blood 2.9 mmol/L (3.5-5.5); Total Protein, Blood 6.5 g/dL (6.4-8.2)
[2022-04-23 17:02] LABS: Albumin, Blood 2.6 g/dL (3.4-5.0); Anion Gap 7 mmol/L (6-16); Blood Urea Nitrogen 15 mg/dL (8-24); Bun/Creatinine Ratio 16.6 (12.0-20.0); CO2, Blood 27 mmol/L (21-32); Calcium, Blood 8.9 mg/dL (8.5-10.1); Chloride, Blood 112 mmol/L (98-108); Creatinine, Blood 0.91 mg/dL (0.40-1.00); Glomerular Filtration Rate 70 (60-); Glucose, Blood 134 mg/dL (70-99); Phosphorus, Blood 2.9 mg/dL (2.5-4.9); Potassium, Blood 3.6 mmol/L (3.5-5.5); Sodium, Blood 146 mmol/L (136-145)
--- NOTE | 2022-04-23 18:29 | NUR ---
SHIFT SUMMARY PT A&OX 3-4, MENTAL CLARITY IMPROVING T/O SHIFT. CALL LIGHT W/IN REACH. SIGNIFICANT OTHER @ BEDSIDE T/O VISITING HOURS. LOOSE STOOL T/O SHIFT, CONTINUING TO PROVIDE LACTULOSE. VSS. TOLERATING PO INTAKE WELL. PLAN TO D/C TOMORROW.
--- NOTE | 2022-04-23 23:33 | NUR ---
TOLERATED LACULOSE AT HS, REQUESTED SLEEP MED. CALL PLACED TO MD, BUT CURRENTLY RESTING QUIETLY (SLEEPING). CALL LIGHT IN REACH. MED HELD AT THIS TIME
--- NOTE | 2022-04-24 03:26 | NUR ---
BP 85/52. ASYMPTOMATIC. LEGS ELEVATED. WILL RECHECK BP IN 30 - 60 MIN. CALL LIGHT IN REACH
--- NOTE | 2022-04-24 05:08 | NUR ---
MAINTAINER CENTRAL OFFICE SUMMARY AT VOICED SHE WANTED A SLEEP MED SHE HAD BEEN HAVING DIFFICULTIES GETTING TO SLEEP. MD WAS NOTIFIED AND MED ORDERED, BUT WHEN NURSE WAS TO GIVE IT, PT WAS ASLEEP AND DID NOT APPEAR TO NEED IT. MED WAS HELD. HAD BEEN RSTING QUIETLY WITH EW INTERRRUPTIONS. BP WAS NOTED TO BE LOW (88/54). LEGS ELEVATED BUT WAS NOT EFFECTIVE. MD NOTIFIED AND BOLUS OF 500 CC OF NS ORDERED X 1. IVF INFUSING AT THIS TIME. OTHER THAN LETHARGY, ASYMPTOMATIC. CALL LIGHT IN REACH
--- NOTE | 2022-04-24 06:26 | NUR ---
BOLUS EFFECTIVE. BP 98/61. CALL LIGHT IN REACH. MORE ALERT.
[2022-04-24 08:14] LABS: BASOPHILS ABSOLUTE AUTO 0.07 K/mm3 (0.00-0.23); BASOPHILS PERCENT AUTO 1 % (0-2); EOSINOPHILS ABSOLUTE AUTO 0.35 K/mm3 (0.00-0.68); EOSINOPHILS PERCENT AUTO 6 % (0-6); Hematocrit 26.5 % (33.0-51.0); Hemoglobin 8.5 g/dL (11.5-16.0); IMMATURE GRAN ABSOLUTE AUTO 0.01 K/mm3 (0.00-0.10); IMMATURE GRAN PERCENT AUTO 0 % (0-1); LYMPHOCYTES PERCENT AUTO 36 % (21-46); MONOCYTES ABSOLUTE AUTO 0.96 K/mm3 (0.16-1.47); MONOCYTES PERCENT AUTO 17 % (4-13); Mean Corpuscular HGB 30.9 pg (26.0-34.0); Mean Corpuscular HGB Conc 32.1 g/dL (31.5-36.5); Mean Corpuscular Volume 96 fL (80-100); Mean Platelet Volume 11.2 fL (9.1-12.4); NEUTROPHILS ABSOLUTE AUTO 2.21 K/mm3 (1.96-9.15); NEUTROPHILS PERCENT AUTO 39 % (41-73); Platelet Count 113 K/mm3 (150-400); RDW Coefficient Variation 16.4 % (11.7-14.2); RDW Standard Deviation 57.1 fL (35.1-46.3); Red Blood Cell Count 2.75 M/mm3 (3.80-5.20)
[2022-04-24 08:32] LABS: Albumin, Blood 1.9 g/dL (3.4-5.0); Anion Gap 4 mmol/L (6-16); Blood Urea Nitrogen 16 mg/dL (8-24); Bun/Creatinine Ratio 18.5 (12.0-20.0); CO2, Blood 27 mmol/L (21-32); Calcium, Blood 8.1 mg/dL (8.5-10.1); Chloride, Blood 112 mmol/L (98-108); Creatinine, Blood 0.86 mg/dL (0.40-1.00); Glomerular Filtration Rate 74 (60-); Glucose, Blood 134 mg/dL (70-99); Magnesium, Blood 1.9 mg/dL (1.6-2.4); Phosphorus, Blood 3.1 mg/dL (2.5-4.9); Potassium, Blood 3.5 mmol/L (3.5-5.5); Sodium, Blood 143 mmol/L (136-145)
[2022-04-24 11:56] LABS: Hematocrit 27.5 % (33.0-51.0); Hemoglobin 8.8 g/dL (11.5-16.0)
== END 2022-04-24 12:49 | disposition home health service (06) | DRG 441 ==
LOC: ER 23:11 → ERHOLD 04-22 04:45 → MEDS 04-22 12:32 → ENPENDDIS 04-23 17:54 → MEDS 04-24 12:49
PROVIDERS: Internal Medicine; Student in an Organized Health Care Education/Training Program; ADMIT Internal Medicine
DX: K72.00 Acute and subacute hepatic failure without coma (principal); G92.8 Other toxic encephalopathy; E72.20 Disorder of urea cycle metabolism, unspecified; K50.90 Crohn's disease, unspecified, without complications; N17.9 Acute kidney failure, unspecified; K74.60 Unspecified cirrhosis of liver; K75.81 Nonalcoholic steatohepatitis (NASH); J44.9 Chronic obstructive pulmonary disease, unspecified; E11.9 Type 2 diabetes mellitus without complications; I10 Essential (primary) hypertension; D64.9 Anemia, unspecified; F17.210 Nicotine dependence, cigarettes, uncomplicated; E86.0 Dehydration; E88.09 Other disorders of plasma-protein metabolism, not elsewhere classified; E87.6 Hypokalemia; Z88.8 Allergy status to other drugs, medicaments and biological substances; Z87.440 Personal history of urinary (tract) infections; Z86.718 Personal history of other venous thrombosis and embolism; Z98.890 Other specified postprocedural states; Z90.710 Acquired absence of both cervix and uterus; Z90.49 Acquired absence of other specified parts of digestive tract; Z91.14 Patient's other noncompliance with medication regimen; Z88.2 Allergy status to sulfonamides; Z88.5 Allergy status to narcotic agent; Z79.899 Other long term (current) drug therapy; Z79.02 Long term (current) use of antithrombotics/antiplatelets; Z79.52 Long term (current) use of systemic steroids; Z79.01 Long term (current) use of anticoagulants; Z79.891 Long term (current) use of opiate analgesic; Z88.1 Allergy status to other antibiotic agents
CPT/HCPCS: 36415; 71045; 80053; 80069; 81001; 82140; 82947; 83735; 83880; 85014; 85018; 85025; 85610; 87086; 87106; 93005; 93010; 94640; 94664; 94760; 96372; 96374; 96375; 99285-25; A9270; J1650; J1956; J3010; J3480; J7030; J7050; P9047; P9612

== ENCOUNTER → 2022-09-04 | Outpatient (CLI) | payer MEDICARE, OTHER ==
[2022-09-04 15:12] LABS: Source, Urine Clean Catch
[2022-09-04 16:59] LABS: Appearance, Urine Clear (Clear); Bilirubin, Urine Neg (Neg); Blood, Urine Neg (Neg); Color, Urine Yellow (P-Yellow); Glucose Qualitative, Urine Neg (Neg); Ketones, Urine Neg (Neg); Leukocyte Esterase, Urine Neg (Neg); Nitrite, Urine Neg (Neg); Protein, Urine Neg (Neg); Urobilinogen, Urine NORM (Normal)
== END | disposition home or self-care (01) ==
LOC: LAB SHORT 09:00 → LAB 09:00
PROVIDERS: Nurse Practitioner Family
DX: R30.0 Dysuria (principal)
CPT/HCPCS: 81003

== ENCOUNTER → 2022-09-22 | Outpatient (CLI) | payer MEDICARE, OTHER ==
[2022-09-22 19:20] LABS: Bun/Creatinine Ratio 9.4 (12.0-20.0); Calcium, Blood 9.3 mg/dL (8.5-10.1); Creatinine, Blood 2.02 mg/dL (0.40-1.00); Potassium, Blood 3.5 mmol/L (3.5-5.5)
== END | disposition home or self-care (01) ==
LOC: LAB 16:18 → LAB SHORT 16:18
PROVIDERS: Nurse Practitioner Family
DX: K74.60 Unspecified cirrhosis of liver (principal); K76.82 Hepatic encephalopathy; R53.1 Weakness; R60.9 Edema, unspecified
CPT/HCPCS: 80048

== ENCOUNTER 2022-09-26 14:27 | Inpatient (IN) | payer MEDICARE, OTHER ==
[~2022-09-26] VITALS: Ht 154.9 cm; Wt 70.0 kg
[2022-09-26] MEDS ORDERED: ALBU90OI INH (14:54)
[2022-09-26] MEDS ORDERED: ECONAZOLE NIT 130 GM TP (14:55)
[2022-09-26] MEDS ORDERED: Acerola C500 MG PO (14:55)
[2022-09-26] MEDS ORDERED: ESCI20 PO (14:56)
[2022-09-26] MEDS ORDERED: IPRAT-ALBUT 0.5-3 ML (14:57)
[2022-09-26] MEDS ORDERED: NYSTRIT TOP (14:58)
[2022-09-26] MEDS ORDERED: TORS10 PO (14:59)
[2022-09-26] MEDS ORDERED: TRAZ100 PO (14:59)
[2022-09-26] MEDS ORDERED: RIFA550T2 PO (14:59)
[2022-09-26] MEDS ORDERED: ZINC220 PO (15:00)
[2022-09-26 15:02] LABS: BASOPHILS ABSOLUTE AUTO 0.04 K/mm3 (0.00-0.23); BASOPHILS PERCENT AUTO 1 % (0-2); EOSINOPHILS ABSOLUTE AUTO 0.11 K/mm3 (0.00-0.68); EOSINOPHILS PERCENT AUTO 1 % (0-6); Hematocrit 29.9 % (33.0-51.0); Hemoglobin 10.1 g/dL (11.5-16.0); IMMATURE GRAN ABSOLUTE AUTO 0.02 K/mm3 (0.00-0.10); IMMATURE GRAN PERCENT AUTO 0 % (0-1); LYMPHOCYTES ABSOLUTE AUTO 0.94 K/mm3 (0.84-5.20); LYMPHOCYTES PERCENT AUTO 12 % (21-46); MONOCYTES ABSOLUTE AUTO 0.96 K/mm3 (0.16-1.47); MONOCYTES PERCENT AUTO 12 % (4-13); Mean Corpuscular HGB 30.5 pg (26.0-34.0); Mean Corpuscular HGB Conc 33.8 g/dL (31.5-36.5); Mean Corpuscular Volume 90 fL (80-100); NEUTROPHILS ABSOLUTE AUTO 5.68 K/mm3 (1.96-9.15); NEUTROPHILS PERCENT AUTO 73 % (41-73); Platelet Count 106 K/mm3 (150-400); RDW Coefficient Variation 15.6 % (11.7-14.2); RDW Standard Deviation 51.2 fL (35.1-46.3); Red Blood Cell Count 3.31 M/mm3 (3.80-5.20); White Blood Cell Count 7.75 K/mm3 (4.00-11.30)
[2022-09-26 15:27] LABS: Source, Urine Straight Cath
[2022-09-26 15:28] LABS: Albumin, Blood 2.1 g/dL (3.4-5.0); Albumin/Globulin Ratio 0.5 (0.8-1.8); Bilirubin, Total 1.3 mg/dL (0.1-1.0); Bun/Creatinine Ratio 11.9 (12.0-20.0); Calcium, Blood 8.6 mg/dL (8.5-10.1); Creatinine, Blood 2.26 mg/dL (0.40-1.00); Globulin, Blood 3.9 g/dL (2.2-4.0); Potassium, Blood 3.8 mmol/L (3.5-5.5)
[2022-09-26 15:36] LABS: Appearance, Urine Clear (Clear); Bilirubin, Urine Neg (Neg); Blood, Urine 1+ (Neg); Color, Urine Yellow (P-Yellow); Glucose Qualitative, Urine Neg (Neg); Ketones, Urine Neg (Neg); Leukocyte Esterase, Urine 3+ (Neg); Nitrite, Urine Neg (Neg); Protein, Urine Neg (Neg); Specific Gravity, Urine 1.015 (1.003-1.022); Urobilinogen, Urine NORM (Normal)
[2022-09-26 15:46] LABS: Bacteria Many /hpf; Squamous Epithelial Cells Few /hpf (Few); White Blood Cells, Urine 25-50 /hpf (0-5)
[2022-09-26 15:59] LABS: U Amphetamine Screen Not Detected; U Barbituate Screen Not Detected; U Benzodiazapine Screen Not Detected; U Buprenorphine Screen Not Detected; U Cannabinoids Screen Not Detected; U Cocaine Screen Not Detected; U Methadone Screen Not Detected; U Methamphetamine Screen Not Detected; U Opiates Screen Not Detected; U Oxycodone Screen DETECTED; U Phencyclidine Screen Not Detected; U Propoxyphene Screen Not Detected
[2022-09-26 16:55] LABS: PCO2 Venous 48.9 mmHg (38-42); pH Blood Venous 7.41 (7.34-7.37)
[2022-09-26 16:56] LABS: Base Excess Venous 6.1 mmol/L; Bicarbonate Venous 28.9 mmol/L (24.0-30.0)
[2022-09-26 17:16] LABS: Influenza A, PCR NEGATIVE (NEGATIVE); Influenza B, PCR NEGATIVE (NEGATIVE); Resp Syncytial Virus, PCR NEGATIVE (NEGATIVE); SARS-Cov-2 (COVID-19) PCR, MMC NEGATIVE (NEGATIVE)
[2022-09-26 23:50] LABS: Base Excess Venous 7.2 mmol/L; Bicarbonate Venous 30.5 mmol/L (24.0-30.0); PCO2 Venous 40.7 mmHg (38-42); pH Blood Venous 7.48 (7.34-7.37)
[2022-09-27 02:29] LABS: BASOPHILS ABSOLUTE AUTO 0.05 K/mm3 (0.00-0.23); BASOPHILS PERCENT AUTO 1 % (0-2); EOSINOPHILS ABSOLUTE AUTO 0.21 K/mm3 (0.00-0.68); EOSINOPHILS PERCENT AUTO 2 % (0-6); Hematocrit 31.1 % (33.0-51.0); Hemoglobin 10.5 g/dL (11.5-16.0); IMMATURE GRAN ABSOLUTE AUTO 0.02 K/mm3 (0.00-0.10); IMMATURE GRAN PERCENT AUTO 0 % (0-1); LYMPHOCYTES PERCENT AUTO 17 % (21-46); MONOCYTES ABSOLUTE AUTO 1.19 K/mm3 (0.16-1.47); MONOCYTES PERCENT AUTO 13 % (4-13); Mean Corpuscular HGB Conc 33.8 g/dL (31.5-36.5); Mean Corpuscular Volume 89 fL (80-100); Mean Platelet Volume 10.8 fL (9.1-12.4); NEUTROPHILS ABSOLUTE AUTO 6.02 K/mm3 (1.96-9.15); NEUTROPHILS PERCENT AUTO 67 % (41-73); Platelet Count 138 K/mm3 (150-400); RDW Coefficient Variation 15.5 % (11.7-14.2); RDW Standard Deviation 49.6 fL (35.1-46.3); White Blood Cell Count 8.99 K/mm3 (4.00-11.30)
[2022-09-27 02:48] LABS: Albumin, Blood 2.1 g/dL (3.4-5.0); Albumin/Globulin Ratio 0.6 (0.8-1.8); Bilirubin, Total 1.1 mg/dL (0.1-1.0); Bun/Creatinine Ratio 12.7 (12.0-20.0); Calcium, Blood 8.3 mg/dL (8.5-10.1); Creatinine, Blood 2.05 mg/dL (0.40-1.00); Globulin, Blood 3.7 g/dL (2.2-4.0); Magnesium, Blood 1.6 mg/dL (1.6-2.4); Potassium, Blood 2.9 mmol/L (3.5-5.5); Total Protein, Blood 5.8 g/dL (6.4-8.2)
--- NOTE | 2022-09-27 03:18 | NUR ---
ADMIT TO ICU 15: ER ADMIT TO ICU 15 ARRIVED TO THE UNIT AT 0035; PT ADMITTED DUE TO HYPOTENSION SECONDARY TO UROSEPSIS. PT ARRIVED TO THE UNTI WITH LEVO GTT @ 3 MCG/KG/MIN AND SBP 70-80'S. PT A&O X 4 WHEN ARRIVED TO UNIT, PLEASANT AND COOPERATIVE WITH CARE. PT ON RA WITH CLEAR LUNG SOUNDS; PT HAS HX OF COPD AND OXYGEN USE AT HOME OF 3.5 LPM. PT ON RA IN THE ER AND MAINTAINING SPO2 98<; PT REMAINS ON RA. PT SR ON MONITOR WITH HR IN THE 70'S, NO C/O CHEST PAIN OR SOB. PT ABD SOFT, TENDER TO PALPATIONS R/T HS OF CHRONS DISEASE. PT HAS PUREWICK IN PLACE ON LOW, CONTINUOUS SUCTIONING. PT PPP X 4, SKIN WARN; PT HAS SIGNIFICANT PRESSURE ULCER TO COCCYX, WOUND CARE AND MEPILEX APPLIED. PT STATES WOUND CARE COMES TO HER HOME EVERY 3-5 DAYS TO CHANGE DRESSING BUT CANNOT RECALL LAST TIME THE DRESSSING WAS CHANGED. PT HAS CHRONIC PAIN TO COCCYX. CURRENTLY LEVO GTT @ 8 MCG WITH SBP 90'S, MAP 65<. BED LOWERED, CALL LIGHT IN REACH, WILL CONTINUE TO MONITOR.
--- NOTE | 2022-09-27 06:43 | NUR ---
SHIFT SUMMARY: NO ACUTE CHANGES SINCE ADMISSION TO THE UNIT. PT REMAINS ON LEVO GTT @ 6 MCG/KG/MIN, HR IN THE 70'S AND SBP 90-100, MAP 70<. PT HAD A RIJ CENTRAL LINE PLACED THIS MORNING, PT TOLERATED PROCEDURE WELL. PT SLEEPING ON AND OFF THIS MORNING. PUREWICK IN PLACE BUT PT HAS NOT PRODUCED URINE OUTPUT SINCE LEAVING ER. WILL CONTINUE TO MONITOR UNTIL ONCOMING RN ARRIVES.
--- NOTE | 2022-09-27 07:40 | NUR ---
SHIFT ASSESSMENT PT A&OX4 BUT FORGETFUL AT TIMES. SITTING UPRIGHT IN BED C/O LACK OF SLEEP. PLEASANT AND INTERACTIVE WITH CARE. LEVOPHED REMAINS ON @ 4MCG/MIN c MAP >65, INFUSING VIA CENTRAL LINE. PT DENIES CP/ SOB. TOLERATING PO INTAKE, NO BM THIS AM. PUREWICK IN PLACE, WILL DC PT USING BEDPAN AND CALL LIGHT APPROPRIATELY. CHRONIC PRESSURE ULCER TO COCCYX, MEPILEX CLEAN AND DRY. WILL CONTINUE TO MONITOR.
[2022-09-27 08:48] LABS: International Normalized Ratio 1.33; Prothrombin Time Results 13.7 Sec (9.7-11.5)
--- NOTE | 2022-09-27 10:15 | NUR ---
Brief supportive visit this AM. Pt resting in bed and reports mild tolerable pain in her back and cocyyx area. Brief review of plan of care. Pt reports being tired as she has not slept in 2 days. Ended visit to allow Pt to rest. Pt agreeable to continued PC visits. Palliative Care will remain available
--- NOTE | 2022-09-27 18:10 | NUR ---
SHIFT SUMMARY PT A&OX4, REMAINS FORGETFUL. HAVE NOT HAD PT OUT OF BED TODAY DUE TO WEAKNESS. LEVOPHED TURNED OFF THIS AFTERNOON, MAPS >65 CURRENTLY. PT WITH EXTREMELY POOR APPETITE, TAKING SMALL PORTIONS FROM EACH MEAL. PUREWICK IN PLACE, CLEAR YELLOW URINE OUT. TWO MODERATE LOOSE BM'S TODAY. COCCYX WOUND CLEANSED AND DRESSING CHANGED X 2 TODAY, BARRIER CREAM APPLIED TO SURROUNDING TISSUE. NO OTHER ACUTE CHANGES.
--- NOTE | 2022-09-27 19:15 | NUR ---
ASSUMED CARE OF PT @1900 FROM ANALY LIU. BEDSIDE REPORT. PT IS RESTING COMFORTABLY. A&O X4. PLEASANT AND COOPERATIVE WITH CARE. 2L O2 VIA NC. RR <20, SPO2 >94%. CONTINUOUS CARDIAC MONITORING. HR 70'S, SBP SOFT. RIJ PATENT W/TKO INFUSING. 20GA RFA PATENT W/SALINE LOCK. PUREWICK IN PLACE.
--- NOTE | 2022-09-28 | NUR ---
PT HAD EPISODE OF SHORTNESS OF BREATH WHILE USING THE BEDPAN. DESATED INTO THE 80'S, RR REMAINED <20, HR REMAINED 70'S. O2 INCREASED TO 3L NC. PT SAT AT EDGE OF BED FOR SEVERAL MINUTES UNTIL SPO2 RETURNED TO >94% AND SHE FELT COMFORTABLE TO LAY BACK DOWN. PT STATES SHE HAD FELT THIS WAY EARLIER IN THE DAY. DENIES CHEST PAIN OR DIZZINESS. PT REPOSITIONED AND IS RESTING COMFORTABLY. GAVE PRN PAIN MEDICATION FOR COCCYX PAIN.
--- NOTE | 2022-09-28 02:13 | NUR ---
LEVOPHED RESTARTED DT TRENDING AND CONSISTENT LOW SBP IN THE 80'S W/MAP <65. LEVOPHED 0.2MCG/KG/MIN.
[2022-09-28 04:02] LABS: Bun/Creatinine Ratio 12.2 (12.0-20.0); Calcium, Blood 8.5 mg/dL (8.5-10.1); Creatinine, Blood 1.72 mg/dL (0.40-1.00); Potassium, Blood 3.3 mmol/L (3.5-5.5)
--- NOTE | 2022-09-28 05:56 | NUR ---
SUMMARY PT A&O X4, PLEASANT AND COOPERATIVE WITH CARE. MOMENTS OF CONFUSION WHEN WOKE FROM SLEEP BUT EASILY REDIRECTED. PT HAD EPISODE OF SHORTNESS OF BREATH WHILE USING BED HINES. RR RATE REMAINED <20, SPO2 DROPPED INTO THE 80'S. PT SAT UP ON EDGE OF BED AND O2 INCREASED TO 3L. PT DENIED CHEST PAIN OR DIZZINESS. ABLE TO SIT BACK IN BED AND REST COMFORTABLY FOR THE REMAINDER OF THE SHIFT. BLOOD PRESSURES TRENDED DOWN WITH MAP IN THE 60'S. LEVOPHED RESTARTED @2MCG/KG/MIN. HR 70'S, MAP >70. PT HAS PUREWICK AND ATTENDS IN PLACE W/350 URINE OUTPUT THIS SHIFT. PT DENIES NAUSEA BUT HAS NO APPETITE. NO BM THIS SHIFT.
--- NOTE | 2022-09-28 11:50 | NUR ---
SHIFT ASSESSMENT ASSUMED CARE OF PT @ 0700, REPORT RECEIVED FROM MICHAEL LIU. PT ALERT AND ORIENTED TO HER BASELINE, FORGETFUL AT TIMES. C/O WEAKNESS BUT ASSISTING WITH TURNS, PT/OT CONSULT SCHEDULED FOR THIS AFTERNOON. LEVOPHED @ 2MCG'S, WILL ATTEMPT TO TITRATE OFF TODAY. CONTINUES TO HAVE POOR APPETITE BUT DID EAT SOME OF HER BREAKFAST. MULTIPLE LOOSE STOOLS CONTAMINATING COCCYX WOUND c SKIN BREAKDOWN. RECTAL TUBE INSERTED, PT TOLERATING WELL. PUREWICK IN PLACE.
--- NOTE | 2022-09-28 18:02 | NUR ---
SHIFT SUMMARY PT REMAINS ALERT TO HER BASELINE. LEVOPHED TITRATED OFF AROUND 1400, REMAINS OFF AT THIS TIME, MAP >70. RECTAL TUBE REMOVED @ 1320, PT NOT TOLERATING WELL AND LEAKAGE AROUND TUBE. PT DID HAVE 2 X INCONTINENT OF STOOL, CURRENTLY USING CALL LIGHT APPROPRIATELY AND USING BEDPAN. COCCYX WOUND DRESSING CHANGED MULTIPLE TIMES FROM CONTAMINATION, BARRIER CLEAM APPLIED TO AREA. PUREWICK WORKING WELL, CHANGED MULTIPLE TIMES WELL. PTS APPETITE SEEMS TO BE IMPROVING BUT ONLY EATING SMALL AMOUNTS. PTS STRENGTH IMPROVING, HOPEFULLY ABLE TO WORK WITH PHYSICAL THERAPY TOMORROW.
--- NOTE | 2022-09-28 19:15 | NUR ---
ASSUMED CARE OF PT @1900 FROM ANALY LIU. BEDSIDE REPORT. PT IS SLEEPING COMFORTABLY. 2L O2 VIA NC, RR <20, SPO2 >94%. CONTINUOUS CARDIAC MONITORING. HR 70'S, SBP 90'S, MAP >65. PUREWICK IN PLACE. RIJ PATENT W/TKO 10MLS/HR. SCD'S IN PLACE. 20GA RFA PATENT W/SALINE LOCK.
[2022-09-29 02:33] LABS: Source, Urine Foley catheter
[2022-09-29 02:36] LABS: Bilirubin, Urine Neg (Neg); Blood, Urine 3+ (Neg); Glucose Qualitative, Urine Neg (Neg); Ketones, Urine Neg (Neg); Leukocyte Esterase, Urine 2+ (Neg); Nitrite, Urine Neg (Neg); Protein, Urine 1+ (Neg); Specific Gravity, Urine 1.015 (1.003-1.022); Urobilinogen, Urine NORM (Normal)
[2022-09-29 02:42] LABS: Appearance, Urine Cloudy (Clear); Color, Urine Yellow (P-Yellow)
[2022-09-29 02:43] LABS: Amorphous Mod (0-Heavy); Bacteria Many /hpf; Red Blood Cells, Urine 0-2 /hpf (0-2); Squamous Epithelial Cells Many /hpf (Few)
[2022-09-29 04:37] LABS: Calcium, Blood 8.9 mg/dL (8.5-10.1); Creatinine, Blood 1.46 mg/dL (0.40-1.00); Potassium, Blood 3.7 mmol/L (3.5-5.5)
--- NOTE | 2022-09-29 05:52 | NUR ---
SUMMARY NEURO/PSYCH/MOBILITY: PT A&O TO SELF, PLACE, SITUATION, BUT NOT DATE. PLEASANT AND COOPERATIVE WITH CARE. PT IS WEAK BUT ABLE TO HELP W/REPOSITIONING. ABLE TO MAKE NEEDS KNOWN AND HAS APPROPRIATE CONVERSATION. PT IS VERY PAINFUL ON COCCYX AND MARCEL AREA. AFEBRILE THIS SHIFT. PERRL. RESP: PT HAS RHONCI THAT IS CLEARED W/COUGHING. 3L O2 VIA NC. RR <20, SPO2 >94%. CARDIAC: SR 70'S, SBP 90-110, MAP >65. QT REMAINS LONG. GI: PT HAD MULTIPLE LIQUID BROWN STOOLS. RECTAL TUBE PLACED. DENIES NAUSEA. ABLE TO TOLERATE AND ORAL MEDICATION. : ZAYAS CATH PLACED. NIKHIL URINE W/SEDIMENT. 250MLS OUTPUT THIS SHIFT SKIN: MARCEL AREA EXCORIATED. MEPILEX PLACED ON COCCYX PRESSURE ULCER. IV ACCESS: RIJ PATENT W/TKO. 20 GA RFA PATENT W/SALINE LOCK.
[2022-09-29 09:16] LABS: Albumin, Blood 2.8 g/dL (3.4-5.0); Bilirubin, Total 1.4 mg/dL (0.1-1.0); Bun/Creatinine Ratio 11.1 (12.0-20.0); Calcium, Blood 8.8 mg/dL (8.5-10.1); Creatinine, Blood 1.44 mg/dL (0.40-1.00); Globulin, Blood 2.8 g/dL (2.2-4.0); Total Protein, Blood 5.6 g/dL (6.4-8.2)
--- NOTE | 2022-09-29 09:30 | NUR ---
SHIFT ASSESSMENT ASSUMED CARE OF PT @ 0700, REPORT RECEIVED FROM ALEXA RODRIGUEZ. PT ALERT AND ORIENTED TO PERSON, PLACE, AND EVENT WHICH IS HER BASELINE. REMEMBERS THIS NURSE FROM PRIOR DAYS. FOLLOWING COMMANDS, ABLE TO AMBULATE TO BEDSIDE CHAIR WITH WALKER AND 1 PERSON SBA. COCCYX WOUND APPEARS BETTER, NEW MEPILEX PLACED, WILL HAVE WOUND CARE NURSE ASSESS TODAY. RECTAL TUBE REMAINS IN PLACE WITH LOOSE BROWN STOOL. ZAYAS CATH PATENT, DRAINING YELLOW URINE. PT TOLERATING PO INTAKE BUT CONTINUES TO EAT VERY SMALL PORTIONS, DENIES NAUSEA AT THIS TIME.
--- NOTE | 2022-09-29 14:34 | NUR ---
Ethics consult order received and processed. Advance care planning instruments reviewed and analyzed per request. The principals designation of health care representation form is not legally valid or binding. [employer] standards require two republican attestation, or as an alternative measure, the enagement of a certified notary to activate the instrument. While their is signatory support provided in the attestation gunderson, the republican completing the document, who is also the designated MPOA, is functioning as one of the two required witnesses. This constitutes a conflict of interest and is therefore disallowed by [place] law. Until a legitimate assignment occurs, per ORS 127.635, the principals daughter, by legal default, must be considered the proxy medical decision maker. This of course only applies, if and when the principal is herself incapacitated. Ultimately, if the principal is displaying stable mentation, given her tenuous health, she should be strongly encouraged to complete a standard Advance Directive. Palliative care has agreed to f/u directly to ascertain level of interest and capacity to pursue this objective. Thank you for this consult. Guanaco Macdonald, PhD, [facility]
--- NOTE | 2022-09-29 16:51 | NUR ---
WOUND CARE PT WITH WHAT APPEARS TO BE INCONTINENCE-ASSOCIATED DERMATITIS TO BL GLUTEAL CLEFT WITH UNSTABLE PI TO COCCYX. PT HAS RECTAL TUBE IN PLACE FOR LOOSE STOOLS. RECOMMEND NICKEL THICK BARRIER CREAM/ANTFUNGAL POWDER 2-3 TIMES DAILY. WITH OFFLOADING.
--- NOTE | 2022-09-29 18:06 | NUR ---
SHIFT SUMMARY PT DID WELL TODAY. WORKED WITH PHYSICAL THERAPY, 1 PERSON SBA WITH WALKER TO CHAIR AND BED. PT DENIED ANY DIZZINESS/ SOB. PT STATES SHE IS FEELING A LITTLE BETTER TODAY BUT THINKS SHE HAS A YEAST INFECTION, ORDERS FOR PO ANTIFUNGALS TO START TOMORROW. STILL ONLY EATING SMALL PORTIONS BUT NOT NAUSEATED. RECTAL TUBE DRAINING LOOSE BROWN STOOL. ZAYAS CATH PATENT WITH NIKHIL URINE. WOUND CARE NURSE CONSULTED AND PLACED INSTRUCTIONS FOR TREATMENT, SEE WOUND NURSE NOTE. REPORT GIVEN TO PCU ROOM 11 NURSE.
--- NOTE | 2022-09-29 18:56 | NUR ---
After lengthy conversation, determined pt is able to make her wants and needs known at this time. She is alert and oriented x's 3. She knows she has chosen her boyfriend/CG Luis as her primary decision maker. However, she then clarified and stated she wants Luis and her daughter Astrid to "decide together". I explained this is ok, but if they disagree, we would default to Astrid, because the forms filled out by Luis are not complete or properly filled out. Will notify nursing staff and Guanaco lopez of this in the am.
[2022-09-30 04:41] LABS: BASOPHILS ABSOLUTE AUTO 0.04 K/mm3 (0.00-0.23); BASOPHILS PERCENT AUTO 1 % (0-2); EOSINOPHILS ABSOLUTE AUTO 0.37 K/mm3 (0.00-0.68); EOSINOPHILS PERCENT AUTO 5 % (0-6); Hematocrit 27.2 % (33.0-51.0); Hemoglobin 9.1 g/dL (11.5-16.0); IMMATURE GRAN ABSOLUTE AUTO 0.02 K/mm3 (0.00-0.10); IMMATURE GRAN PERCENT AUTO 0 % (0-1); LYMPHOCYTES PERCENT AUTO 19 % (21-46); MONOCYTES ABSOLUTE AUTO 1.21 K/mm3 (0.16-1.47); MONOCYTES PERCENT AUTO 17 % (4-13); Mean Corpuscular HGB 29.7 pg (26.0-34.0); Mean Corpuscular HGB Conc 33.5 g/dL (31.5-36.5); Mean Corpuscular Volume 89 fL (80-100); Mean Platelet Volume 10.3 fL (9.1-12.4); NEUTROPHILS ABSOLUTE AUTO 4.18 K/mm3 (1.96-9.15); NEUTROPHILS PERCENT AUTO 58 % (41-73); Platelet Count 107 K/mm3 (150-400); RDW Coefficient Variation 16.1 % (11.7-14.2); RDW Standard Deviation 52.2 fL (35.1-46.3); Red Blood Cell Count 3.06 M/mm3 (3.80-5.20); White Blood Cell Count 7.22 K/mm3 (4.00-11.30)
[2022-09-30 05:03] LABS: Albumin, Blood 2.4 g/dL (3.4-5.0); Albumin/Globulin Ratio 0.8 (0.8-1.8); Bilirubin, Total 1.3 mg/dL (0.1-1.0); Calcium, Blood 8.6 mg/dL (8.5-10.1); Creatinine, Blood 1.25 mg/dL (0.40-1.00); Potassium, Blood 3.5 mmol/L (3.5-5.5); Total Protein, Blood 5.4 g/dL (6.4-8.2)
--- NOTE | 2022-09-30 06:47 | NUR ---
SHIFT SUMMARY: A&OX3, ABLE TO MAKE NEEDS KNOWN. EDUCATION GIVEN DUE TO PT REPORTING SHE WAS UNSURE WHAT CAUSED HER WOUNDS ON HER BUTTOCKS. WOUND CARE PERFORMED, PT COMPLAINTING OF PAIN WITH WOUND CARE. PT MEDICATED FOR PAIN WITH PRN PAIN MEDICATION, SEE EMAR. ZAYAS CATHETER DRAINING CLEAR, YELLOW URINE TO GRAVITY. RECTAL TUBE IN PLACE DRAINING LIQUID GREEN STOOL. NO ACUTE CHANGES NOTED DURING SHIFT.
--- NOTE | 2022-09-30 14:42 | NUR ---
Transfer note Pt alert, oriented x3; calm and cooperative with care. Pt resting in bed, up in chair this am. Pt reporting pain to coccyx, notified Dr Marie that pt pain is not controll, requested home dosing, new order placed. Pt denies chest pain/pressure, sob, nausea, and dizziness. Bed bath this am, isadora care/sewell care completed, rectal tube repositioned. Tele this am sinus 90's, new orders for no tele, bp stable on midodrine. Spo2 >90% on ra, breathing even and unlabored. Central line removed, pt laid flat, pt instructed to bare down, petrolium gauze in place, line removed, pressure held, pt remained flat for 30 minutes. No other acute changes. Report given to rn assuming care of patient. Pt transfered to room at 1456.
--- NOTE | 2022-09-30 15:34 | NUR ---
PCU TRANSFER Patient AOx4. 2- RN skin checked performed, sewell in place draining to gravity & rectal tube in place. Vitals stable.
--- NOTE | 2022-10-01 04:44 | NUR ---
SHIFT SUMMARY NO OVERNIGHT EVENTS. BP STABLE. PT ORIENTED X3/4 AT BEGINNING OF SHIFT, BECOMING MORE FORGETFUL/CONFUSED SHIFT WENT ON. RECTAL TUBE IN PLACE, LEAKING SLIGHTLY. COCCYX EXCORIATED/STAGE 3 ULCER, PER WOUND CARE ORDER APPLY CREAM AND POWDER. ZAYAS CATHETER IN PLACE, DRAINING WELL. CALL LIGHT IN REACH.
[2022-10-01 08:52] LABS: BASOPHILS ABSOLUTE AUTO 0.06 K/mm3 (0.00-0.23); BASOPHILS PERCENT AUTO 1 % (0-2); EOSINOPHILS ABSOLUTE AUTO 0.46 K/mm3 (0.00-0.68); EOSINOPHILS PERCENT AUTO 5 % (0-6); Hematocrit 28.3 % (33.0-51.0); Hemoglobin 9.6 g/dL (11.5-16.0); IMMATURE GRAN ABSOLUTE AUTO 0.02 K/mm3 (0.00-0.10); IMMATURE GRAN PERCENT AUTO 0 % (0-1); LYMPHOCYTES ABSOLUTE AUTO 1.64 K/mm3 (0.84-5.20); LYMPHOCYTES PERCENT AUTO 19 % (21-46); MONOCYTES PERCENT AUTO 17 % (4-13); Mean Corpuscular HGB 30.1 pg (26.0-34.0); Mean Corpuscular HGB Conc 33.9 g/dL (31.5-36.5); Mean Corpuscular Volume 89 fL (80-100); Mean Platelet Volume 10.5 fL (9.1-12.4); NEUTROPHILS ABSOLUTE AUTO 4.93 K/mm3 (1.96-9.15); NEUTROPHILS PERCENT AUTO 57 % (41-73); Platelet Count 109 K/mm3 (150-400); RDW Coefficient Variation 16.1 % (11.7-14.2); RDW Standard Deviation 51.7 fL (35.1-46.3); Red Blood Cell Count 3.19 M/mm3 (3.80-5.20); White Blood Cell Count 8.61 K/mm3 (4.00-11.30)
[2022-10-01 09:06] LABS: Bun/Creatinine Ratio 8.6 (12.0-20.0); Calcium, Blood 8.5 mg/dL (8.5-10.1); Creatinine, Blood 1.05 mg/dL (0.40-1.00); Potassium, Blood 3.4 mmol/L (3.5-5.5)
--- NOTE | 2022-10-01 10:04 | NUR ---
WOUND CARE PERFORMED PER ORDERS ON STAGE 3 ON COCCYX. SACRAL ALLEVYN PLACED FOR PROTECTION.
--- NOTE | 2022-10-01 18:22 | NUR ---
SHIFT SUMMARY-PT AAOX2-3 THIS SHIFT. PT VERY FORGETFUL. PAIN CONTROLLED WELL.
[2022-10-02 05:56] LABS: BASOPHILS ABSOLUTE AUTO 0.05 K/mm3 (0.00-0.23); BASOPHILS PERCENT AUTO 1 % (0-2); EOSINOPHILS ABSOLUTE AUTO 0.41 K/mm3 (0.00-0.68); EOSINOPHILS PERCENT AUTO 5 % (0-6); Hemoglobin 9.9 g/dL (11.5-16.0); IMMATURE GRAN ABSOLUTE AUTO 0.03 K/mm3 (0.00-0.10); IMMATURE GRAN PERCENT AUTO 0 % (0-1); LYMPHOCYTES ABSOLUTE AUTO 1.56 K/mm3 (0.84-5.20); LYMPHOCYTES PERCENT AUTO 20 % (21-46); MONOCYTES ABSOLUTE AUTO 1.44 K/mm3 (0.16-1.47); MONOCYTES PERCENT AUTO 18 % (4-13); Mean Corpuscular HGB 29.9 pg (26.0-34.0); Mean Corpuscular HGB Conc 34.1 g/dL (31.5-36.5); Mean Corpuscular Volume 88 fL (80-100); Mean Platelet Volume 10.2 fL (9.1-12.4); NEUTROPHILS ABSOLUTE AUTO 4.49 K/mm3 (1.96-9.15); NEUTROPHILS PERCENT AUTO 56 % (41-73); Platelet Count 101 K/mm3 (150-400); RDW Coefficient Variation 16.4 % (11.7-14.2); RDW Standard Deviation 51.3 fL (35.1-46.3); Red Blood Cell Count 3.31 M/mm3 (3.80-5.20); White Blood Cell Count 7.98 K/mm3 (4.00-11.30)
[2022-10-02 06:18] LABS: Bun/Creatinine Ratio 8.2 (12.0-20.0); Calcium, Blood 8.4 mg/dL (8.5-10.1); Creatinine, Blood 1.1 mg/dL (0.40-1.00); Potassium, Blood 3.4 mmol/L (3.5-5.5)
--- NOTE | 2022-10-02 07:07 | NUR ---
AUTOMATIC PRESSER SUMMARY: A&Ox4. PLEASANT AND COOPERATIVE WITH CARE. CALLS APPROPRIATELY MOST OF THE TIME AND IS ABLE TO COMMUNICATE NEEDS. HAD THREE EPSIDOES FO WHAT HAS BEEN SUGGESTED SLEEP PARALYSIS WHERE SHE WILL WAKE UP SHAKING, FEELING LIKE SHE IS UNABLE TO YELL FOR HELP. AT THIS POINT, SHE WILL YELL INTO THE HALLWAY FOR HELP. THIS PEAKS HER ANXIETY AND SHE KEPT STATING SHE DID NOT WANT TO BE ALONE. LABS DRAWN THIS AM; NO CRITICAL VALUES REPORTED. ZAYAS AND RECTAL TUBE IN PLACE; RECTAL TUBE LEAKING SOME AND STAFF CONTINUE WITH Q2H CHECKS. BANDAGES ON SACRUM INTACT. QD SMOKER. WONDERS IF "EPISODES" ARE R/T NICOTINE WITHDRAWL AND WOULD LIKE TO DISCUSS A NICOTINE REPLACEMENT WITH PROVIDER IN SPITE OF HAVING NOT HAD A CIGARETTE x8 DAYS. ANTICIPATE DC TO SNF. REPORT TO ONCOMING RN.
[2022-10-02] MEDS ORDERED: ACET325 PO (11:29)
[2022-10-02] MEDS ORDERED: NICO21TP TOP (11:30)
[2022-10-02] MEDS ORDERED: VISBIOME 112.51 EACH PO (11:30)
--- NOTE | 2022-10-02 16:24 | NUR ---
SHIFT SUMMARY NO ACUTE CHANGES THIS SHIFT. PT AOX4 WITH SOME BOUTS OF CONFUSION. PT'S DRESSING WAS CHANGED ON HER COCCYX, FOLLOWED THE WOUND CENTER ORDERS. MEDICATED FOR PAIN PER THE EMAR. PLAN WAS FOR PT TO GO TO A LOCAL SNIF BUT UNSURE IF FACILITIES CAN MANAGE RECTAL TUBE. PT WILL POSSIBLY GO TO A FACILITY IN [place] THAT CAN MANAGE A RECTAL TUBE. STATUS PENDING. PTS BOYFRIEND AND FRIEND VISITED TODAY. WILL REPORT TO ONCOMING NURSE.
--- NOTE | 2022-10-03 05:09 | NUR ---
PATIENT IS ALERT AND ORIENTED X4, WITH MILD CONFUSION WITH CARE. PATIENT STATES SHE HAS NOT BEEN OOB IN TWO MONTHS AND IS TOO WEAK IN THE TRUNK AND BLE. COCCYX/BUTTOCKS AREA IS RED, GRANULATED, OPEN, AND "GROUND BEEF LIKE" CREAM AND POWDER APPLIED WELL Q2 POSITION CHANGES/SKIN CHECKS. RECTAL TUBE IS LEAKING, BUT NOT CAUSING DISCOMFORT. FC DRAINING TO GRAVITY. VSS, AND CHRONIC PAIN TREATED PER MAR. WILL CONT TO MONITOR.
[2022-10-03 11:43] LABS: Influenza A, PCR NEGATIVE (NEGATIVE); Influenza B, PCR NEGATIVE (NEGATIVE); Resp Syncytial Virus, PCR NEGATIVE (NEGATIVE); SARS-Cov-2 (COVID-19) PCR, MMC NEGATIVE (NEGATIVE)
--- NOTE | 2022-10-03 15:15 | NUR ---
TRANSFER TO [facility]. PIV DC'D WITH CATH TIP INTACT, NO REDNESS OR SWELLING NOTED. RECTAL TUBE & F/C REMAIN, BOTH DRAINING WELL. REPORT CALLED TO MARGARET LIU. SCRIPT FOR PAIN MEDS COPIED AND COPY ON CHART, ORIGINAL PLACED IN TRANSFER PKT. PT TO [facility] VIA [facility]. TRANSPORT PERSONEL GIVEN TRANSPORT PKT.
== END 2022-10-03 14:34 | DRG 314 ==
LOC: ER 14:27 → ICUW 23:58 → PCU 09-29 18:16 → MEDS 09-30 15:05
PROVIDERS: Emergency Medicine; Internal Medicine; ADMIT Student in an Organized Health Care Education/Training Program
PROC: 3E033XZ Introduction of Vasopressor into Peripheral Vein, Percutaneous Approach (ICD-10-PCS; 2022-09-26)
PROC: 02HV33Z Insertion of Infusion Device into Superior Vena Cava, Percutaneous Approach (ICD-10-PCS; principal; 2022-09-27)
DX: I95.9 Hypotension, unspecified (principal); L89.303 Pressure ulcer of unspecified buttock, stage 3; N18.4 Chronic kidney disease, stage 4 (severe); N39.0 Urinary tract infection, site not specified; N17.9 Acute kidney failure, unspecified; E87.20 Acidosis, unspecified; K74.60 Unspecified cirrhosis of liver; E87.6 Hypokalemia; L89.159 Pressure ulcer of sacral region, unspecified stage; I12.9 Hypertensive chronic kidney disease with stage 1 through stage 4 chronic kidney disease, or unspecified chronic kidney disease; F17.210 Nicotine dependence, cigarettes, uncomplicated; F12.10 Cannabis abuse, uncomplicated; E11.22 Type 2 diabetes mellitus with diabetic chronic kidney disease; D63.1 Anemia in chronic kidney disease; K75.81 Nonalcoholic steatohepatitis (NASH); J44.9 Chronic obstructive pulmonary disease, unspecified; Z20.822 Contact with and (suspected) exposure to COVID-19; Z99.81 Dependence on supplemental oxygen; Z86.718 Personal history of other venous thrombosis and embolism; Z98.890 Other specified postprocedural states; Z90.710 Acquired absence of both cervix and uterus; Z88.2 Allergy status to sulfonamides; Z88.1 Allergy status to other antibiotic agents; Z88.8 Allergy status to other drugs, medicaments and biological substances; Z88.5 Allergy status to narcotic agent; Z91.048 Other nonmedicinal substance allergy status; Z79.899 Other long term (current) drug therapy; Z79.52 Long term (current) use of systemic steroids; Z79.01 Long term (current) use of anticoagulants; Z79.891 Long term (current) use of opiate analgesic; Z87.19 Personal history of other diseases of the digestive system; Z90.49 Acquired absence of other specified parts of digestive tract; Z79.51 Long term (current) use of inhaled steroids
CPT/HCPCS: 0241U; 36415; 36556; 51703; 70450; 71045; 72193; 76770; 80048; 80053; 81001; 82803; 82947; 83605; 83735; 83880; 84145; 84443; 84484; 85025; 85610; 87040; 87070; 87075; 87086; 87205; 93005; 93010; 94762; 96365; 96366; 96367; 96375; 97110; 97162; 97530; 99291-25; A9270; C1751; J0744; J1956; J2405; J3480; J7030; J7050; J7060; P9047; Q9967

== ENCOUNTER 2022-11-13 23:17 | Emergency (ER) | payer MEDICARE, OTHER ==
[~2022-11-13] VITALS: Ht 160 cm; Wt 63.5 kg
[~2022-11-13 23:17] MED LIST changes: +ACET325 PO; +Acerola C500 MG PO; +ECONAZOLE NIT 130 GM TP; +ESCITALOPRAM 10 MG; +IPRAT-ALBUT 0.5-3 ML; +NYSTRIT TOP; +TORS10 PO; +ZINC220 PO
[2022-11-13 23:46] LABS: Bun/Creatinine Ratio 12.2 (12.0-20.0); Calcium, Blood 8.9 mg/dL (8.5-10.1); Creatinine, Blood 1.15 mg/dL (0.40-1.00); Potassium, Blood 3.1 mmol/L (3.5-5.5)
[2022-11-14 00:10] LABS: BASOPHILS ABSOLUTE AUTO 0.05 K/mm3 (0.00-0.23); BASOPHILS PERCENT AUTO 1 % (0-2); EOSINOPHILS ABSOLUTE AUTO 0.14 K/mm3 (0.00-0.68); EOSINOPHILS PERCENT AUTO 3 % (0-6); Hematocrit 29.3 % (33.0-51.0); Hemoglobin 9.8 g/dL (11.5-16.0); IMMATURE GRAN ABSOLUTE AUTO 0.01 K/mm3 (0.00-0.10); IMMATURE GRAN PERCENT AUTO 0 % (0-1); LYMPHOCYTES ABSOLUTE AUTO 1.23 K/mm3 (0.84-5.20); LYMPHOCYTES PERCENT AUTO 26 % (21-46); MONOCYTES ABSOLUTE AUTO 0.74 K/mm3 (0.16-1.47); MONOCYTES PERCENT AUTO 15 % (4-13); Mean Corpuscular HGB Conc 33.4 g/dL (31.5-36.5); Mean Corpuscular Volume 93 fL (80-100); Mean Platelet Volume 11.7 fL (9.1-12.4); NEUTROPHILS ABSOLUTE AUTO 2.62 K/mm3 (1.96-9.15); NEUTROPHILS PERCENT AUTO 55 % (41-73); Platelet Count 103 K/mm3 (150-400); RDW Coefficient Variation 17.7 % (11.7-14.2); RDW Standard Deviation 60.3 fL (35.1-46.3); Red Blood Cell Count 3.16 M/mm3 (3.80-5.20); White Blood Cell Count 4.79 K/mm3 (4.00-11.30)
== END 2022-11-14 01:30 | disposition home or self-care (01) ==
LOC: ER 23:17
PROVIDERS: Emergency Medicine
DX: R55 Syncope and collapse (principal); I95.89 Other hypotension; E11.22 Type 2 diabetes mellitus with diabetic chronic kidney disease; N18.9 Chronic kidney disease, unspecified; I12.9 Hypertensive chronic kidney disease with stage 1 through stage 4 chronic kidney disease, or unspecified chronic kidney disease; J44.9 Chronic obstructive pulmonary disease, unspecified; F17.210 Nicotine dependence, cigarettes, uncomplicated; Z88.2 Allergy status to sulfonamides; Z88.8 Allergy status to other drugs, medicaments and biological substances; Z88.5 Allergy status to narcotic agent; Z79.899 Other long term (current) drug therapy
CPT/HCPCS: 36415; 80048; 84484; 85025; 93005; 93010; 99284-25; A9270

== ENCOUNTER 2022-11-18 13:22 | Day surgery (SDC) | payer MEDICARE, OTHER ==
[~2022-11-18] VITALS: Ht 160 cm; Wt 65.9 kg
--- NOTE | 2022-11-18 13:52 | NUR ---
11/18/22 1352 Oralia Mathews 1343 TETRACAINE TO RIGHT EYE 1344 PLEDGET TO RIGHT EYE BY [facility].NATASHA
== END 2022-11-18 15:30 | disposition home or self-care (01) ==
LOC: ORSCSDS 13:22
PROVIDERS: Ophthalmology
PROC: 08RJ3JZ Replacement of Right Lens with Synthetic Substitute, Percutaneous Approach (ICD-10-PCS; principal; 2022-11-18 14:30)
DX: E11.36 Type 2 diabetes mellitus with diabetic cataract (principal); H25.11 Age-related nuclear cataract, right eye; I25.10 Atherosclerotic heart disease of native coronary artery without angina pectoris; J44.9 Chronic obstructive pulmonary disease, unspecified; F17.210 Nicotine dependence, cigarettes, uncomplicated; K74.60 Unspecified cirrhosis of liver; E11.22 Type 2 diabetes mellitus with diabetic chronic kidney disease; I12.9 Hypertensive chronic kidney disease with stage 1 through stage 4 chronic kidney disease, or unspecified chronic kidney disease; N18.9 Chronic kidney disease, unspecified; Z79.899 Other long term (current) drug therapy
CPT/HCPCS: 82947; J2001; J2250; J3010; J3301; J7040; V2632

== ENCOUNTER 2022-11-26 14:17 | Inpatient (IN) | payer MEDICARE, OTHER ==
[~2022-11-26] VITALS: Ht 157.5 cm; Wt 61.0 kg
[~2022-11-26 14:17] MED LIST changes: +SPIR50 PO
[2022-11-26 15:34] LABS: PCO2 Arterial 45.7 mmHg (35-45); PO2 Arterial 68.2 mmHg (80-100); pH Blood Arterial 7.45 (7.35-7.45)
[2022-11-26 16:37] LABS: BASOPHILS ABSOLUTE AUTO 0.03 K/mm3 (0.00-0.23); BASOPHILS PERCENT AUTO 0 % (0-2); EOSINOPHILS ABSOLUTE AUTO 0.07 K/mm3 (0.00-0.68); EOSINOPHILS PERCENT AUTO 1 % (0-6); Hematocrit 32.3 % (33.0-51.0); IMMATURE GRAN ABSOLUTE AUTO 0.03 K/mm3 (0.00-0.10); IMMATURE GRAN PERCENT AUTO 0 % (0-1); LYMPHOCYTES ABSOLUTE AUTO 1.06 K/mm3 (0.84-5.20); LYMPHOCYTES PERCENT AUTO 15 % (21-46); MONOCYTES PERCENT AUTO 9 % (4-13); Mean Corpuscular HGB 30.8 pg (26.0-34.0); Mean Corpuscular HGB Conc 34.1 g/dL (31.5-36.5); Mean Corpuscular Volume 91 fL (80-100); Mean Platelet Volume 11.5 fL (9.1-12.4); NEUTROPHILS ABSOLUTE AUTO 5.14 K/mm3 (1.96-9.15); NEUTROPHILS PERCENT AUTO 74 % (41-73); Platelet Count 106 K/mm3 (150-400); RDW Coefficient Variation 15.9 % (11.7-14.2); RDW Standard Deviation 52.7 fL (35.1-46.3); Red Blood Cell Count 3.57 M/mm3 (3.80-5.20); White Blood Cell Count 6.93 K/mm3 (4.00-11.30)
[2022-11-26 16:55] LABS: Albumin, Blood 2.7 g/dL (3.4-5.0); Albumin/Globulin Ratio 0.7 (0.8-1.8); Bilirubin, Total 3.6 mg/dL (0.1-1.0); Bun/Creatinine Ratio 16.4 (12.0-20.0); Calcium, Blood 9.2 mg/dL (8.5-10.1); Creatinine, Blood 2.19 mg/dL (0.40-1.00); Globulin, Blood 3.9 g/dL (2.2-4.0); Potassium, Blood 3.5 mmol/L (3.5-5.5); Total Protein, Blood 6.6 g/dL (6.4-8.2)
[2022-11-26 16:58] LABS: Influenza A, PCR NEGATIVE (NEGATIVE); Influenza B, PCR NEGATIVE (NEGATIVE); Resp Syncytial Virus, PCR NEGATIVE (NEGATIVE); SARS-Cov-2 (COVID-19) PCR, MMC NEGATIVE (NEGATIVE)
[2022-11-26 20:34] LABS: Source, Urine Clean Catch
[2022-11-26 20:41] LABS: Appearance, Urine Clear (Clear); Bilirubin, Urine Neg (Neg); Blood, Urine Neg (Neg); Color, Urine Yellow (P-Yellow); Glucose Qualitative, Urine Neg (Neg); Ketones, Urine Neg (Neg); Leukocyte Esterase, Urine 1+ (Neg); Nitrite, Urine Pos (Neg); Protein, Urine Neg (Neg); Urobilinogen, Urine NORM (Normal)
[2022-11-26 20:52] VITALS: BP 102/64
[2022-11-26] MEDS ORDERED: SOAANZ20 M3 PO (20:55)
[2022-11-26 21:04] LABS: Bacteria Many /hpf; Red Blood Cells, Urine 0-2 /hpf (0-2); Squamous Epithelial Cells Few /hpf (Few)
[2022-11-27 03:13] VITALS: BP 88/54
--- NOTE | 2022-11-27 04:55 | NUR ---
SUMMARY: PATIENT ADMITTED OVERNIGHT FOR FRED. 24 HOUR URINE COLLECTION ORDERED. NOTIFIED DR. HARRISON PATIENT WAS BEDBOUND AND REPORTS INCONTINENCE. ZAYAS ORDERED AND PLACED FOR 24 HOUR URINE COLLECTION, STARTED AT 2200. ICE PLACED ON CATH BAG AND COLLECTION CONTAINER. PATIENT HAD STAGE 3 ULCER TO BUTTOCKS AND WOUND ON BACK. PICS TAKEN, ZINC CREAM APPLIED AND MEPELEX PLACED ON WOUNDS. PATIENT USED BEDPAN OVERNIGHT. BP LOW THIS MORNING. NOTIFIED HOSPITALIST OF LOW BP MAP WAS 65, REQUESTED TO GIVE MORNING DOSE OF MIDRODRINE EARLY THEY APPROVED. PATIENT RESING COMFORTABLY TURNED Q2HR IN BED. CALL LIGHT IN REACH BED ALARM ON.
[2022-11-27 05:39] LABS: BASOPHILS ABSOLUTE AUTO 0.04 K/mm3 (0.00-0.23); BASOPHILS PERCENT AUTO 1 % (0-2); EOSINOPHILS ABSOLUTE AUTO 0.09 K/mm3 (0.00-0.68); EOSINOPHILS PERCENT AUTO 1 % (0-6); Hematocrit 28.9 % (33.0-51.0); Hemoglobin 9.9 g/dL (11.5-16.0); IMMATURE GRAN ABSOLUTE AUTO 0.02 K/mm3 (0.00-0.10); IMMATURE GRAN PERCENT AUTO 0 % (0-1); LYMPHOCYTES ABSOLUTE AUTO 1.23 K/mm3 (0.84-5.20); LYMPHOCYTES PERCENT AUTO 18 % (21-46); MONOCYTES ABSOLUTE AUTO 0.48 K/mm3 (0.16-1.47); MONOCYTES PERCENT AUTO 7 % (4-13); Mean Corpuscular HGB 30.7 pg (26.0-34.0); Mean Corpuscular HGB Conc 34.3 g/dL (31.5-36.5); Mean Corpuscular Volume 90 fL (80-100); Mean Platelet Volume 11.5 fL (9.1-12.4); NEUTROPHILS ABSOLUTE AUTO 4.95 K/mm3 (1.96-9.15); NEUTROPHILS PERCENT AUTO 73 % (41-73); Platelet Count 92 K/mm3 (150-400); RDW Coefficient Variation 15.8 % (11.7-14.2); RDW Standard Deviation 52.1 fL (35.1-46.3); Red Blood Cell Count 3.23 M/mm3 (3.80-5.20); White Blood Cell Count 6.81 K/mm3 (4.00-11.30)
[2022-11-27 06:20] LABS: Albumin, Blood 2.4 g/dL (3.4-5.0); Albumin/Globulin Ratio 0.6 (0.8-1.8); Bilirubin, Total 3.9 mg/dL (0.1-1.0); Bun/Creatinine Ratio 17.2 (12.0-20.0); Calcium, Blood 8.6 mg/dL (8.5-10.1); Creatinine, Blood 2.09 mg/dL (0.40-1.00); Globulin, Blood 3.7 g/dL (2.2-4.0); Magnesium, Blood 1.5 mg/dL (1.6-2.4); Phosphorus, Blood 3.3 mg/dL (2.5-4.9); Potassium, Blood 2.8 mmol/L (3.5-5.5); Total Protein, Blood 6.1 g/dL (6.4-8.2)
[2022-11-27 07:30] VITALS: BP 81/49
--- NOTE | 2022-11-27 08:36 | NUR ---
IV ACCESS PT HAS 22G RIGHT FA FROM ER. FLUSHED EASILY BUT STARTED BURNING WITH Matthew MANSFIELD. CALLED CHARGE NURSE TO EVALUATE FOR POWER GLIDE. KERVIN RN LOOKED AT BOTH UE. SHE DID NOT SEE AN ACCESSABLE VEIN. ATTEMPTED WITH ULTRASOUND X2 TO PLACE ADDITIONAL IV ACCESS. UNSUCCESSFUL. ANOTHER NURSE IS GOING TO COME AND EVALUATE FOR VASCULAR ACCESS. CONTINUE POC.
--- NOTE | 2022-11-27 10:46 | NUR ---
IV ACCESS POWER GLIDE PLACED LEFT UE. POTASSIUM, MAGNESIUM infusing through power glide. Albumin infusing through left FA iv site. Continue POC.
[2022-11-27 13:14] VITALS: BP 97/60
[2022-11-27] MEDS ORDERED: TIZA4 PO (14:14)
[2022-11-27] MEDS ORDERED: Phenergan25 M1 PO (14:16)
[2022-11-27 15:03] LABS: Potassium, Blood 3.8 mmol/L (3.5-5.5)
--- NOTE | 2022-11-27 15:08 | NUR ---
LAB MG And K called to dr Lopez. No orders. Continue poc.
[2022-11-27 16:26] VITALS: BP 81/53
--- NOTE | 2022-11-27 16:43 | NUR ---
NOTE PT RESTING. LAB RESULTS CALLED TO DR HARRISON ORDRED. POWER GLIDE DRAWING WELL. POOR APPETITE. MEDICATEDX1. REMINDED HER TO TURN. SHE IS INDEPENDNET IN BED. SUPPORTED WITH PILLOWS. 24 HOUR URINE ON ICE. CONTINUE POC.
[2022-11-27 19:31] VITALS: BP 123/103
[2022-11-27 22:33] LABS: Protein, Urine Quantitative 8.5 mg/dL (0.0-11.9)
[2022-11-28 03:53] VITALS: BP 88/53
[2022-11-28 05:08] LABS: Hematocrit 25.8 % (33.0-51.0)
--- NOTE | 2022-11-28 05:22 | NUR ---
Summary: Patient Aox3-4. 24 hour urine collection completed at 2200. Sewell then removed and urine taken to lab. Patient was able to void with pure wic after sewell removal. Turned patient in bed Q2hr. VSS. Call light in reach. BP low this morning. MD aware of chronic hypotension. Call light in reach. Bed alarm on. Patient calls appropriately.
[2022-11-28 05:31] LABS: Albumin, Blood 2.5 g/dL (3.4-5.0); Anion Gap 5 mmol/L (6-16); Blood Urea Nitrogen 34 mg/dL (8-24); Bun/Creatinine Ratio 18.2 (12.0-20.0); CO2, Blood 32 mmol/L (21-32); Calcium, Blood 8.8 mg/dL (8.5-10.1); Chloride, Blood 99 mmol/L (98-108); Creatinine, Blood 1.87 mg/dL (0.40-1.00); Glomerular Filtration Rate 29 (60-); Glucose, Blood 66 mg/dL (70-99); Magnesium, Blood 1.8 mg/dL (1.6-2.4); Phosphorus, Blood 2.7 mg/dL (2.5-4.9); Potassium, Blood 3.8 mmol/L (3.5-5.5); Sodium, Blood 136 mmol/L (136-145)
[2022-11-28 07:28] VITALS: BP 87/55
[2022-11-28 08:52] VITALS: BP 90/56
[2022-11-28 10:50] LABS: International Normalized Ratio 1.75; Prothrombin Time Results 17.8 Sec (9.7-11.5)
[2022-11-28 13:14] VITALS: BP 88/58
[2022-11-28] MEDS ORDERED: BUME2 PO (14:12)
--- NOTE | 2022-11-28 14:37 | NUR ---
SHIFT/DISCHARGE SUMMARY: PATIENT A&OX3-4. SLOW TO RESPOND AND SOME FORGETFULNESS. PATIENT CALM, PLEASANT AND COOPERATIVE c CARE. USES CALL LIGHT APPROPRIATELY AND ABLE TO MAKE NEEDS KNOWN. PATIENT WORK c PT MOBILITY THIS AM. PT RECOMMENDED HH SERVICES. PATIENT AMBULATES TO BATHROOM c 1 ASSIST, FWW AND GAITBELT. DENIES CP/ PRESSURE, N/V, SOB. PATIENT RECEIVED SHOWER AND LINEN CHANGED THIS SHIFT. PATIENT IS CONTIN/INCOTIN, ATTENDS INPLACE. PATIENT TOLERATED SITTING UP IN THE RECLINER CHAIR FOR ABOUT 3 HRS TODAY. VITAL SIGNS REVIEWED. RECEIVED SCHEDULED MEDS PER EMAR. PATIENT REPORTS PAIN TO SHOULDER AND BACK. MEDICATED X1 c OXYCODONE. PATIENT REPORTS OF ADEQUATE RELIEF. IV TO R FOREARM AND POWERGLIDE TO EVIE WAS DC'D. PATIENT DISCHARGE HOME. DISCHARGE INSTRUCTION PACKET GIVEN TO PATIENT. EDUCATE PATIENT AND SIG OTHER REGARDING PATIENT ADMITTING DX, S/S, TX, AND NEW PRESCRIBED MEDICATIONS. PATIENT AND SPOUSE STATED UNDERSTANDING AND NO FURTHER QUESTIONS. RX WAS FAXED TO PATIENT PREFERRED PHARMACY. ALL PATIENT PERSONAL BELONGINGS WERE SENT HOME c THE PATIENT. PATIENT LEFT THE ROOM AT AROUND 1436. PATIENT WAS TRANSPORTED VIA WHEELCHAIR BY PAYABLE REPRESENTATIVE STAFF RADHA LOPEZ TO PATIENT SIG OTHER PRIVATE VEHICLE.
== END 2022-11-28 14:38 | disposition home health service (06) | DRG 682 ==
LOC: ER 14:17 → MEDS 14:18
PROVIDERS: Emergency Medicine; Internal Medicine; Internal Medicine Nephrology; Nurse Practitioner Acute Care; ADMIT Internal Medicine
PROC: 4A033R1 Measurement of Arterial Saturation, Peripheral, Percutaneous Approach (ICD-10-PCS; principal; 2022-11-27)
DX: N17.9 Acute kidney failure, unspecified (principal); G92.8 Other toxic encephalopathy; L89.303 Pressure ulcer of unspecified buttock, stage 3; I13.0 Hypertensive heart and chronic kidney disease with heart failure and stage 1 through stage 4 chronic kidney disease, or unspecified chronic kidney disease; E44.0 Moderate protein-calorie malnutrition; J96.11 Chronic respiratory failure with hypoxia; N18.30 Chronic kidney disease, stage 3 unspecified; K74.60 Unspecified cirrhosis of liver; E87.6 Hypokalemia; E87.70 Fluid overload, unspecified; Z51.5 Encounter for palliative care; E11.22 Type 2 diabetes mellitus with diabetic chronic kidney disease; K75.81 Nonalcoholic steatohepatitis (NASH); J44.9 Chronic obstructive pulmonary disease, unspecified; D63.1 Anemia in chronic kidney disease; I95.1 Orthostatic hypotension; I50.9 Heart failure, unspecified; R62.7 Adult failure to thrive; E78.5 Hyperlipidemia, unspecified; K21.9 Gastro-esophageal reflux disease without esophagitis; E88.09 Other disorders of plasma-protein metabolism, not elsewhere classified; E80.6 Other disorders of bilirubin metabolism; E83.42 Hypomagnesemia; R94.31 Abnormal electrocardiogram [ECG] [EKG]; D69.6 Thrombocytopenia, unspecified; Z20.822 Contact with and (suspected) exposure to COVID-19; B96.1 Klebsiella pneumoniae [K. pneumoniae] as the cause of diseases classified elsewhere; Z88.2 Allergy status to sulfonamides; Z88.1 Allergy status to other antibiotic agents; Z68.22 Body mass index [BMI] 22.0-22.9, adult; Z88.8 Allergy status to other drugs, medicaments and biological substances; Z87.440 Personal history of urinary (tract) infections; Z86.718 Personal history of other venous thrombosis and embolism; Z91.048 Other nonmedicinal substance allergy status; Z99.81 Dependence on supplemental oxygen; Z88.5 Allergy status to narcotic agent; Z98.890 Other specified postprocedural states; Z90.710 Acquired absence of both cervix and uterus; Z90.49 Acquired absence of other specified parts of digestive tract; Z79.51 Long term (current) use of inhaled steroids; Z79.899 Other long term (current) drug therapy; Z79.52 Long term (current) use of systemic steroids; Z87.891 Personal history of nicotine dependence; Z79.891 Long term (current) use of opiate analgesic; Z87.19 Personal history of other diseases of the digestive system
CPT/HCPCS: 0241U; 36415; 36600; 51702; 71046; 74150; 76705; 76770; 80053; 80069; 81001; 81050; 82140; 82803; 83690; 83735; 83880; 84100; 84132; 84156; 84300; 85014; 85018; 85025; 85610; 87077; 87086; 87186; 93005; 93010; 93306; 94640; 94664; 94760; 96360; 96361; 96372; 96374; 97116; 97162; 97530; 99285-25; A9270; C1751; G0378; J1644; J3475; J3480; J7050; P9047; P9612

== ENCOUNTER 2022-11-30 13:58 | Inpatient (IN) | payer MEDICARE, OTHER ==
[~2022-11-30] VITALS: Ht 162.6 cm; Wt 60.8 kg
[~2022-11-30 13:58] MED LIST changes: +BUME2 PO; +SOAANZ20 M3 PO; +TIZA4 PO
[2022-11-30 16:12] LABS: PCO2 Venous 43 mmHg (38-42); pH Blood Venous 7.52 (7.34-7.37)
[2022-11-30 16:13] LABS: Base Excess Venous 11.9 mmol/L; Bicarbonate Venous 34.3 mmol/L (24.0-30.0)
[2022-11-30 16:15] LABS: BASOPHILS ABSOLUTE AUTO 0.01 K/mm3 (0.00-0.23); BASOPHILS PERCENT AUTO 0 % (0-2); EOSINOPHILS ABSOLUTE AUTO 0.02 K/mm3 (0.00-0.68); EOSINOPHILS PERCENT AUTO 0 % (0-6); Hematocrit 27.1 % (33.0-51.0); Hemoglobin 9.4 g/dL (11.5-16.0); IMMATURE GRAN ABSOLUTE AUTO 0.04 K/mm3 (0.00-0.10); IMMATURE GRAN PERCENT AUTO 0 % (0-1); LYMPHOCYTES PERCENT AUTO 13 % (21-46); MONOCYTES ABSOLUTE AUTO 0.71 K/mm3 (0.16-1.47); MONOCYTES PERCENT AUTO 8 % (4-13); Mean Corpuscular HGB 30.5 pg (26.0-34.0); Mean Corpuscular HGB Conc 34.7 g/dL (31.5-36.5); Mean Corpuscular Volume 88 fL (80-100); Mean Platelet Volume 12.4 fL (9.1-12.4); NEUTROPHILS ABSOLUTE AUTO 7.14 K/mm3 (1.96-9.15); NEUTROPHILS PERCENT AUTO 78 % (41-73); NRBC ABSOLUTE 0.05 K/mm3 (0.00-0.02); NRBC Auto 0.5 /100 WBC (0.0-0.2); Platelet Count 75 K/mm3 (150-400); RDW Coefficient Variation 15.6 % (11.7-14.2); RDW Standard Deviation 50.6 fL (35.1-46.3); Red Blood Cell Count 3.08 M/mm3 (3.80-5.20); White Blood Cell Count 9.12 K/mm3 (4.00-11.30)
[2022-11-30 16:35] LABS: Ethanol (Alcohol), Blood, Med <3 mg/dL
[2022-11-30 16:38] LABS: Alanine Aminotransfer (ALT/SGP 53 U/L (12-78); Albumin, Blood 3.2 g/dL (3.4-5.0); Albumin/Globulin Ratio 0.9 (0.8-1.8); Alk Phos 183 U/L (50-136); Anion Gap 8 mmol/L (6-16); Aspartate Aminotrans (AST/SGOT 144 U/L (12-37); Bilirubin, Total 10.6 mg/dL (0.1-1.0); Blood Urea Nitrogen 39 mg/dL (8-24); Bun/Creatinine Ratio 19.2 (12.0-20.0); CO2, Blood 33 mmol/L (21-32); Calcium, Blood 9.4 mg/dL (8.5-10.1); Chloride, Blood 99 mmol/L (98-108); Creatinine, Blood 2.03 mg/dL (0.40-1.00); Globulin, Blood 3.6 g/dL (2.2-4.0); Glomerular Filtration Rate 26 (60-); Glucose, Blood 93 mg/dL (70-99); Potassium, Blood 3.9 mmol/L (3.5-5.5); Sodium, Blood 140 mmol/L (136-145); Total Protein, Blood 6.8 g/dL (6.4-8.2)
[2022-11-30 19:57] LABS: International Normalized Ratio 1.86; Prothrombin Time Results 18.9 Sec (9.7-11.5)
--- NOTE | 2022-11-30 23:48 | NUR ---
TRANSFER OF CARE NOTE RECEIVED REPORT ON PT [facility], PT SHORTLY ARRIVED IN PCU 20 AT ~ 2108 ON 11/30/22. ARRIVED ALERT, BUT ONLY ORIENTATED TO SELF. PT SPONTANOUSLY LOOKS AROUND, BUT ONLY ANSWERS SOME "YES" OR "NO" QUESTIONS. OTHER THEN SOME RESPONSES, PT HAS BEEN NON-VERBAL. OVERAL SKIN APPEARS JAUNDICE WITH YELLOW SCLERA PRESENT. BS PRESENT AND ABD IS NONTENDER. PRESSURE ULCER PRESENT UPON ADMISSION WITH PURENTLY EXUDATE. SEE PIC IN CHART. MEPLILEX CHANGED DUE TO IT BEING SATURATIED WELL HER ATTENDS WITH URINE. ARRIVED WITHOUT O2 WITH NO SOB OR DYSPNEA NOTED UPON ARRIVAL. NO REPORTS OF CP OR PRESSURE. SPOKE WITH PT'S SIGNIFICANT OTHER (ARSLAN) ON PHONE ABOUT PT'S CONDITION. SIGNIFICANT OTHER STATES "I HAVE A FORM STATING SHE IS TO BE DNI AND DOES NOT WANT ANY FDC LIFE SUPPORT". H&P LISTS PT'S DAUGHTER HEALTH CARE PROXY. SIGNFICANT OTHER INTRUCTED TO BRING ANY ADVANCED DIRECTIVES OR POLST FORMS INTO HOSPITAL IN THE AM. WILL CONTINUE TO PROCESS MD ORDERS. LELIA WILSON AT THIS TIME.
[2022-12-01 00:07] LABS: Source, Urine Straight Cath
[2022-12-01 00:12] LABS: Bilirubin, Urine Neg (Neg); Blood, Urine 2+ (Neg); Glucose Qualitative, Urine Neg (Neg); Ketones, Urine 1+ (Neg); Leukocyte Esterase, Urine 1+ (Neg); Nitrite, Urine Neg (Neg); Protein, Urine Neg (Neg); Urobilinogen, Urine NORM (Normal)
[2022-12-01 00:21] LABS: Appearance, Urine Hazy (Clear); Color, Urine Yellow (P-Yellow)
[2022-12-01 00:22] LABS: Bacteria Many /hpf; Red Blood Cells, Urine 0-2 /hpf (0-2); Squamous Epithelial Cells Few /hpf (Few)
[2022-12-01 00:25] LABS: U Amphetamine Screen Not Detected; U Barbituate Screen Not Detected; U Benzodiazapine Screen Not Detected; U Buprenorphine Screen Not Detected; U Cannabinoids Screen Not Detected; U Cocaine Screen Not Detected; U Methadone Screen Not Detected; U Methamphetamine Screen Not Detected; U Opiates Screen Not Detected; U Oxycodone Screen Not Detected; U Phencyclidine Screen Not Detected; U Propoxyphene Screen Not Detected
--- NOTE | 2022-12-01 00:58 | NUR ---
UPDATE FOUND PT'S HEALTHCARE PROXY FORM. FORM IN PT'S CHART. NO NEW ORDERS AT THIS TIME
[2022-12-01 05:05] LABS: BASOPHILS ABSOLUTE AUTO 0.02 K/mm3 (0.00-0.23); BASOPHILS PERCENT AUTO 0 % (0-2); EOSINOPHILS ABSOLUTE AUTO 0.05 K/mm3 (0.00-0.68); EOSINOPHILS PERCENT AUTO 1 % (0-6); Hematocrit 23.9 % (33.0-51.0); Hemoglobin 8.1 g/dL (11.5-16.0); IMMATURE GRAN ABSOLUTE AUTO 0.04 K/mm3 (0.00-0.10); IMMATURE GRAN PERCENT AUTO 1 % (0-1); LYMPHOCYTES ABSOLUTE AUTO 1.46 K/mm3 (0.84-5.20); LYMPHOCYTES PERCENT AUTO 17 % (21-46); MONOCYTES ABSOLUTE AUTO 0.84 K/mm3 (0.16-1.47); MONOCYTES PERCENT AUTO 10 % (4-13); Mean Corpuscular HGB Conc 33.9 g/dL (31.5-36.5); Mean Corpuscular Volume 89 fL (80-100); Mean Platelet Volume 12.1 fL (9.1-12.4); NEUTROPHILS ABSOLUTE AUTO 6.27 K/mm3 (1.96-9.15); NEUTROPHILS PERCENT AUTO 72 % (41-73); NRBC ABSOLUTE 0.05 K/mm3 (0.00-0.02); NRBC Auto 0.6 /100 WBC (0.0-0.2); Platelet Count 57 K/mm3 (150-400); RDW Coefficient Variation 15.5 % (11.7-14.2); RDW Standard Deviation 50.6 fL (35.1-46.3); White Blood Cell Count 8.68 K/mm3 (4.00-11.30)
[2022-12-01 05:24] LABS: Albumin, Blood 3.1 g/dL (3.4-5.0); Albumin/Globulin Ratio 1.1 (0.8-1.8); Bilirubin, Total 9.9 mg/dL (0.1-1.0); Bun/Creatinine Ratio 19.6 (12.0-20.0); Calcium, Blood 9.1 mg/dL (8.5-10.1); Creatinine, Blood 1.84 mg/dL (0.40-1.00); Globulin, Blood 2.8 g/dL (2.2-4.0); Potassium, Blood 3.4 mmol/L (3.5-5.5); Total Protein, Blood 5.9 g/dL (6.4-8.2)
--- NOTE | 2022-12-01 06:24 | NUR ---
SHIFT SUMMARY NO ACUTE CHANGED SINCE TRANSFER OF CARE NOTE. SEE NOTE FOR MORE DETAILS. PT IS A BIT MORE ALERT THIS MORNING AND IS BETTER ABLE TO COMMUNICATE SOME OF THEIR NEEDS. OVERALL REMAINS VERY CONFUSED. SBP CONTINUES TO BE SOFT, BUT PO MIDODRINE WAS GIVEN ORDERED VIA EMAR. ZAYAS CATH PATENT AND DRAINING YELLOW URINE TO GRAVITIY. RECTAL TUBE WAS ALSO PLACED TO PREVENT ANYMORE DAMAGE TO PRESSURE ULCER WELL SCEDULED LACTULOSE ENEMAS. PT REPOSITIONED Q2 HOURS ORDERED. NO NEW ORDERS AT THIS TIME, WILL REPORT TO DAYSHIFT ALEXA
--- NOTE | 2022-12-01 07:53 | NUR ---
CARE ASSUMPTION UPON CARE ASSUMPTION PT ALERT, CONFUSED, LETHARGIC. CBG CHECKED: 56. CALL PLACED TO MD KITCHEN. MD KITCHEN W/ ORDERS FOR 1 AMP D50 AND D5 GTT AT 50 MLS/HR, SEE EMAR.
--- NOTE | 2022-12-01 11:34 | NUR ---
Met with pt and s/o Luis this morning. Pt stated, "I know i'm dying" to Luis, and pt's daughter spoke with Dr. Fisher yesterday about hospice. They are all in agreement now to retun home with hospice. They have chosen [facility], and will discharge home on thursday. In the meantime, the pt and family have elected comfort care, which is beginning now.
--- NOTE | 2022-12-01 14:45 | NUR ---
Pt's daughter arrived at pt's room with several other family members. Daughter is tearful, and requesting to know what pain medication her mom has taken. We looked at the MAR together, and the answser was "none". She also inquired about her ammonia levels and saw that they were even 1 point lower than normal range. She then made some phone calls, and cried about the situation a bit more, but appears to be more accepting of it now. Dr. Fisher at bedside speaking to family.
--- NOTE | 2022-12-01 19:07 | NUR ---
SHIFT SUMMARY- PT TRANSFERED FROM PCU AT THE END OF THE SHIFT. PT ARRIVED AND APPEARED COMFORTABLE AT HER TIME OF ARRIVAL. BEDSIDE REPORT COMPLETED WITH NIGHT RN JERMAINE, RESP APPEAR E/U AT THE TIME OF BEDSIDE REPORT. NO CURRENT S&S OF DISTRESS NOTED, BED ALARM FOR SAFETY.
--- NOTE | 2022-12-02 05:11 | NUR ---
Shift Summary Pt on comfort care. At the start of shift pt mostly unresponsive, only briefly openeing eyes in response to my questions. No s/s of pain or distress. Around 0200 pt started calling out and asking me questions, conversing well and displaying AOx2-3 awarness. Pt drinking small sips of water from a straw without issue. She drank some ensure for me although she doesn't like the taste. Pt states she has no pain tonight. No output from rectal tube, low output from Johnson. Pleasant and cooperative, slept through most of the night.
--- NOTE | 2022-12-02 12:00 | NUR ---
CODE STATUS PIANO ASSEMBLER DISCUSSED PATIENTS ESTABLISHED POLST WITH PATIENT AND FAMILY MEMBER. POLST STATES PATIENT ELECTS TO BE A FULL CODE WITH CPR & FULL CARE. PIANO ASSEMBLER REPORTED PATIENT CONFIRMED "YES, THAT IS WHAT I WANT". PATIENT & FAMILY WOULD LIKE TO CONTINUE COMFORT CARE WITH FULL CODE STATUS. THIS RN NOTIFIED DR KITCHEN OF THIS INFORMATION VIA TELEPHONE AND RECEIVED ORDERS TO CHANGE PATIENTS CODE STATUS TO FULL CODE.
[2022-12-02] MEDS ORDERED: ATROPINE SULFATE2 M1 SL (13:16)
[2022-12-02] MEDS ORDERED: MORP20L SL (13:17)
[2022-12-02] MEDS ORDERED: LORA1 PO (13:17)
[2022-12-02] MEDS ORDERED: LEVFLO500 PO (13:18)
--- NOTE | 2022-12-02 13:28 | NUR ---
Pt. is awake in bed and welcomes my visit. Pt. verbalizes remembering this genetics physician from a previous visit. Pt. displays evidence of a present sense of humor. Grandchildren are present at bedside. Pt. is unsettled about being transferred home, as she verbalizes that she "doesn't feel ready for it." Seek to normalize the Pt./care experience. Prayed for Pt. Pt. and family verbalize gratitude for the spiritual care visit.
--- NOTE | 2022-12-02 18:46 | NUR ---
DISCHARGE [facility]SP[facility] TRANSPORTED PATIENT HOME VIA [facility]. PATIENT GOING HOME ON HOSPICE.
== END 2022-12-02 18:30 | disposition hospice, home (50) | DRG 682 ==
LOC: ER 13:58 → PCU 18:10 → MEDS 12-01 17:53
PROVIDERS: Emergency Medicine; ADMIT Internal Medicine
PROC: 0T9B70Z Drainage of Bladder with Drainage Device, Via Natural or Artificial Opening (ICD-10-PCS; principal; 2022-11-30)
DX: N17.0 Acute kidney failure with tubular necrosis (principal); G92.8 Other toxic encephalopathy; L89.303 Pressure ulcer of unspecified buttock, stage 3; N39.0 Urinary tract infection, site not specified; N18.30 Chronic kidney disease, stage 3 unspecified; Z51.5 Encounter for palliative care; K74.60 Unspecified cirrhosis of liver; I95.9 Hypotension, unspecified; K75.81 Nonalcoholic steatohepatitis (NASH); I12.9 Hypertensive chronic kidney disease with stage 1 through stage 4 chronic kidney disease, or unspecified chronic kidney disease; E11.22 Type 2 diabetes mellitus with diabetic chronic kidney disease; J44.9 Chronic obstructive pulmonary disease, unspecified; D63.1 Anemia in chronic kidney disease; K72.90 Hepatic failure, unspecified without coma; E78.5 Hyperlipidemia, unspecified; K21.9 Gastro-esophageal reflux disease without esophagitis; F17.210 Nicotine dependence, cigarettes, uncomplicated; B96.1 Klebsiella pneumoniae [K. pneumoniae] as the cause of diseases classified elsewhere; Z88.1 Allergy status to other antibiotic agents; Z88.2 Allergy status to sulfonamides; Z91.048 Other nonmedicinal substance allergy status; Z86.718 Personal history of other venous thrombosis and embolism; Z98.890 Other specified postprocedural states; Z90.710 Acquired absence of both cervix and uterus; Z90.49 Acquired absence of other specified parts of digestive tract; Z99.81 Dependence on supplemental oxygen; Z88.8 Allergy status to other drugs, medicaments and biological substances; Z88.5 Allergy status to narcotic agent; Z79.899 Other long term (current) drug therapy; Z79.52 Long term (current) use of systemic steroids; Z79.891 Long term (current) use of opiate analgesic; Z79.51 Long term (current) use of inhaled steroids; Z87.19 Personal history of other diseases of the digestive system
CPT/HCPCS: 36415; 51702; 51703; 71045; 74176; 80053; 81001; 82140; 82803; 82947; 84443; 85025; 85610; 87077; 87086; 87186; 93005; 93010; 96361-59; 96365-59; 96375-59; 99285-25; A9270; G0480; J1644; J1956; J2270; J7030; J7060; J7070; J7120; J7121; P9047